=== PATIENT | male | born 1970 | race Two or more races ===

== ENCOUNTER 2020-07-12 09:22 | Outpatient (REF) | payer OTHER, SELFPAY ==
[2020-07-12 10:59] LABS: Alanine Aminotransferase 22 U/L (0-40); Albumin Level 4.2 g/dL (3.5-5.0); Alkaline Phosphatase 104 U/L (39-117); Anion Gap 11 (12-20); Aspartate Amino Transferase 16 U/L (5-37); Bilirubin Total 1.5 mg/dL (0.0-1.0); Blood Urea Nitrogen 14 mg/dL (9-16); Carbon Dioxide 28 mmol/L (22-29); Chloride 102 mmol/L (96-108); Estimated Glomerular Filt Rate > 60; Glucose Fasting 231 mg/dL (60-99); Lipase 24 U/L (8-78); Potassium 3.9 mmol/l (3.3-5.1); Sodium 137 mmol/L (135-145); Total Protein 6.7 g/dL (6.5-8.0)
[2020-07-12 11:22] LABS: Vitamin D 25-OH Total 30.2 ng/mL (>30)
== END 2020-07-12 09:23 | disposition home or self-care (01) ==
LOC: HO.LAB 09:22
PROVIDERS: PCP Internal Medicine; Visit Provider Internal Medicine
DX: E78.00 Pure hypercholesterolemia, unspecified (principal); E55.9 Vitamin D deficiency, unspecified; E11.9 Type 2 diabetes mellitus without complications
CPT/HCPCS: 36415; 80053; 82306; 83690

== ENCOUNTER 2020-09-25 10:37 | Emergency (ER) | payer OTHER, SELFPAY ==
--- NOTE | 2020-09-25 11:12 | ED_ITS ---
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) Exacerbating factors: nothing Relieving factors: nothing Associated symptoms: chills, myalgias and headache Treatments prior to arrival fever: none Related Data Allergies Allergy/AdvReac Type Severity Reaction Status Date / Time No Known Allergies Allergy Verified 08/27/20 08:02 [No Known Allergies*] Review of Systems Review of Systems: Constitutional : positive Fever, positive Chills, positive fatigue, positive Malaise ENT/Mouth : no sore throat, no runny nose Eyes: No Discharge Cardiovascular : posChest Pain, No SOB Respiratory : No Cough, No Sputum Gastrointestinal : No Nausea, No Vomiting, No Diarrhea Genitourinary : No Dysuria, No Urinary Frequency Musculoskeletal : positive Myalgia Skin : No rash Neuro : No Headache all other systems are reviewed and are negative [facility] Past Medical History Medical History Diabetes Surgical History No pertinent past surgical history Family History Family History (Updated 08/27/20 @ 08:04 by Maria G Solis Ginna) Father Stroke Mother No problems noted. Sister Diabetes Social History Social History Smoking Status: Never smoker Use of substances other than those prescribed or required for medical reasons: No Advance Directives: No Advance Directives Information Provided: No Physical Exam Vital Signs: Vital Signs: Last Vital Signs Temp 97.8 F 09/25/20 13:12 Pulse 90 09/25/20 13:12 Resp 18 09/25/20 13:12 BP 135/73 09/25/20 13:12 Pulse Ox 95 09/25/20 13:12 Body Mass Index 27.3 Appearance: Alert. Oriented X3. No acute distress. Eyes: Pupils equal, round and reactive to light. ENT: Pharynx normal. Neck: Normal inspection. Neck supple. CVS: Normal heart rate and rhythm. Pulses normal. Respiratory: No respiratory distress. Breath sounds normal. Abdomen: Soft and non-tender. Skin: Skin warm and dry. Normal skin color. Normal skin turgor. Extremities: No lower extremity edema. No calf ttp Neuro: Oriented X 3. No motor deficit. No sensory deficit. Course Course Course Narrative: + COVID no hypoxia, negative TROP and EKG cam be managed as outpatient MDM - Fever MDM Narrative Medical decision making narrative: 49 yo male with reported fever x 2 days with work exposure of COVID now c/o chest pain all day today early AM will need labs, EKG, CXR, COVID swab, and tylenol, not toxic, not pleuritic no hypoxia doubt PE or ACS seems MSK in nature Lab Data Labs: Lab Results 09/25/20 09/25/20 Range/Units 12:11 12:11 Troponin I High Sens < 3.5 (<3.5-35.0) ng/L Coronavirus (PCR) POSITIVE A (Negative) Influenza Type A (PCR) NEGATIVE (Negative) Influenza Type B (PCR) NEGATIVE (Negative) RSV RNA Qual (PCR) NEGATIVE (Negative) ECG Data ECG #1: Attestation: I personally reviewed and interpreted this ECG as follows: ECG interpretation date: 09/25/20 ECG interpretation time: 12:18 Interpretation: Rate: 92 Rhythm: NSR Center: normal Normal P waves. Normal EDUARD. Normal QRS complex. ST T wave : nonspecific, no NIKKI qTC: normal prior studies: no acute ischemia The study has been interpreted contemporaneously by me. . Discharge Plan Discharge Clinical Impression: COVID-19 Patient Disposition: Home, Self-Care Instructions: COVID-19 (Coronavirus Disease 2019) (ED) Additional Instructions: return to ED for any worsening symptoms or concerns Stand Alone Forms: Work/School Release Print Language: [place]
--- NOTE | 2020-09-25 11:19 | XR_ITS ---
EXAMINATION: XR CHEST CLINICAL INFORMATION: Fever, cough COMPARISON: Chest radiographs 12/04/2019 TECHNIQUE: Portable upright AP view of the chest was obtained. FINDINGS: The lungs are clear and there is no airspace consolidation or definite groundglass opacity. There is no effusion. The costophrenic sulci are clear. The heart is normal in size and the hilar and mediastinal contours are normal. Again, calcified granulomata seen left subpleural lateral upper lobe, or approximately 4 mm. No acute bony abnormality. XR/XR chest 1V IMPRESSION: Unremarkable examination.
[2020-09-25 11:23] VITALS: BP 122/83; PULSE 107; RESP 20; TEMP 37.9; O2SAT 98; BMI 27.3
--- NOTE | 2020-09-25 11:25 | ECG_ITS ---
Test Reason : SOB Blood Pressure : / mmHG Vent. Rate : 092 BPM Atrial Rate : 092 BPM P-R Int : 130 ms QRS Dur : 086 ms QT Int : 318 ms P-R-T Axes : 049 031 022 degrees QTc Int : 393 ms Normal sinus rhythm Nonspecific T wave abnormality Abnormal ECG When compared with ECG of 04-DEC-2019 14:53, No significant change was found Referred By: Delisa Munoz Electronically Signed By:Tin Castanon
[2020-09-25] MEDS: Acetaminophen 325 MG TABLET 650 MG PO (12:04)
[2020-09-25 12:48] LABS: Troponin-I High Sensitivity < 3.5 ng/L (<3.5-35.0)
[2020-09-25 13:01] LABS: Influenza A PCR NEGATIVE (Negative); Influenza B PCR NEGATIVE (Negative); Resp Syncy Virus RNA Qual PCR NEGATIVE (Negative); SARS COV2 PCR INHOUSE POSITIVE (Negative)
[2020-09-25 13:12] VITALS: BP 135/73; PULSE 90; RESP 18; TEMP 36.6; O2SAT 95
== END 2020-09-25 14:12 | disposition home or self-care (01) ==
PROVIDERS: Emergency Provider Emergency Medicine; PCP Internal Medicine
DX: U07.1 COVID-19 (principal); E11.9 Type 2 diabetes mellitus without complications
CPT/HCPCS: 0241U; 71045; 84484; 93005; 99284

== ENCOUNTER 2020-10-02 11:27 | Emergency (ER) | payer OTHER, SELFPAY ==
[2020-10-02 11:55] VITALS: BP 136/71; PULSE 96; RESP 16; TEMP 37.5; O2SAT 96; BMI 27.3
[2020-10-02 12:00] VITALS: BP 133/66; PULSE 96; RESP 16; TEMP 36.9; O2SAT 98
--- NOTE | 2020-10-02 12:04 | ED.GENADULT ---
HPI - General Adult General Chief complaint: Weakness Stated complaint: covid symptoms Time Seen by Provider: 10/02/20 12:04 Source: patient Mode of arrival: ambulatory Limitations: language barrier History of Present Illness HPI narrative: 49 y/o male who was diagnosed with COVID-19 nine days ago presents to the ED from home with reports of decreased appetite and generalized weakness. He called his doctor this morning who instructed him to come to the ER for further evaluation. He denies vomiting, diarrhea, abdominal pain, SOB, chest pain or difficultly breathing. He has been drinking Gatorade and urinating normally. He reports body aches and mild non-productive cough that have been the same since his diagnosis 9 days ago. Related Data Previous Rx's Medication Instructions Recorded ondansetron HCl [Zofran] 4 mg PO Q8H PRN #10 tab 10/02/20 Allergies Allergy/AdvReac Type Severity Reaction Status Date / Time No Known Allergies Allergy Verified 08/27/20 08:02 [No Known Allergies*] Review of Systems Review of Systems: Constitutional: + Fever, No Chills ENT/Mouth: No sore throat, No Rhinorrhea, No Swallowing Difficulty Eyes: No Eye Pain, No Swelling, No Redness Cardiovascular: No Chest Pain, No SOB, No Orthopnea, No Edema Respiratory: No Cough, No Sputum, No Wheezing, No dyspnea Gastrointestinal: + Nausea, No Vomiting, No Diarrhea, No abdominal Pain, No Hematochezia, No Melena Genitourinary: No Dysuria, No Urinary Frequency, No Hematuria Musculoskeletal: No joint pain, + Myalgias Skin: No Skin Lesions, No rash Neuro: + Weakness, No Numbness, No Dizziness, + Headache Psych: No Anxiety/Panic, No Depression Heme/Lymph: No Bruising, No Lymphadenopathy Endocrine: No Polyuria, No Polydipsia PMFSH Past Medical History Attestation statement: The following information was validated with the patient. Medical History Diabetes Surgical History No pertinent past surgical history Family History Family History (Updated 08/27/20 @ 08:04 by SUMMER Escalera) Father Stroke Mother No problems noted. Sister Diabetes Social History Social History Alcohol intake: never Smoking Status: Never smoker Advance Directives: No Advance Directives Information Provided: No Physical Exam Vital Signs: Vital Signs: Last Vital Signs Temp 99.5 F 10/02/20 11:55 Pulse 96 10/02/20 11:55 Resp 16 10/02/20 11:55 BP 136/71 10/02/20 11:55 Pulse Ox 96 10/02/20 11:55 Body Mass Index 27.3 Appearance: Alert. Oriented X3. No acute distress. Eyes: Pupils equal, round and reactive to light. ENT: Pharynx normal. Neck: Normal inspection. Neck supple. CVS: Normal heart rate and rhythm. Pulses normal. Respiratory: No respiratory distress. Breath sounds normal. Abdomen: Soft and nontender. +BS x4 Skin: Skin warm and dry. Normal skin color. Normal skin turgor. No rashes. Extremities: No lower extremity edema. Neuro: Oriented X 3. No motor deficit. No sensory deficit. Course Course Course Narrative: 49 y/o male diagnosed with COVID-19 nine days ago presenting with persistent symptoms. Vitals are reassuring and he denies SOB, chest pain, difficulty breathing. No N/V/D. Will check basic labs to r/o renal failure and metabolic derrangements. Reevaluation(s) Reevaluation #1: Lab workup unremarkable aside from hyperglycemia, 320. Has been drinking gatorade. Vitals stable. No SOB and lungs are clear. He is stable for dischage. He has been counseled and all questions were answered. Medical Decision Making Lab Data Result diagrams: 10/02/20 12:29 10/02/20 12:29 Labs: Lab Results 10/02/20 10/02/20 Range/Units 12:29 12:29 WBC 4.4 L (4.8-10.8) X10*3/uL RBC 4.95 (4.60-5.80) X10*6/uL Hgb 14.6 (14.0-18.0) g/dl Hct 43.6 (42-52) % MCV 88.1 (80-98) fL MCH 29.5 (27.0-33.0) pg MCHC 33.5 (31.0-36.0) g/dl RDW 11.3 (11.0-16.0) % Plt Count 100 L (160-400) X10*3/uL MPV 11.9 (9.4-12.4) fL Immature Gran % (Auto) 0.5 H (0.0-0.4) % Neut % (Auto) 73.8 H (45-73) % Lymph % (Auto) 18.6 L (20-40) % [place] % (Auto) 6.9 (2-11) % Eos % (Auto) 0.0 (0-4) % Baso % (Auto) 0.2 (0-2) % Lymph # (Auto) 0.8 L (1.2-4.9) X10*3/uL [place] # (Auto) 0.3 (0.1-1.2) X10*3/uL Eos # (Auto) 0.0 (0.0-0.4) X10*3/uL Baso # (Auto) 0.0 (0.0-0.2) X10*3/uL Abs Immat Gran (auto) 0.02 (0.00-0.03) X10*3/uL Absolute Neuts (auto) 3.2 (2.0-8.3) X10*3/uL Absolute Nucleated RBC 0.000 (0.0-0.012) X10*3/uL Nucleated RBC % (auto) 0.0 (0.0-0.2) /100WBC Sodium 134 L (135-145) mmol/L Potassium 4.3 (3.3-5.1) mmol/l Chloride 97 (96-108) mmol/L Carbon Dioxide 28 (22-29) mmol/L Anion Gap 13 (12-20) BUN 16 (9-16) mg/dL Creatinine 1.10 (0.5-1.4) mg/dL Estim Creat Clear Calc 78.5 Estimated GFR > 60 Random Glucose 321 H (60-115) mg/dL Calcium 8.2 L D (8.4-10.2) mg/dL Magnesium 1.9 (1.6-2.6) mg/dL Discharge Plan Discharge Clinical Impression: COVID-19 Patient Disposition: Home, Self-Care Instructions: COVID-19 (Coronavirus Disease 2019) (ED) Additional Instructions: You have COVID-19. Time to feel better varies from case to case. Your lab workup today was largely unremarkable. Your glucose was elevated at 320. Your vital signs were normal. There is no indication for admission to the hospital at this time. It is important that you stay hydrated and continue to eat small meals throughout the day even though you do not have much an appetite. Take over the counter cold/flu medications as needed for your symptoms. If you develop shortness of breath, chest pain, difficulty breathing, persistent vomiting or diarrhea come back to the ER for further evaluation. Follow up with your doctor this week. Prescriptions: New ondansetron HCl [Zofran] 4 mg tablet 4 mg PO Q8H PRN (Reason: nausea and vomiting) Qty: 10 RF: 0
[2020-10-02 12:35] LABS: MANUAL DIFF FLAG NO
[2020-10-02 12:37] LABS: Basophils Percent Auto 0.2 % (0-2); Hematocrit 43.6 % (42-52); Hemoglobin 14.6 g/dl (14.0-18.0); Imm Gran Abs Auto 0.02 X10*3/uL (0.00-0.03); Imm Gran Pct Auto 0.5 % (0.0-0.4); Lymphocytes Absolute Auto 0.8 X10*3/uL (1.2-4.9); Lymphocytes Percent Auto 18.6 % (20-40); Mean Corpuscular HGB Conc 33.5 g/dl (31.0-36.0); Mean Corpuscular Hemoglobin 29.5 pg (27.0-33.0); Mean Corpuscular Volume 88.1 fL (80-98); Mean Platelet Volume 11.9 fL (9.4-12.4); Monocytes Absolute Auto 0.3 X10*3/uL (0.1-1.2); Monocytes Percent Auto 6.9 % (2-11); Neutrophils Absolute Auto 3.2 X10*3/uL (2.0-8.3); Neutrophils Percent Auto 73.8 % (45-73); Platelet Count 100 X10*3/uL (160-400); Red Blood Count 4.95 X10*6/uL (4.60-5.80); Red Cell Distribution Width 11.3 % (11.0-16.0); White Blood Count 4.4 X10*3/uL (4.8-10.8)
[2020-10-02 13:11] LABS: Anion Gap 13 (12-20); Blood Urea Nitrogen 16 mg/dL (9-16); Calcium 8.2 mg/dL (8.4-10.2); Carbon Dioxide 28 mmol/L (22-29); Chloride 97 mmol/L (96-108); Creatinine Clr Calc Pharmacy 78.5; Estimated Glomerular Filt Rate > 60; Glucose Random 321 mg/dL (60-115); Magnesium 1.9 mg/dL (1.6-2.6); Potassium 4.3 mmol/l (3.3-5.1); Sodium 134 mmol/L (135-145)
== END 2020-10-02 13:46 | disposition home or self-care (01) ==
PROVIDERS: Physician Assistant; Emergency Provider Emergency Medicine; PCP Internal Medicine
DX: U07.1 COVID-19 (principal); E11.9 Type 2 diabetes mellitus without complications
CPT/HCPCS: 36415; 80048; 83735; 85025; 99283; 99284

== ENCOUNTER 2020-10-07 19:30 | Inpatient (IN) | payer OTHER, SELFPAY ==
[2020-10-07 19:44] VITALS: BP 141/79; PULSE 91; RESP 26; TEMP 36.9; O2SAT 85; BMI 27.3
--- NOTE | 2020-10-07 19:47 | ECG_ITS ---
Test Reason : SOB Blood Pressure : / mmHG Vent. Rate : 091 BPM Atrial Rate : 091 BPM P-R Int : 118 ms QRS Dur : 086 ms QT Int : 386 ms P-R-T Axes : 047 020 023 degrees QTc Int : 474 ms Normal sinus rhythm Normal ECG When compared with ECG of 25-SEP-2020 12:08, QT has lengthened Referred By: Kevan Rojas Electronically Signed By:NANO OJEDA
[2020-10-07 20:14] LABS: Glucose, Whole Blood 304 mg/dL (60-115)
[2020-10-07 20:22] LABS: Basophils Percent Auto 0.2 % (0-2); Eosinophils Percent Auto 0.8 % (0-4); Hematocrit 41.2 % (42-52); Imm Gran Abs Auto 0.02 X10*3/uL (0.00-0.03); Imm Gran Pct Auto 0.4 % (0.0-0.4); Lymphocytes Absolute Auto 1.2 X10*3/uL (1.2-4.9); MANUAL DIFF FLAG SCAN; Mean Corpuscular Hemoglobin 29.8 pg (27.0-33.0); Mean Corpuscular Volume 87.7 fL (80-98); Mean Platelet Volume 11.1 fL (9.4-12.4); Monocytes Absolute Auto 0.6 X10*3/uL (0.1-1.2); Neutrophils Absolute Auto 3.5 X10*3/uL (2.0-8.3); Neutrophils Percent Auto 65.6 % (45-73); Platelet Count 186 X10*3/uL (160-400); Red Cell Distribution Width 11.2 % (11.0-16.0); SCAN SMEAR FLAG 1; White Blood Count 5.3 X10*3/uL (4.8-10.8)
[2020-10-07 20:28] LABS: Prothrombin Time 11.7 SEC (10.8-13.0)
[2020-10-07 20:31] LABS: D Dimer 432 NG/ML; Partial Thromboplastin Time 28.7 SEC (24.1-38.0)
[2020-10-07 20:39] LABS: SLIDE REVIEW VERIFIED
--- NOTE | 2020-10-07 20:41 | ED_ITS ---
HPI - SOB/Dyspnea General Chief Complaint: Dyspnea Stated Complaint: ?vovid Time Seen by Provider: 10/07/20 19:36 Source: patient Mode of arrival: ambulatory Limitations: no limitations History of Present Illness HPI Narrative: Patient presents to the ED for worsening cough with chest pain. Patient presented with O2 saturation 85% L on room air but was not in any distress. Patient is a known COVID positive. Patient denies any swelling of lower extremity, calf pain, coughing up blood. Related Data Previous Rx's Medication Instructions Recorded ondansetron HCl [Zofran] 4 mg PO Q8H PRN #10 tab 10/02/20 Allergies Allergy/AdvReac Type Severity Reaction Status Date / Time No Known Allergies Allergy Verified 10/07/20 19:48 [No Known Allergies*] Review of Systems Review of Systems: Yes all other systems are reviewed and are negative Constitutional: Constitutional: Reports as per HPI, Reports no additional constitutional complaints and Reports fatigue Eyes: Eyes: Reports as per HPI and Reports no additional eye complaints ENT: Reports system reviewed and no additional complaints, except as documented and Reports as per HPI Cardiovascular: Cardiovascular: Reports as per HPI and Reports no additional cardiovascular complaints Respiratory: Respiratory: Reports as per HPI, Reports no additional respiratory complaints and Reports pain with cough Gastrointestinal: Gastrointestinal: Reports as per HPI and Reports no additional gastrointestinal complaints Genitourinary: Genitourinary: Reports no additional male genitourinary complaints and Reports as per HPI Musculoskeletal: Musculoskeletal: Reports no additional musculoskeletal complaints and Reports as per HPI Integumentary/Breasts: Skin/Breast: Reports system reviewed and no additional complaints, except as docu and Reports as per HPI Neurologic: Reports system reviewed and no additional complaints, except as documented and Reports as per HPI Psychiatric: Psychiatric: Reports no additional psychiatric complaints and Reports as per HPI Endocrine: Endocrine: Reports fatigue [facility] Past Medical History Medical History Diabetes Surgical History No pertinent past surgical history Family History Family History (Updated 08/27/20 @ 08:04 by SUMMER Escalera) Father Stroke Mother No problems noted. Sister Diabetes Social History Social History Alcohol intake: never Smoking Status: Never smoker Advance Directives: No Advance Directives Information Provided: Yes Physical Exam Vital Signs: Vital Signs: Last Vital Signs Temp 97.9 F 10/08/20 00:00 Pulse 73 10/08/20 00:00 Resp 23 H 10/08/20 00:00 BP 156/81 H 10/08/20 00:00 Pulse Ox 94 10/08/20 00:00 Body Mass Index 27.3 Const: General: cooperative, healthy appearing, comfortable, no acute distress and well developed Orientation/consciousness: patient oriented x3 HENMT: Head: Yes normal to inspection and Yes No palpable skull fracture present Eyes: General: appearance normal, both eyes and all related structures Neck: Neck: Yes normal visual inspection and Yes full ROM Chest: Chest palpation & inspection: normal inspection of the chest and normal palpation of entire chest wall Breast/axilla inspection: normal inspection of the breasts Resp: Effort & Inspection: normal respiratory effort and able to speak in complete sentences Auscultation: clear to auscultation bilaterally Cardio: Jugular venous distension: no JVD Heart sounds: S1 normal heart sound present and S2 normal heart sound present GI: Inspection: Yes normal to inspection and No abdominal wall ecchymosis Palpation (GI): Soft to palpation, not firm, nontender, no guarding and not rigid : General: No CVA tenderness and Yes no CVA tenderness Back/Spine/Pelvis: Back: no CVA tenderness, No CVA tenderness and No back tenderness Skin: General skin exam: no rashes or lesions noted Neuro: General: patient oriented x3, gait normal and CN's II-XI intact bilaterally Cranial nerves: Yes CN's II-XII intact bilaterally Extrem: Other: negtaive For swelling of lower extremities, calf pain, redness, or pitting edema General: Yes normal to inspection and Yes full ROM Psych: Appearance: grossly normal, well kempt and not disheveled Course Course Course Narrative: Patient on 4 L of oxygen nasal cannula O2 saturation 93%. Patient not any distress. Patient have repeat chest x-ray, labs, Reevaluation(s) Reevaluation #1: Patient states not in distress. Patient has no elevated white blood cell count. Patient had Mya x-ray couple of days ago. Patient is sent for chest CT to rule out PE in the meantime patient given Decadron and also lactic and blood culture sent. Would not give patient 2nd fluids so he does not become fluid overload in COVID Time: 21:20 Reevaluation #2: Chest CT negative for PE. Patient started on Decadron. Spoke with hospitalist who recommend starting IV antibiotics although this is a viral infection. Patient to be admitted. Patient O2 saturation on 4 L 97%. Time: 22:53 MDM - SOB/Dyspnea MDM Narrative Medical decision making narrative: COVID-19. Lab Data Result diagrams: 10/07/20 20:15 10/07/20 20:15 Labs: Lab Results 10/07/20 10/07/20 10/07/20 Range/Units 20:04 20:15 20:15 WBC 5.3 (4.8-10.8) X10*3/uL RBC 4.70 (4.60-5.80) X10*6/uL Hgb 14.0 (14.0-18.0) g/dl Hct 41.2 L (42-52) % MCV 87.7 (80-98) fL MCH 29.8 (27.0-33.0) pg MCHC 34.0 (31.0-36.0) g/dl RDW 11.2 (11.0-16.0) % Plt Count 186 D (160-400) X10*3/uL MPV 11.1 (9.4-12.4) fL Immature Gran % (Auto) 0.4 (0.0-0.4) % Neut % (Auto) 65.6 (45-73) % Lymph % (Auto) 22.0 (20-40) % [place] % (Auto) 11.0 (2-11) % Eos % (Auto) 0.8 (0-4) % Baso % (Auto) 0.2 (0-2) % Lymph # (Auto) 1.2 (1.2-4.9) X10*3/uL [place] # (Auto) 0.6 (0.1-1.2) X10*3/uL Eos # (Auto) 0.0 (0.0-0.4) X10*3/uL Baso # (Auto) 0.0 (0.0-0.2) X10*3/uL Abs Immat Gran (auto) 0.02 (0.00-0.03) X10*3/uL Absolute Neuts (auto) 3.5 (2.0-8.3) X10*3/uL Absolute Nucleated RBC 0.000 (0.0-0.012) X10*3/uL Nucleated RBC % (auto) 0.0 (0.0-0.2) /100WBC Smear Tech's Comments VERIFIED PT 11.7 (10.8-13.0) SEC INR 1.0 (0.9-1.1) APTT 28.7 (24.1-38.0) SEC D-Dimer 432 NG/ML Sodium (135-145) mmol/L Potassium (3.3-5.1) mmol/l Chloride (96-108) mmol/L Carbon Dioxide (22-29) mmol/L Anion Gap (12-20) BUN (9-16) mg/dL Creatinine (0.5-1.4) mg/dL Estim Creat Clear Calc Estimated GFR POC Glucose 304 H (60-115) mg/dL Random Glucose (60-115) mg/dL Lactic Acid (0.5-2.0) mmol/L Calcium (8.4-10.2) mg/dL Ferritin (20-250) ng/mL Total Bilirubin (0.0-1.0) mg/dL Direct Bilirubin (0.0-0.5) mg/dL AST (5-37) U/L ALT (0-40) U/L Alkaline Phosphatase (39-117) U/L Lactate Dehydrogenase (118-273) U/L Troponin I High Sens (<3.5-35.0) ng/L B-Natriuretic Peptide (<100) pg/mL Total Protein (6.5-8.0) g/dL Albumin (3.5-5.0) g/dL Procalcitonin ng/mL 10/07/20 10/07/20 10/07/20 Range/Units 20:15 20:15 20:15 WBC (4.8-10.8) X10*3/uL RBC (4.60-5.80) X10*6/uL Hgb (14.0-18.0) g/dl Hct (42-52) % MCV (80-98) fL MCH (27.0-33.0) pg MCHC (31.0-36.0) g/dl RDW (11.0-16.0) % Plt Count (160-400) X10*3/uL MPV (9.4-12.4) fL Immature Gran % (Auto) (0.0-0.4) % Neut % (Auto) (45-73) % Lymph % (Auto) (20-40) % [place] % (Auto) (2-11) % Eos % (Auto) (0-4) % Baso % (Auto) (0-2) % Lymph # (Auto) (1.2-4.9) X10*3/uL [place] # (Auto) (0.1-1.2) X10*3/uL Eos # (Auto) (0.0-0.4) X10*3/uL Baso # (Auto) (0.0-0.2) X10*3/uL Abs Immat Gran (auto) (0.00-0.03) X10*3/uL Absolute Neuts (auto) (2.0-8.3) X10*3/uL Absolute Nucleated RBC (0.0-0.012) X10*3/uL Nucleated RBC % (auto) (0.0-0.2) /100WBC Smear Tech's Comments PT (10.8-13.0) SEC INR (0.9-1.1) APTT (24.1-38.0) SEC D-Dimer NG/ML Sodium 138 (135-145) mmol/L Potassium 4.3 (3.3-5.1) mmol/l Chloride 100 (96-108) mmol/L Carbon Dioxide 30 H (22-29) mmol/L Anion Gap 12 (12-20) BUN 16 (9-16) mg/dL Creatinine 0.89 (0.5-1.4) mg/dL Estim Creat Clear Calc 97.1 Estimated GFR > 60 POC Glucose (60-115) mg/dL Random Glucose 346 H (60-115) mg/dL Lactic Acid (0.5-2.0) mmol/L Calcium 8.1 L (8.4-10.2) mg/dL Ferritin 1032 H (20-250) ng/mL Total Bilirubin 0.8 (0.0-1.0) mg/dL Direct Bilirubin 0.3 (0.0-0.5) mg/dL AST 31 D (5-37) U/L ALT 25 (0-40) U/L Alkaline Phosphatase 63 D (39-117) U/L Lactate Dehydrogenase 233 (118-273) U/L Troponin I High Sens < 3.5 (<3.5-35.0) ng/L B-Natriuretic Peptide (<100) pg/mL Total Protein 5.7 L (6.5-8.0) g/dL Albumin 3.1 L D (3.5-5.0) g/dL Procalcitonin 0.13 ng/mL 10/07/20 10/07/20 Range/Units 20:15 22:28 WBC (4.8-10.8) X10*3/uL RBC (4.60-5.80) X10*6/uL Hgb (14.0-18.0) g/dl Hct (42-52) % MCV (80-98) fL MCH (27.0-33.0) pg MCHC (31.0-36.0) g/dl RDW (11.0-16.0) % Plt Count (160-400) X10*3/uL MPV (9.4-12.4) fL Immature Gran % (Auto) (0.0-0.4) % Neut % (Auto) (45-73) % Lymph % (Auto) (20-40) % [place] % (Auto) (2-11) % Eos % (Auto) (0-4) % Baso % (Auto) (0-2) % Lymph # (Auto) (1.2-4.9) X10*3/uL [place] # (Auto) (0.1-1.2) X10*3/uL Eos # (Auto) (0.0-0.4) X10*3/uL Baso # (Auto) (0.0-0.2) X10*3/uL Abs Immat Gran (auto) (0.00-0.03) X10*3/uL Absolute Neuts (auto) (2.0-8.3) X10*3/uL Absolute Nucleated RBC (0.0-0.012) X10*3/uL Nucleated RBC % (auto) (0.0-0.2) /100WBC Smear Tech's Comments PT (10.8-13.0) SEC INR (0.9-1.1) APTT (24.1-38.0) SEC D-Dimer NG/ML Sodium (135-145) mmol/L Potassium (3.3-5.1) mmol/l Chloride (96-108) mmol/L Carbon Dioxide (22-29) mmol/L Anion Gap (12-20) BUN (9-16) mg/dL Creatinine (0.5-1.4) mg/dL Estim Creat Clear Calc Estimated GFR POC Glucose (60-115) mg/dL Random Glucose (60-115) mg/dL Lactic Acid 1.2 (0.5-2.0) mmol/L Calcium (8.4-10.2) mg/dL Ferritin (20-250) ng/mL Total Bilirubin (0.0-1.0) mg/dL Direct Bilirubin (0.0-0.5) mg/dL AST (5-37) U/L ALT (0-40) U/L Alkaline Phosphatase (39-117) U/L Lactate Dehydrogenase (118-273) U/L Troponin I High Sens (<3.5-35.0) ng/L B-Natriuretic Peptide 53 (<100) pg/mL Total Protein (6.5-8.0) g/dL Albumin (3.5-5.0) g/dL Procalcitonin ng/mL ECG Data Interpretation: Normal sinus rhythm. Normal EKG. Ventricular rate 91. AR interval 118. QRS duration 86. QTC 474. Negative STEMI Discharge Plan Discharge Clinical Impression: COVID-19 Patient Disposition: Admitted As Inpatient Interventions: Admission Worksheet (ED) Last Done: 10/08/20 00:19 Discharge Date/Time: 10/08/20 01:45
[2020-10-07] MEDS: 0.9 % Sodium Chloride 1,000 ML 999 ML IV (20:48)
[2020-10-07 20:51] LABS: Alanine Aminotransferase 25 U/L (0-40); Albumin Level 3.1 g/dL (3.5-5.0); Alkaline Phosphatase 63 U/L (39-117); Anion Gap 12 (12-20); Aspartate Amino Transferase 31 U/L (5-37); Bilirubin Direct 0.3 mg/dL (0.0-0.5); Bilirubin Total 0.8 mg/dL (0.0-1.0); Blood Urea Nitrogen 16 mg/dL (9-16); Calcium 8.1 mg/dL (8.4-10.2); Carbon Dioxide 30 mmol/L (22-29); Chloride 100 mmol/L (96-108); Creatinine Clr Calc Pharmacy 97.1; Estimated Glomerular Filt Rate > 60; Glucose Random 346 mg/dL (60-115); Lactate Dehydrogenase 233 U/L (118-273); Potassium 4.3 mmol/l (3.3-5.1); Sodium 138 mmol/L (135-145); Total Protein 5.7 g/dL (6.5-8.0)
[2020-10-07 20:54] LABS: B Type Natriuretic Peptide 53 pg/mL (<100); Troponin-I High Sensitivity < 3.5 ng/L (<3.5-35.0)
--- NOTE | 2020-10-07 20:58 | CT_ITS ---
EXAMINATION: CT ANGIOGRAM OF THE CHEST WITH AND WITHOUT CONTRAST (CT PULMONARY ANGIOGRAM FOR PE) CLINICAL INFORMATION: Reason for Exam D-dimer elevated. Hypoxic. COVID positive. PE? COMPARISON: None TECHNIQUE: Prior to contrast administration, noncontrast localization images were obtained. Subsequently, multidetector volumetric imaging was performed from the thoracic inlet to below the diaphragms following the administration of 80 mL Omnipaque 350 intravenous contrast. No contrast reaction reported Sagittal, coronal, and MIP oblique sagittal reformatted images were obtained on the CT workstation, uploaded to PACS, and reviewed. This CT examination was performed using dose optimization techniques as appropriate, variously including the following: *Automated exposure control *Adjustment of mA and/or kV according to patient size (this includes techniques or standardized protocols for targeted exams where dose is matched to indication/reason for exam; i.e. extremities or head) *Use of iterative reconstruction technique Total exam dose-length product 335 mGy-cm FINDINGS: QUALITY OF STUDY/CONTRAST BOLUS: Satisfactory. PULMONARY ARTERIES: No central or segmental pulmonary emboli. THORACIC AORTA: No aneurysm or dissection. LUNG: There are bilateral upper lobe, superior segment and posterior segment lower lobe and lingular peripherally based infiltrate/consolidation. PLEURA: No pleural effusion or pneumothorax. MEDIASTINUM: Normal heart size. No pericardial effusion. No hilar or mediastinal lymphadenopathy. No evidence of septal bowing or right heart strain. CHEST WALL/AXILLA: No axillary or internal mammary lymphadenopathy. OSSEOUS STRUCTURES: No acute or suspicious osseous abnormality. UPPER ABDOMEN: Visualized liver, spleen, pancreas, bilateral adrenal glands and the gallbladder appears unremarkable. No reflux of contrast into the hepatic veins to suggest elevated right heart pressures. CT/CT angio chest PE protocol IMPRESSION: No evidence of PE. No evidence of aortic aneurysm or dissection. Diffuse multilobar infiltrates. VTE: negative
[2020-10-07 21:10] LABS: Procalcitonin 0.13 ng/mL
[2020-10-07 21:54] LABS: Ferritin 1032 ng/mL (20-250)
[2020-10-07] MEDS: dexAMETHasone sod phosphate 4 MG/ML VIAL 6 MG IVPUSH (22:00)
[2020-10-07] MEDS: iohexoL 350 MG/ML 100 ML INFUS..BTL 65 ML IV (22:08)
[2020-10-07 22:40] VITALS: BP 137/87; PULSE 77; RESP 22; TEMP 37.1; O2SAT 3
--- NOTE | 2020-10-07 22:47 | P.HPHOSP_ITS ---
History of Present Illness Date of Service: 10/07/20 Chief Complaint: Shortness of breath 49Y male with a past medical history of diabetes, recent diagnosis of COVID about 2 weeks ago presented to the hospital with complaint of shortness of breath. Patient mentioned that over the past few days he has been having increased shortness of breath and cough with associated chest discomfort. Denies any fever chills. Denies any headaches numbness tingling. Denies any GI or symptoms. Review of all other systems is negative except mentioned above ER course: Per ER team patient appears to be in no acute distress. Patient was saturating at 85% on room air. Placed on 4L supplemental oxygen with improvement in oxygen to 93%. Patient was given dexamethasone and antibiotics for multifocal pneumonia noted o n the CT scan. No evidence of PE. Review of Systems Neurologic: Reports system reviewed and no additional complaints, except as documented and Reports as per [facility] Medical History Diabetes Family History (Updated 08/27/20 @ 08:04 by SUMMER Escalera) Father Stroke Mother No problems noted. Sister Diabetes Surgical History No pertinent past surgical history Social History Household Members: Spouse Housing: House Do you presently have visiting nurse or other home services: No Alcohol intake: never Smoking Status: Never smoker Use of substances other than those prescribed or required for medical reasons: No Have you been hit, kicked, punched, or otherwise hurt by someone within the past year? If so, by whom?: No Do you feel safe in your current relationship?: Yes Is there a partner from a previous relationship who is making you feel unsafe now?: No Are you made to feel afraid or neglected: No Advance Directives: No Advance Directives Information Provided: Yes Do you have thoughts of harming others: None Do you have a plan to hurt others: No Plan Recently lost weight without trying: No Meds Allergies Allergy/AdvReac Type Severity Reaction Status Date / Time No Known Allergies Allergy Verified 10/07/20 19:48 [No Known Allergies*] Physical Exam Vital Signs and Narrative: Vital Signs: Last Vital Signs Temp 98.8 F 10/07/20 22:40 Pulse 77 10/07/20 22:40 Resp 22 H 10/07/20 22:40 BP 137/87 10/07/20 22:40 Pulse Ox 3 L 10/07/20 22:40 Body Mass Index 27.3 Gen: Appears be in no acute distress HEENT: NCAT, Moist mucosa. Pulmonary: Course breath sounds, fair air entry CVS: Normal S1-S2 Abdomen: BS+, Soft, Nontender Extremities: Warm well perfused Neuro: Alert and awake. Results Labs CBC and Chem 7: 10/07/20 20:15 10/07/20 20:15 Labs: Laboratory Results - last 24 hr 10/07/20 10/07/20 10/07/20 20:04 20:15 20:15 MCV 87.7 MCH 29.8 MCHC 34.0 RDW 11.2 Plt Count 186 D MPV 11.1 Immature Gran % (Auto) 0.4 Neut % (Auto) 65.6 Lymph % (Auto) 22.0 Sunflower % (Auto) 11.0 Eos % (Auto) 0.8 Baso % (Auto) 0.2 Lymph # (Auto) 1.2 Sunflower # (Auto) 0.6 Eos # (Auto) 0.0 Baso # (Auto) 0.0 Abs Immat Gran (auto) 0.02 Absolute Neuts (auto) 3.5 Absolute Nucleated RBC 0.000 Nucleated RBC % (auto) 0.0 Smear Tech's Comments VERIFIED PT 11.7 INR 1.0 APTT 28.7 D-Dimer 432 Anion Gap Estim Creat Clear Calc Estimated GFR POC Glucose 304 H Random Glucose Calcium Ferritin Total Bilirubin Direct Bilirubin AST ALT Alkaline Phosphatase Lactate Dehydrogenase Troponin I High Sens B-Natriuretic Peptide Total Protein Albumin Procalcitonin 10/07/20 10/07/20 10/07/20 20:15 20:15 20:15 MCV MCH MCHC RDW Plt Count MPV Immature Gran % (Auto) Neut % (Auto) Lymph % (Auto) Sunflower % (Auto) Eos % (Auto) Baso % (Auto) Lymph # (Auto) Sunflower # (Auto) Eos # (Auto) Baso # (Auto) Abs Immat Gran (auto) Absolute Neuts (auto) Absolute Nucleated RBC Nucleated RBC % (auto) Smear Tech's Comments PT INR APTT D-Dimer Anion Gap 12 Estim Creat Clear Calc 97.1 Estimated GFR > 60 POC Glucose Random Glucose 346 H Calcium 8.1 L Ferritin 1032 H Total Bilirubin 0.8 Direct Bilirubin 0.3 AST 31 D ALT 25 Alkaline Phosphatase 63 D Lactate Dehydrogenase 233 Troponin I High Sens < 3.5 B-Natriuretic Peptide Total Protein 5.7 L Albumin 3.1 L D Procalcitonin 0.13 10/07/20 20:15 MCV MCH MCHC RDW Plt Count MPV Immature Gran % (Auto) Neut % (Auto) Lymph % (Auto) Sunflower % (Auto) Eos % (Auto) Baso % (Auto) Lymph # (Auto) Sunflower # (Auto) Eos # (Auto) Baso # (Auto) Abs Immat Gran (auto) Absolute Neuts (auto) Absolute Nucleated RBC Nucleated RBC % (auto) Smear Tech's Comments PT INR APTT D-Dimer Anion Gap Estim Creat Clear Calc Estimated GFR POC Glucose Random Glucose Calcium Ferritin Total Bilirubin Direct Bilirubin AST ALT Alkaline Phosphatase Lactate Dehydrogenase Troponin I High Sens B-Natriuretic Peptide 53 Total Protein Albumin Procalcitonin Imaging Radiologist's Impressions: Impressions Chest CTA 10/07/20 20:58 IMPRESSION: No evidence of PE. No evidence of aortic aneurysm or dissection. Diffuse multilobar infiltrates. VTE: negative Assessment and Plan (1) COVID-19: Status: Acute 49-year-old male with a past medical history of diabetes presented to the hospital with a chief complaint of shortness of breath. Patient was diagnosed with COVID about 2 weeks ago. Currently noted to be hypoxic CT scan showed multifocal pneumonia. Admitted to the hospital for further management. COVID-19 pneumonia: CT scan showed multifocal pneumonia Continue ceftriaxone azithromycin. Patient was hypoxic to 85% on room air-supplemental oxygen with goal saturation about 95%. Titrate oxygen requirements as needed. Albuterol MDI Continue dexamethasone 6 mg daily ID consult Positive D-dimer: CT scan showed no evidence of PE. Diabetes: Insulin sliding scale DVT prophylaxis: Lovenox Full code
[2020-10-07 22:49] LABS: Lactic Acid 1.2 mmol/L (0.5-2.0)
[2020-10-07] MEDS: cefTRIAXone sodium 1 GM in 0.9 % Sodium Chloride 50 ML IV (23:11)
[2020-10-07] MEDS: Azithromycin 500 MG in 0.9 % Sodium Chloride 250 ML 125 MG IV (23:39)
[2020-10-07 23:57] VITALS: BP 137/87; PULSE 77; RESP 21; TEMP 36.9; O2SAT 3
[2020-10-08] VITALS (7 sets, daily range): BP systolic 130–158; BP diastolic 81–92; PULSE 73–78; RESP 16–23; TEMP 36.1–36.6; O2SAT 93–97; BMI 21.4
[2020-10-08 00:27] LABS: Troponin-I High Sensitivity < 3.5 ng/L (<3.5-35.0)
[2020-10-08] MEDS: 0.9 % Sodium Chloride Flush 3 ML SYRINGE IVFLUSH ×4 (01:45→23:52)
[2020-10-08] MEDS: Enoxaparin Sodium 40 MG/0.4 ML SYRINGE SUBCUT ×2 (01:45→23:45)
[2020-10-08 07:01] LABS: Hematocrit 42.9 % (42-52); Hemoglobin 14.4 g/dl (14.0-18.0); Imm Gran Abs Auto 0.02 X10*3/uL (0.00-0.03); Imm Gran Pct Auto 0.6 % (0.0-0.4); Lymphocytes Absolute Auto 0.6 X10*3/uL (1.2-4.9); MANUAL DIFF FLAG SCAN; Mean Corpuscular HGB Conc 33.6 g/dl (31.0-36.0); Mean Corpuscular Hemoglobin 29.4 pg (27.0-33.0); Mean Corpuscular Volume 87.6 fL (80-98); Monocytes Absolute Auto 0.1 X10*3/uL (0.1-1.2); Monocytes Percent Auto 3.2 % (2-11); Neutrophils Absolute Auto 2.7 X10*3/uL (2.0-8.3); Neutrophils Percent Auto 78.2 % (45-73); Platelet Count 196 X10*3/uL (160-400); Red Cell Distribution Width 11.2 % (11.0-16.0); SCAN SMEAR FLAG 1; White Blood Count 3.4 X10*3/uL (4.8-10.8)
[2020-10-08 07:30] LABS: Anion Gap 18 (12-20); Blood Urea Nitrogen 17 mg/dL (9-16); Calcium 8.2 mg/dL (8.4-10.2); Carbon Dioxide 24 mmol/L (22-29); Chloride 102 mmol/L (96-108); Creatinine Clr Calc Pharmacy 92.9; Estimated Glomerular Filt Rate > 60; Glucose Random 345 mg/dL (60-115); Potassium 5.3 mmol/l (3.3-5.1); Sodium 139 mmol/L (135-145)
[2020-10-08 08:23] LABS: SLIDE REVIEW VERIFIED
[2020-10-08 09:17] LABS: Glucose, Whole Blood 338 mg/dL (60-115)
[2020-10-08 09:21] LABS: Estimated Average Glucose 283 mg/dL; Hemoglobin A1c % 11.5 %
[2020-10-08] MEDS: dexAMETHasone 6 MG TABLET PO (09:22)
[2020-10-08] MEDS: Insulin Lispro 100 UNIT/ML 3 ML VIAL SUBCUT ×3 (09:24→21:16)
[2020-10-08 11:56] LABS: Glucose, Whole Blood 284 mg/dL (60-115)
[2020-10-08] MEDS: Sodium Polystyrene Sulfon/Sorb 15 GM/60 ML ORAL.SUSP PO (13:03)
[2020-10-08 13:28] LABS: Alanine Aminotransferase 35 U/L (0-40); Albumin Level 3.2 g/dL (3.5-5.0); Alkaline Phosphatase 61 U/L (39-117); Aspartate Amino Transferase 44 U/L (5-37); Bilirubin Direct 0.3 mg/dL (0.0-0.5); Bilirubin Total 0.8 mg/dL (0.0-1.0)
--- NOTE | 2020-10-08 14:17 | P.PNIM_ITS ---
Subjective Subjective Date of Service: 10/08/20 Interval History: covid pneumonia Review of Systems sob seems similar to yesterday, any chest pain or abdominal pain. Physical Exam Vital Signs: Vital Signs: Last Vital Signs Temp 97 F 10/08/20 08:00 Pulse 77 10/08/20 08:00 Resp 16 10/08/20 08:00 BP 143/86 H 10/08/20 09:09 Pulse Ox 95 10/08/20 08:00 Body Mass Index 21.4 Physical exam: Constitutional: Comfortable Cvs: rrr, [id number] , no murmur res: fair air entry , no rales or wheezing abd: no rebound or guarding ,nt, bs present. ext pulses present , no cyanosis neuro: axo3 , nonfocal. Objective Data Current Medications Generic Name Dose Route Start Last Admin Trade Name Freq PRN Reason Stop Dose Admin Acetaminophen 650 mg 10/07/20 22:40 Acetaminophen Supp 650 Mg Supp.Rect RI Q6H PRN Pain, Mild (Pain Scale 1-3) Albuterol Sulfate 2 puff 10/07/20 22:43 Albuterol Sulfate 90 Mcg 8 Gm Inhaler INHALE RQ4H PRN Shortness of Breath Azithromycin 500 mg 10/09/20 00:00 Azithromycin 500 Mg Tablet PO Q24H [facility] Dexamethasone 6 mg 10/08/20 09:00 10/08/20 09:22 Dexamethasone 6 Mg Tablet PO 6 mg DAILY ANGELLA Administration Dextrose 25 gm 10/07/20 22:43 Dextrose 50 % 25 Gm/50 Ml Vial IVPUSH ONCE PRN hypoglycemia Enoxaparin Sodium 40 mg 10/07/20 23:00 10/08/20 01:45 Enoxaparin Sodium 40 Mg/0.4 Ml Syringe SUBCUT 40 mg Q24H ANGELLA Administration Ceftriaxone Sodium 1 gm/ 50 mls @ 100 mls/hr 10/08/20 22:00 Sodium Chloride IV Q24H [facility] Insulin Human Lispro 0 unit 10/08/20 11:30 10/08/20 09:24 Insulin Lispro 100 Unit/Ml 3 Ml Vial SUBCUT 8 unit QIDACHS [facility] Administration Protocol Sodium Chloride 3 ml 10/08/20 00:00 10/08/20 09:22 0.9 % Sodium Chloride Flush 3 Ml Syringe IVFLUSH 3 ml QSHIFT [facility] Administration Labs CBC & Chem 7: 10/08/20 06:36 10/08/20 06:36 Assessment and Plan (1) COVID-19: Status: Acute Assessment and Plan: 49-year-old male with a past medical history of diabetes presented to the hospital with a chief complaint of shortness of breath. Patient was diagnosed with COVID about 2 weeks ago. Currently noted to be hypoxic CT scan showed multifocal pneumonia. Admitted to the hospital for further management. 1.COVID-19 pneumonia: CT scan showed multifocal pneumonia Continue ceftriaxone /azithromycin. Patient was hypoxic to 85% on room air-supplemental oxygen with goal saturation about 95%. Titrate oxygen requirements as needed. Albuterol MDI, dexamethasone 6 mg daily ID consult pending 2.Positive D-dimer: CTA -negative . 3.Diabetes: unconrteolled hba1c levels , Insulin sliding scale 4.mild hyperkalemia : add kayxelate.
--- NOTE | 2020-10-08 14:50 | MHC.CM.PN ---
Pt is Isolation unit with COVID: information obtained from EMR, care team and with assistance by boat laborer to pt's significant other, Maribell via phone. Maribell states pt is independent with all care needs, drives, has no services and sees Dr. Ernst Barth. She states pt has been progressively getting more ill despite a COVID dx about 2 weeks prior. D/C plan seems to be for a return to home without service needs. Maribell's son may be able to transport pt home but if not, he would require transportation: [place] [facility] [place] [facility] [place] CM to follow for changes in d/c plan
[2020-10-08 16:16] LABS: Glucose, Whole Blood 316 mg/dL (60-115)
--- NOTE | 2020-10-08 16:31 | P.CNID_ITS ---
History of Present Illness Data of Consult Service Date: 10/08/20 Requesting physician: Sourav Puckett Primary Care Provider: Eriberto Carrizales MD HPI Reason for consult: COVID pneumonia He presents to hospital with cough fatigue and shortness of breath He has some sputum production He has no fever or chills He was diagnosed with COVID on 09/25 Review of Systems Neurologic: Reports system reviewed and no additional complaints, except as documented and Reports as per HPI [facility] Past Medical History Medical History Diabetes Family History Family History Father Stroke Mother No problems noted. Sister Diabetes Surgical History Surgical History No pertinent past surgical history Social History Social History Household Members: Spouse Housing: House Do you presently have visiting nurse or other home services: No Alcohol intake: never Smoking Status: Never smoker Use of substances other than those prescribed or required for medical reasons: No Currently Displaying Signs/Symptoms of Drug Intoxication Withdrawal: No Have you been hit, kicked, punched, or otherwise hurt by someone within the past year? If so, by whom?: No Do you feel safe in your current relationship?: Yes Is there a partner from a previous relationship who is making you feel unsafe now?: No Are you made to feel afraid or neglected: No Advance Directives: No Advance Directives Information Provided: Yes Do you have thoughts of harming others: None Do you have a plan to hurt others: No Plan Recently lost weight without trying: No service: No Current occupational status: unemployed Meds Allergies Allergy/AdvReac Type Severity Reaction Status Date / Time No Known Allergies Allergy Verified 10/07/20 19:48 [No Known Allergies*] Physical Exam Vital Signs: Vital Signs: Last Vital Signs Temp 97.5 F 10/08/20 15:46 Pulse 73 10/08/20 15:46 Resp 18 10/08/20 15:46 BP 151/92 H 10/08/20 15:46 Pulse Ox 93 10/08/20 15:46 Body Mass Index 21.4 Const: General: cooperative HENMT: Head: Yes normal to inspection Mouth: Normal oral and palatal mucosa present Resp: Effort & Inspection: normal respiratory effort Cardio: Rate: regular rate Rhythm: regular rhythm GI: Inspection: Yes normal to inspection Skin: General skin exam: no rashes or lesions noted Assessment and Plan (1) COVID-19: Problem details: He has had COVID 09/25 so no active treatment needed Can use Ceftriaxone for possible bacterial pneumonia and po Ceftin for a week on discharge Status: Acute No Remdesivir or steroids Symptomatic care Results Labs CBC & Chem 7: 10/08/20 06:36 10/08/20 06:36 Labs: Short CBC 10/07/20 10/08/20 Range/Units 20:15 06:36 WBC 5.3 3.4 L (4.8-10.8) X10*3/uL Hgb 14.0 14.4 (14.0-18.0) g/dl Hct 41.2 L 42.9 (42-52) % Plt Count 186 D 196 (160-400) X10*3/uL BMP 10/07/20 10/08/20 20:15 06:36 Sodium 138 139 Potassium 4.3 5.3 H D Chloride 100 102 Carbon Dioxide 30 H 24 BUN 16 17 H Creatinine 0.89 0.87 Calcium 8.1 L 8.2 L Liver Function 10/07/20 10/08/20 Range/Units 20:15 06:36 Total Bilirubin 0.8 0.8 (0.0-1.0) mg/dL Direct Bilirubin 0.3 0.3 (0.0-0.5) mg/dL AST 31 D 44 H D (5-37) U/L ALT 25 35 (0-40) U/L Alkaline Phosphatase 63 D 61 (39-117) U/L Albumin 3.1 L D 3.2 L (3.5-5.0) g/dL
[2020-10-08 20:58] LABS: Glucose, Whole Blood 362 mg/dL (60-115)
[2020-10-08] MEDS: cefTRIAXone sodium 1 GM in 0.9 % Sodium Chloride 50 ML IV (21:16)
[2020-10-08] MEDS: Azithromycin 500 MG TABLET PO (23:45)
[2020-10-09 03:48] VITALS: BP 131/87; PULSE 69; RESP 16; TEMP 36.3; O2SAT 95
[2020-10-09 07:24] VITALS: BP 120/75; PULSE 60; RESP 18; TEMP 36.4; O2SAT 92
[2020-10-09 07:47] LABS: Glucose, Whole Blood 388 mg/dL (60-115)
[2020-10-09 08:14] LABS: Glucose, Whole Blood 338 mg/dL (60-115)
[2020-10-09] MEDS: Insulin Lispro 100 UNIT/ML 3 ML VIAL SUBCUT ×7 (09:00→20:57)
[2020-10-09] MEDS: Insulin Glargine,Hum.rec.anlog 100 UNIT/ML 10 ML VIAL 8 UNIT SUBCUT (09:27)
[2020-10-09] MEDS: dexAMETHasone 6 MG TABLET PO (09:27)
[2020-10-09] MEDS: 0.9 % Sodium Chloride Flush 3 ML SYRINGE IVFLUSH ×3 (09:28→20:57)
--- NOTE | 2020-10-09 11:35 | P.PNIM_ITS ---
Subjective Subjective Date of Service: 10/09/20 Interval History: covid pneumonia Review of Systems still sob , denies any chest pain or abd pain. Physical Exam Vital Signs: Vital Signs: Last Vital Signs Temp 97.6 F 10/09/20 07:24 Pulse 60 10/09/20 07:24 Resp 18 10/09/20 07:24 BP 120/75 10/09/20 07:24 Pulse Ox 92 10/09/20 07:24 Body Mass Index 21.4 physical exam: constitutional: not in acute distress. Cvs: rrr, [id number] , no murmur res: Fair air entry, her rales or wheezing. abd: no rebound or guarding ,nt, bs present. ext pulses present , no cyanosis neuro: axo3 , nonfocal. Objective Data Current Medications Generic Name Dose Route Start Last Admin Trade Name Freq PRN Reason Stop Dose Admin Acetaminophen 650 mg 10/07/20 22:40 Acetaminophen Supp 650 Mg Supp.Rect IA Q6H PRN Pain, Mild (Pain Scale 1-3) Albuterol Sulfate 2 puff 10/07/20 22:43 Albuterol Sulfate 90 Mcg 8 Gm Inhaler INHALE RQ4H PRN Shortness of Breath Azithromycin 500 mg 10/09/20 00:00 10/08/20 23:45 Azithromycin 500 Mg Tablet PO 500 mg Q24H ANGELLA Administration Dexamethasone 6 mg 10/08/20 09:00 10/09/20 09:27 Dexamethasone 6 Mg Tablet PO 6 mg DAILY ANGELLA Administration Dextrose 25 gm 10/07/20 22:43 Dextrose 50 % 25 Gm/50 Ml Vial IVPUSH ONCE PRN hypoglycemia Enoxaparin Sodium 40 mg 10/07/20 23:00 10/08/20 23:45 Enoxaparin Sodium 40 Mg/0.4 Ml Syringe SUBCUT 40 mg Q24H ANGELLA Administration Ceftriaxone Sodium 1 gm/ 50 mls @ 100 mls/hr 10/08/20 22:00 10/08/20 23:09 Sodium Chloride IV Infused Q24H ANGELLA Infusion Insulin Glargine 8 unit 10/09/20 09:00 10/09/20 09:27 Insulin Glargine,Hum.Rec.Anlog 100 Unit/Ml 10 Ml Vial SUBCUT 8 unit DAILY ANGELLA Administration Insulin Human Lispro 0 unit 10/08/20 11:30 12/30/20 09:27 Insulin Lispro 100 Unit/Ml 3 Ml Vial SUBCUT 10 unit QIDAS [facility] Administration Protocol Insulin Human Lispro 4 unit 10/09/20 11:30 10/09/20 09:27 Insulin Lispro 100 Unit/Ml 3 Ml Vial SUBCUT 1 unit QIDAS [facility] Administration Sodium Chloride 3 ml 10/08/20 00:00 10/09/20 09:28 0.9 % Sodium Chloride Flush 3 Ml Syringe IVFLUSH 3 ml QSHIFT [facility] Administration Labs CBC & Chem 7: 10/08/20 06:36 10/08/20 06:36 Microbiology Microbiology Results: Microbiology 10/07/20 22:28 Blood - Venous Blood Culture - Preliminary No growth after 24 hours. 10/07/20 22:28 Blood - Venous Blood Culture - Preliminary No growth after 24 hours. Assessment and Plan (1) COVID-19: Status: Acute Assessment and Plan: 49-year-old male with a past medical history of diabetes presented to the hospital with a chief complaint of shortness of breath. Patient was diagnosed with COVID about 2 weeks ago. Currently noted to be hypoxic CT scan showed multifocal pneumonia. Admitted to the hospital for further management. 1.COVID-19 pneumonia: CT scan showed multifocal pneumonia Continue ceftriaxone /azithromycin. Patient was hypoxic to 85% on room air-supplemental oxygen with goal saturation about 95%. Titrate oxygen requirements as needed. Albuterol MDI, dexamethasone 6 mg daily ID consult pending 2.Positive D-dimer: CTA -negative . 3.Diabetes: unconrteolled 200-300's range hba1c -11.5 lantus added , insulin added with meals. Insulin sliding scale 4.mild hyperkalemia : add kayxelate.bmp pending
[2020-10-09 12:00] VITALS: BP 128/74; PULSE 72; RESP 18; TEMP 36.7; O2SAT 91
[2020-10-09 12:12] LABS: Glucose, Whole Blood 396 mg/dL (60-115)
[2020-10-09 14:03] LABS: Anion Gap 10 (12-20); Blood Urea Nitrogen 24 mg/dL (9-16); Calcium 8.1 mg/dL (8.4-10.2); Carbon Dioxide 32 mmol/L (22-29); Chloride 99 mmol/L (96-108); Creatinine Clr Calc Pharmacy 91.9; Estimated Glomerular Filt Rate > 60; Glucose Random 339 mg/dL (60-115); Potassium 4.6 mmol/l (3.3-5.1); Sodium 136 mmol/L (135-145)
[2020-10-09 15:39] VITALS: BP 118/72; PULSE 66; RESP 20; TEMP 36.6; O2SAT 95
[2020-10-09 16:37] LABS: Glucose, Whole Blood 276 mg/dL (60-115)
[2020-10-09] MEDS: Insulin Glargine,Hum.rec.anlog 100 UNIT/ML 10 ML VIAL SUBCUT (17:41)
[2020-10-09 20:00] VITALS: BP 115/72; PULSE 73; RESP 21; TEMP 36.9; O2SAT 94
[2020-10-09] MEDS: Potassium Chloride Packet 20 MEQ PACKET PO (20:56)
[2020-10-09] MEDS: cefTRIAXone sodium 1 GM in 0.9 % Sodium Chloride 50 ML IV (20:56)
[2020-10-09 20:57] LABS: Glucose, Whole Blood 289 mg/dL (60-115)
[2020-10-09] MEDS: Azithromycin 500 MG TABLET PO (23:44)
[2020-10-09] MEDS: Enoxaparin Sodium 40 MG/0.4 ML SYRINGE SUBCUT (23:44)
[2020-10-10] VITALS (7 sets, daily range): BP systolic 115–133; BP diastolic 63–78; PULSE 56–78; RESP 16–20; TEMP 36.4–36.8; O2SAT 93–96
[2020-10-10 07:12] LABS: Anion Gap 11 (12-20); Blood Urea Nitrogen 20 mg/dL (9-16); Calcium 8.2 mg/dL (8.4-10.2); Carbon Dioxide 30 mmol/L (22-29); Chloride 100 mmol/L (96-108); Creatinine Clr Calc Pharmacy 99.8; Estimated Glomerular Filt Rate > 60; Glucose Random 257 mg/dL (60-115); Potassium 4.5 mmol/l (3.3-5.1); Sodium 136 mmol/L (135-145)
[2020-10-10 07:55] LABS: Glucose, Whole Blood 240 mg/dL (60-115)
[2020-10-10] MEDS: Insulin Lispro 100 UNIT/ML 3 ML VIAL SUBCUT ×6 (08:46→20:33)
[2020-10-10] MEDS: Insulin Glargine,Hum.rec.anlog 100 UNIT/ML 10 ML VIAL 13 UNIT SUBCUT (08:46)
[2020-10-10] MEDS: dexAMETHasone 6 MG TABLET PO (08:46)
[2020-10-10] MEDS: 0.9 % Sodium Chloride Flush 3 ML SYRINGE IVFLUSH ×3 (08:47→20:34)
[2020-10-10 11:13] LABS: Glucose, Whole Blood 329 mg/dL (60-115)
--- NOTE | 2020-10-10 11:19 | HO.PM.IMPN ---
Subjective Subjective Date of Service: 10/10/20 Interval History: COVID pneumonia. Review of Systems Pain still shortness of breath meds slowly improving, has some cough and sputum. Denies any chest pain. Physical Exam Vital Signs: Vital Signs: Last Vital Signs Temp 97.5 F 10/10/20 08:00 Pulse 56 10/10/20 08:00 Resp 20 10/10/20 08:00 BP 133/77 10/10/20 08:00 Pulse Ox 93 10/10/20 10:18 Body Mass Index 21.4 Physical exam: Constitutional: Not in acute distress. Cvs: rrr, [id number] , no murmur res: Fair entry, no rales or wheezing abd: no rebound or guarding ,nt, bs present. ext pulses present , no cyanosis neuro: axo3 , nonfocal. Objective Data Current Medications Generic Name Dose Route Start Last Admin Trade Name Freq PRN Reason Stop Dose Admin Acetaminophen 650 mg 10/07/20 22:40 Acetaminophen Supp 650 Mg Supp.Rect OR Q6H PRN Pain, Mild (Pain Scale 1-3) Albuterol Sulfate 2 puff 10/07/20 22:43 Albuterol Sulfate 90 Mcg 8 Gm Inhaler INHALE RQ4H PRN Shortness of Breath Azithromycin 500 mg 10/09/20 00:00 10/09/20 23:44 Azithromycin 500 Mg Tablet PO 500 mg Q24H ANGELLA Administration Dexamethasone 6 mg 10/08/20 09:00 10/10/20 08:46 Dexamethasone 6 Mg Tablet PO 6 mg DAILY ANGELLA Administration Dextrose 25 gm 10/07/20 22:43 Dextrose 50 % 25 Gm/50 Ml Vial IVPUSH ONCE PRN hypoglycemia Enoxaparin Sodium 40 mg 10/07/20 23:00 10/09/20 23:44 Enoxaparin Sodium 40 Mg/0.4 Ml Syringe SUBCUT 40 mg Q24H ANGELLA Administration Ceftriaxone Sodium 1 gm/ 50 mls @ 100 mls/hr 10/08/20 22:00 10/09/20 21:37 Sodium Chloride IV Infused Q24H ANGELLA Infusion Insulin Glargine 13 unit 10/10/20 09:00 10/10/20 08:46 Insulin Glargine,Hum.Rec.Anlog 100 Unit/Ml 10 Ml Vial SUBCUT 13 unit DAILY ANGELLA Administration Insulin Human Lispro 0 unit 10/08/20 11:30 10/10/20 08:46 Insulin Lispro 100 Unit/Ml 3 Ml Vial SUBCUT 4 unit QIDACHS [facility] Administration Protocol Sodium Chloride 3 ml 10/08/20 00:00 10/10/20 08:47 0.9 % Sodium Chloride Flush 3 Ml Syringe IVFLUSH 3 ml QSHIFT [facility] Administration Labs CBC & Chem 7: 10/08/20 06:36 10/10/20 06:13 Microbiology Microbiology Results: Microbiology 10/07/20 22:28 Blood - Venous Blood Culture - Preliminary No growth after 48 hours. 10/07/20 22:28 Blood - Venous Blood Culture - Preliminary No growth after 48 hours. Assessment and Plan (1) COVID-19: Status: Acute Assessment and Plan: 49-year-old male with a past medical history of diabetes presented to the hospital with a chief complaint of shortness of breath. Patient was diagnosed with COVID about 2 weeks ago. Currently noted to be hypoxic CT scan showed multifocal pneumonia. Admitted to the hospital for further management. 1.COVID-19 pneumonia: CT scan showed multifocal pneumonia Albuterol MDi ID consult followin-Continue ceftriaxone day3, Titrate oxygen requirements as needed. 2.Positive D-dimer: CTA -negative . 3.Diabetes: unconrteolled 200-300's range hba1c -11.5 lantus added , insulin added with meals. Insulin sliding scale 4.mild hyperkalemia : add kayxelate.bmp pending
[2020-10-10 15:53] LABS: Glucose, Whole Blood 372 mg/dL (60-115)
--- NOTE | 2020-10-10 18:23 | PC.NURSE ---
Pt German speaking but able to make needs known. Pt steady when out of bed, stands to use urinal. Pt POCs were high throughout day, , pharmacy and this RN attempting to find out how much insulin he uses at home and if he uses another pharmacy. Online Marketing Director given extension for room to call to find out since pt is on airborne precautions. Pt said someone did call, attempted to call interpreter translator to see what pt said, no answer. Will reattempt to call. Pt has no c/o pain, sob, n/v. Repo's self in bed.
[2020-10-10 20:30] LABS: Glucose, Whole Blood 325 mg/dL (60-115)
[2020-10-10] MEDS: cefTRIAXone sodium 1 GM in 0.9 % Sodium Chloride 50 ML IV (20:34)
[2020-10-10] MEDS: Enoxaparin Sodium 40 MG/0.4 ML SYRINGE SUBCUT (23:26)
[2020-10-11] VITALS (7 sets, daily range): BP systolic 102–128; BP diastolic 52–80; PULSE 64–93; RESP 12–17; TEMP 36.3–37; O2SAT 90–94; BMI 21.4
[2020-10-11 07:55] LABS: Glucose, Whole Blood 229 mg/dL (60-115)
[2020-10-11] MEDS: Insulin Glargine,Hum.rec.anlog 100 UNIT/ML 10 ML VIAL 15 UNIT SUBCUT (08:52)
[2020-10-11] MEDS: 0.9 % Sodium Chloride Flush 3 ML SYRINGE IVFLUSH ×2 (08:53→16:52)
[2020-10-11] MEDS: dexAMETHasone 6 MG TABLET PO (08:53)
[2020-10-11] MEDS: Insulin Lispro 100 UNIT/ML 3 ML VIAL SUBCUT ×9 (08:53→21:35)
--- NOTE | 2020-10-11 10:25 | MHC.CM.PN ---
dc plan is home no svcs. transportation by family member, if not then by C courtesy bee Patel cm to cont. to follow.
[2020-10-11 11:27] LABS: Glucose, Whole Blood 351 mg/dL (60-115)
[2020-10-11] MEDS: Insulin Glargine,Hum.rec.anlog 100 UNIT/ML 10 ML VIAL SUBCUT (12:10)
[2020-10-11 12:55] LABS: Glucose, Whole Blood 341 mg/dL (60-115)
--- NOTE | 2020-10-11 13:35 | PC.NURSE ---
Addendum entered by Gia Petty RN 10/11/20 15:39: spoke with pt over phone with per diem interpreter this am with questions regarding his home medications. pt states he takes metformin twice a day, basaglar insulin pen, and checks his blood sugar levels with his glucometer inconsistently. pt educated on need to check blood sugar levels 4 times a day before meals. pt expressed understanding of this and states he has all the supplies needed at home to check his blood sugar levels. denies any pain, headache or dizziness. 90% on RA, LS dim at bases. able to ambulate without difficulty throughout room. Addendum entered by Gia Petty RN 10/11/20 15:35: repeat blood sugar taken ~1500 was 328. made aware. states we are holding decadron in the morning. pt remains asymptomatic. Original Note: blood sugar prior to lunch was 351. pt displaying no s/s of hyperglycemia. md notified. 2 units humalog and 5 units of lantus give in addition to 10 units humalog indicated per sliding scale. repeat blood sugar check 341. aware, states to continue to monitor pt and recheck blood sugar within a few hours.
[2020-10-11 15:15] LABS: Glucose, Whole Blood 328 mg/dL (60-115)
--- NOTE | 2020-10-11 15:24 | HO.PM.IMPN ---
Subjective Subjective Date of Service: 10/12/20 Interval History: Uncontrolled diabetes, pneumonia. Review of Systems Patient shortness of breath is improving, still sugars are in 300-400 range Physical Exam Vital Signs: Vital Signs: Last Vital Signs Temp 97.9 F 10/11/20 12:19 Pulse 93 10/11/20 12:19 Resp 16 10/11/20 12:19 BP 111/69 10/11/20 12:19 Pulse Ox 90 L 10/11/20 12:19 Body Mass Index 21.4 Physical exam: Constitutional: Not in acute distress. Cvs: rrr, [id number] , no murmur res: Fair entry, no rales or wheezing abd: no rebound or guarding ,nt, bs present. ext pulses present , no cyanosis neuro: axo3 , nonfocal. Objective Data Current Medications Generic Name Dose Route Start Last Admin Trade Name Freq PRN Reason Stop Dose Admin Acetaminophen 650 mg 10/07/20 22:40 Acetaminophen Supp 650 Mg Supp.Rect AR Q6H PRN Pain, Mild (Pain Scale 1-3) Albuterol Sulfate 2 puff 10/07/20 22:43 Albuterol Sulfate 90 Mcg 8 Gm Inhaler INHALE RQ4H PRN Shortness of Breath Dexamethasone 6 mg 10/08/20 09:00 10/11/20 08:53 Dexamethasone 6 Mg Tablet PO 6 mg DAILY ANGELLA Administration Dextrose 25 gm 10/07/20 22:43 Dextrose 50 % 25 Gm/50 Ml Vial IVPUSH ONCE PRN hypoglycemia Enoxaparin Sodium 40 mg 10/07/20 23:00 10/10/20 23:26 Enoxaparin Sodium 40 Mg/0.4 Ml Syringe SUBCUT 40 mg Q24H ANGELLA Administration Ceftriaxone Sodium 1 gm/ 50 mls @ 100 mls/hr 10/08/20 22:00 10/10/20 21:32 Sodium Chloride IV Infused Q24H ANGELLA Infusion Insulin Glargine 20 unit 10/12/20 09:00 Insulin Glargine,Hum.Rec.Anlog 100 Unit/Ml 10 Ml Vial SUBCUT DAILY [facility] Insulin Human Lispro 0 unit 10/08/20 11:30 10/11/20 12:09 Insulin Lispro 100 Unit/Ml 3 Ml Vial SUBCUT 10 unit QIDACHS ANGELLA Administration Protocol Insulin Human Lispro 5 unit 10/11/20 16:30 Insulin Lispro 100 Unit/Ml 3 Ml Vial SUBCUT QIDACHS [facility] Sodium Chloride 3 ml 10/08/20 00:00 10/11/20 08:53 0.9 % Sodium Chloride Flush 3 Ml Syringe IVFLUSH 3 ml QSHIFT [facility] Administration Labs CBC & Chem 7: 10/08/20 06:36 10/10/20 06:13 Microbiology Microbiology Results: Microbiology 10/07/20 22:28 Blood - Venous Blood Culture - Preliminary No growth after 48 hours. 10/07/20 22:28 Blood - Venous Blood Culture - Preliminary No growth after 48 hours. Assessment and Plan (1) COVID-19: Status: Acute Assessment and Plan: 49-year-old male with a past medical history of diabetes presented to the hospital with a chief complaint of shortness of breath. Patient was diagnosed with COVID about 2 weeks ago. Currently noted to be hypoxic CT scan showed multifocal pneumonia. Admitted to the hospital for further management. 1.COVID-19 pneumonia: CT scan showed multifocal pneumonia Albuterol MDi ID consult followin-Continue ceftriaxone day3, Titrate oxygen requirements as needed. 2.Positive D-dimer: CTA -negative . 3.Diabetes: unconrteolled 300's range hba1c -11.5 lantus adjusted to 20 units , insulin added with meals, added metformin. Insulin sliding scale 4.mild hyperkalemia : add [email or web address].bmp pending
[2020-10-11 16:51] LABS: Glucose, Whole Blood 322 mg/dL (60-115)
[2020-10-11] MEDS: metFORMIN HCl 1,000 MG TABLET 1000 MG PO (17:00)
[2020-10-11] MEDS: cefTRIAXone sodium 1 GM in 0.9 % Sodium Chloride 50 ML IV (21:23)
[2020-10-11 21:33] LABS: Glucose, Whole Blood 190 mg/dL (60-115)
[2020-10-11] MEDS: Enoxaparin Sodium 40 MG/0.4 ML SYRINGE SUBCUT (21:34)
[2020-10-12] VITALS: BP 132/79; PULSE 70; RESP 18; TEMP 36.6; O2SAT 93
[2020-10-12] MEDS: 0.9 % Sodium Chloride Flush 3 ML SYRINGE IVFLUSH ×2 (00:19→08:18)
[2020-10-12 04:00] VITALS: BP 129/83; PULSE 68; RESP 14; TEMP 36.8; O2SAT 92
[2020-10-12 04:23] LABS: Glucose, Whole Blood 135 mg/dL (60-115)
[2020-10-12 08:00] VITALS: BP 114/60; PULSE 73; RESP 20; TEMP 36.3; O2SAT 91
[2020-10-12 08:15] LABS: Glucose, Whole Blood 200 mg/dL (60-115)
[2020-10-12] MEDS: Insulin Lispro 100 UNIT/ML 3 ML VIAL SUBCUT ×4 (08:18→12:14)
[2020-10-12] MEDS: Insulin Glargine,Hum.rec.anlog 100 UNIT/ML 10 ML VIAL 15 UNIT SUBCUT (08:18)
[2020-10-12] MEDS: metFORMIN HCl 1,000 MG TABLET 1000 MG PO (08:18)
--- NOTE | 2020-10-12 11:27 | MHC.CM.PN ---
Patient is being discharged home today with services from [facility]. Family will provide transport. MD and nurse updated
[2020-10-12 12:00] VITALS: BP 118/72; PULSE 80; RESP 16; TEMP 36.4; O2SAT 92
--- NOTE | 2020-10-12 12:23 | P.DS_ITS ---
DS: Providers Provider Date of admission: 10/07/20 22:40 Primary care physician: Eriberto Carrizales MD Consults: 10/07/20 22:58 Consult to Infectious Diseases Routine Consulting Provider: Callie Juarez Reason for consultation: covid pna Has provider been notified: No DS: Diagnosis Discharge Diagnosis (1) COVID-19: Status: Acute DS: Medications Discharge Medications Home Medications: Previous Rx's Medication Instructions Recorded ondansetron HCl [Zofran] 4 mg PO Q8H PRN #10 tab 10/02/20 atorvastatin 40 mg PO DAILY #30 cap 10/11/20 cefuroxime axetil 500 mg PO BID #10 tab 10/11/20 metformin 1,000 mg PO BID #30 cap 10/11/20 insulin glargine [Basaglar KwikPen 15 unit SUBCUT QAM #3 ml 10/12/20 U-100 Insulin] DS: Summary Hospital Course Hospital Course: 49Y male with a past medical history of diabetes, recent diagnosis of COVID about 2 weeks ago presented to the hospital with complaint of shortness of breath. Patient mentioned that over the past few days he has been having increased shortness of breath and cough with associated chest discomfort. Denies any fever chills. Denies any headaches numbness tingling. Denies any GI or symptoms. Review of all other systems is negative except mentioned above ER course: Per ER team patient appears to be in no acute distress. Patient was saturating at 85% on room air. Placed on 4L supplemental oxygen with improvement in oxygen to 93%. Patient was given dexamethasone and antibiotics for multifocal pneumonia noted on the CT scan. No evidence of PE. Hospital Course problem gaines section: COVID pneumonia gaines patient was initially started on antibiotic and steroids: Subsequently seen by infectious disease and recommended to switch the patient on Ceftin. He has had COVID 09/25 -seen by inefectious diseases: no need for further steriods since has covid since 09/25. patient is off oxygen and saturating well. Diabetes: On uncontrolled -probably noncompliance and steroid use might have contributed. hyperglycemia improving after off steriods. continue Lantus to 15 units and continue metformin patient does not take Trulicity anymore. Further management outpatient with PCP. As per the patient patient has diabetic supplies at home. will arrange vna for home. Above management discussed with the patient in detail length he understand and in agreement with the above plan, time spent 50 minutes and 50% time spent on counseling. Significant findings: As above. Procedures performed: None. Treatment and response: As above. Complications: None. Time Spent with Patient Time attestation: Total time spent providing and/or coordinating discharge services: Physical Exam Vital Signs: Vital Signs: Last Vital Signs Temp 97.3 F 10/12/20 08:00 Pulse 73 10/12/20 08:00 Resp 20 10/12/20 08:00 BP 114/60 10/12/20 08:00 Pulse Ox 91 L 10/12/20 08:00 Body Mass Index 21.4 Constitutional: Not in acute distress. Cvs: rrr, [id number] , no murmur res: Fair entry, no rales or wheezing abd: no rebound or guarding ,nt, bs present. ext pulses present , no cyanosis neuro: axo3 , nonfocal. DS: Data Data Completed and Pending Labs on day of discharge: 10/07/20 19:47 ECG 12 lead EKG Stat 0.9 % Sodium Chloride [Ns] 1,000 ml IV 999 mls/hr 10/07/20 19:48 EKG Documentation DIRECTED EKG Documentation DIRECTED 10/07/20 20:04 Glucose, Whole Blood Routine 10/07/20 20:15 B Type Natriuretic Peptide Stat Complete Blood Count Auto Diff Stat Comprehensive Met. Panel Stat D Dimer Stat Ferritin Stat Lactate Dehydrogenase Stat Liver Panel Stat Partial Thromboplastin Time Stat Procalcitonin Stat Prothrombin Time INR Stat SLIDE REVIEW Stat Troponin-I High Sensitivity Stat 10/07/20 20:58 CT angio chest PE protocol Stat 10/07/20 21:13 dexAMETHasone sod phosphate [Decadron] 6 mg IVPUSH ONCE ONE 10/07/20 22:07 iohexoL 350 MG/ML [Omnipaque 350 MG/ML] 65 ml IV ONCE ONE 10/07/20 22:28 Lactic Acid Stat 10/07/20 22:40 Intake and Output QSHIFTE 10/07/20 22:41 Azithromycin [Zithromax] 500 mg 0.9 % Sodium Chloride [Ns] 250 ml IV ONCE cefTRIAXone sodium [Rocephin] 1 gm 0.9 % Sodium Chloride [Ns] 50 ml IV ONCE Transfer Order Routine 10/07/20 23:05 cefTRIAXone sodium [Rocephin] 1 gm .ROUTE .[facility]-MED ONE 10/07/20 23:35 Azithromycin [Zithromax] 500 mg IV .[facility]-MED ONE 10/07/20 23:56 Troponin-I High Sensitivity Stat 10/08/20 06:36 Basic Metabolic Panel DAILY@0600 Complete Blood Count Auto Diff DAILY@0600 Hemoglobin A1c Routine Liver Panel Routine SLIDE REVIEW Routine 10/08/20 07:30 Insulin Lispro [Humalog] See Protocol SUBCUT QIDACHS 10/08/20 08:55 Glucose, blood poc QIDACHS 10/08/20 08:57 Sodium Polystyrene Sulfon/Sorb [Kayexalate] 15 gm PO ONCE ONE 10/08/20 09:00 dexAMETHasone [Decadron] 6 mg PO DAILY 10/08/20 09:12 Glucose, Whole Blood Routine Glucose, Whole Blood Routine 10/08/20 11:30 Insulin Lispro [Humalog] See Protocol SUBCUT QIDACHS 10/08/20 11:51 Glucose, Whole Blood Routine 10/08/20 13:02 Add Laboratory Test Urgent 10/08/20 16:11 Glucose, Whole Blood Routine 10/08/20 20:54 Glucose, Whole Blood Routine 10/08/20 21:13 cefTRIAXone sodium [Rocephin] 1 gm .ROUTE .[facility] ONE 10/08/20 22:00 cefTRIAXone sodium [Rocephin] 1 gm 0.9 % Sodium Chloride [Ns] 50 ml IV Q24H 10/09/20 00:00 Azithromycin [Zithromax] 500 mg PO Q24H 10/09/20 07:23 Glucose, Whole Blood Routine 10/09/20 09:00 Insulin Glargine,Hum.rec.anlog [Lantus] 8 unit SUBCUT DAILY 10/09/20 11:30 Insulin Lispro [Humalog] 4 unit SUBCUT QIDACHS 10/09/20 12:01 Glucose, Whole Blood Routine 10/09/20 13:29 Basic Metabolic Panel Urgent 10/09/20 16:32 Insulin Glargine,Hum.rec.anlog [Lantus] 5 unit SUBCUT ONCE ONE 10/09/20 16:33 Glucose, Whole Blood Routine 10/09/20 17:39 Potassium Chloride Packet [Klor-Con Packet] 20 meq PO ONCE ONE 10/09/20 20:50 Glucose, Whole Blood Routine 10/09/20 20:53 cefTRIAXone sodium [Rocephin] 1 gm .ROUTE .[facility] ONE 10/10/20 06:13 Basic Metabolic Panel DAILY@0600 10/10/20 07:50 Glucose, Whole Blood Routine 10/10/20 09:00 Insulin Glargine,Hum.rec.anlog [Lantus] 13 unit SUBCUT DAILY 10/10/20 11:08 Glucose, Whole Blood Routine 10/10/20 15:48 Glucose, Whole Blood Routine 10/10/20 16:30 Insulin Lispro [Humalog] 3 unit SUBCUT QIDACHS 10/10/20 20:27 Glucose, Whole Blood Routine 10/10/20 20:31 cefTRIAXone sodium [Rocephin] 1 gm .ROUTE .[facility] ONE 10/11/20 07:48 Glucose, Whole Blood Routine 10/11/20 09:00 Insulin Glargine,Hum.rec.anlog [Lantus] 15 unit SUBCUT DAILY 10/11/20 11:22 Glucose, Whole Blood Routine 10/11/20 11:44 Insulin Glargine,Hum.rec.anlog [Lantus] 5 unit SUBCUT ONCE ONE Insulin Lispro [Humalog] 2 unit SUBCUT ONCE ONE 10/11/20 12:52 Glucose, Whole Blood Routine 10/11/20 15:12 Glucose, Whole Blood Routine 10/11/20 16:48 Glucose, Whole Blood Routine 10/11/20 21:20 cefTRIAXone sodium [Rocephin] 1 gm .ROUTE .[facility] ONE 10/11/20 21:28 Glucose, Whole Blood Routine 10/12/20 04:18 Glucose, Whole Blood Routine 10/12/20 08:12 Glucose, Whole Blood Routine 10/12/20 09:00 Insulin Glargine,Hum.rec.anlog [Lantus] 20 unit SUBCUT DAILY 10/12/20 10:47 cefUROXime axetiL [Ceftin] 500 mg PO ONCE ONE Laboratory Last Values WBC 3.4 X10*3/uL (4.8-10.8) L 10/08/20 06:36 RBC 4.90 X10*6/uL (4.60-5.80) 10/08/20 06:36 Hgb 14.4 g/dl (14.0-18.0) 10/08/20 06:36 Hct 42.9 % (42-52) 10/08/20 06:36 MCV 87.6 fL (80-98) 10/08/20 06:36 MCH 29.4 pg (27.0-33.0) 10/08/20 06:36 MCHC 33.6 g/dl (31.0-36.0) 10/08/20 06:36 RDW 11.2 % (11.0-16.0) 10/08/20 06:36 Plt Count 196 X10*3/uL (160-400) 10/08/20 06:36 MPV 12.0 fL (9.4-12.4) 10/08/20 06:36 Immature Gran % (Auto) 0.6 % (0.0-0.4) H 10/08/20 06:36 Neut % (Auto) 78.2 % (45-73) H 10/08/20 06:36 Lymph % (Auto) 18.0 % (20-40) L 10/08/20 06:36 [place] % (Auto) 3.2 % (2-11) 10/08/20 06:36 Eos % (Auto) 0.0 % (0-4) 10/08/20 06:36 Baso % (Auto) 0.0 % (0-2) 10/08/20 06:36 Lymph # (Auto) 0.6 X10*3/uL (1.2-4.9) L 10/08/20 06:36 [place] # (Auto) 0.1 X10*3/uL (0.1-1.2) 10/08/20 06:36 Eos # (Auto) 0.0 X10*3/uL (0.0-0.4) 10/08/20 06:36 Baso # (Auto) 0.0 X10*3/uL (0.0-0.2) 10/08/20 06:36 Abs Immat Gran (auto) 0.02 X10*3/uL (0.00-0.03) 10/08/20 06:36 Absolute Neuts (auto) 2.7 X10*3/uL (2.0-8.3) 10/08/20 06:36 Absolute Nucleated RBC 0.000 X10*3/uL (0.0-0.012) 10/08/20 06:36 Nucleated RBC % (auto) 0.0 /100WBC (0.0-0.2) 10/08/20 06:36 Smear Tech's Comments VERIFIED 10/08/20 06:36 PT 11.7 SEC (10.8-13.0) 10/07/20 20:15 INR 1.0 (0.9-1.1) 10/07/20 20:15 APTT 28.7 SEC (24.1-38.0) 10/07/20 20:15 D-Dimer 432 NG/ML 10/07/20 20:15 Sodium 136 mmol/L (135-145) 10/10/20 06:13 Potassium 4.5 mmol/l (3.3-5.1) 10/10/20 06:13 Chloride 100 mmol/L (96-108) 10/10/20 06:13 Carbon Dioxide 30 mmol/L (22-29) H 10/10/20 06:13 Anion Gap 11 (12-20) L 10/10/20 06:13 BUN 20 mg/dL (9-16) H 10/10/20 06:13 Creatinine 0.81 mg/dL (0.5-1.4) 10/10/20 06:13 Estim Creat Clear Calc 99.8 10/10/20 06:13 Estimated GFR > 60 10/10/20 06:13 POC Glucose 200 mg/dL (60-115) H 10/12/20 08:12 Random Glucose 257 mg/dL (60-115) H 10/10/20 06:13 Estimat Average Glucose 283 mg/dL 10/08/20 06:36 Hemoglobin A1c % 11.5 % 10/08/20 06:36 Lactic Acid 1.2 mmol/L (0.5-2.0) 10/07/20 22:28 Calcium 8.2 mg/dL (8.4-10.2) L 10/10/20 06:13 Ferritin 1032 ng/mL (20-250) H 10/07/20 20:15 Total Bilirubin 0.8 mg/dL (0.0-1.0) 10/08/20 06:36 Direct Bilirubin 0.3 mg/dL (0.0-0.5) 10/08/20 06:36 AST 44 U/L (5-37) H D 10/08/20 06:36 ALT 35 U/L (0-40) 10/08/20 06:36 Alkaline Phosphatase 61 U/L (39-117) 10/08/20 06:36 Lactate Dehydrogenase 233 U/L (118-273) 10/07/20 20:15 Troponin I High Sens < 3.5 ng/L (<3.5-35.0) 10/07/20 23:56 B-Natriuretic Peptide 53 pg/mL (<100) 10/07/20 20:15 Total Protein 6.0 g/dL (6.5-8.0) L 10/08/20 06:36 Albumin 3.2 g/dL (3.5-5.0) L 10/08/20 06:36 Procalcitonin 0.13 ng/mL 10/07/20 20:15 Preliminary micro results at discharge 10/07/20 22:28 Blood Culture - Preliminary Blood - Venous No growth after 48 hours. 10/07/20 22:28 Blood Culture - Preliminary Blood - Venous No growth after 48 hours. Discharge Plan Discharge Patient Disposition: Home Health Service Referrals: [facility] [Outside] Po,Eriberto Betancourt MD [Primary Care Provider] - Kylee Louis MD [Physician] - (Follow up in 1 week) Discharge Medications: New cefuroxime axetil 500 mg tablet 500 mg PO BID Qty: 10 RF: 0 Basaglar KwikPen U-100 Insulin 100 unit/mL (3 mL) insulin pen 15 unit subcut QAM Qty: 3 RF: 0 Continued atorvastatin 40 mg PO DAILY Qty: 30 RF: 0 metformin 1,000 mg PO BID Qty: 30 RF: 0 ondansetron HCl [Zofran] 4 mg tablet 4 mg PO Q8H PRN (Reason: nausea and vomiting) Qty: 10 RF: 0 Discontinued Basaglar KwikPen U-100 Insulin 100 unit/mL (3 mL) Insulin Pen 15 unit SUBCUT QAM RF: 0 Trulicity pen injector subcut RF: 0 Discharge Orders: Discharge Order (Routine); Ordered 10/12/20 Ordered By: Sourav Puckett Diet: advance to usual diet and diabetic diet Activity on Discharge: As tolerated Other Ambulatory Orders: Hemoglobin A1c (Routine) Timeframe: 1 Week Facility: [facility] - Location: Laboratory Ordered By: Sourav Puckett Visit Report Forms: Patient Portal Discharge page Care Plan Goals: COVID pneumonia gaines patient was initially started on antibiotic and steroids: Subsequently seen by infectious disease and recommended to switch the patient on Ceftin. He has had COVID 09/25 -seen by inefectious diseases: no need for further steriods since has covid since 09/25. patient is off oxygen and saturating well. Diabetes: On uncontrolled -probably noncompliance and steroid use might have contributed. Will adjusted Lantus to 15 units and continue metformin patient does not take Trulicity anymore. Further management outpatient with PCP. As per the patient patient has diabetic supplies at home. will arrange vna for home. Health Concerns: As above. Plan of Treatment: As above.
--- NOTE | 2020-10-12 13:07 | PC.NURSE ---
discharge assessment discussed with pt through medical director of hospice over the phone. re-educated on importance of checking blood sugar before each meal and before bedtime. confirmed with pt that he has all the necessary supplies to check his blood sugar, he vocalized that he does. awaiting family to pick pt up.
[2020-10-14 07:41] LABS: Glucose, Whole Blood 235 mg/dL (60-115)
== END 2020-10-12 03:00 | disposition home health service (06) | DRG 137 ==
LOC: HO.ED 20:49 → HO.ISO 10-08 00:08
PROVIDERS: Physician Assistant; Admitting Provider Hospitalist; Emergency Provider Emergency Medicine; PCP Internal Medicine; Visit Provider Internal Medicine
DX: U07.1 COVID-19 (principal); J12.89 Other viral pneumonia; E87.5 Hyperkalemia; E11.65 Type 2 diabetes mellitus with hyperglycemia; T38.0X5A Adverse effect of glucocorticoids and synthetic analogues, initial encounter; Y92.9 Unspecified place or not applicable; Z91.14 Patient's other noncompliance with medication regimen; Z79.4 Long term (current) use of insulin; Z79.899 Other long term (current) drug therapy
CPT/HCPCS: 36415; 71275; 80048; 80053; 80076; 82728; 82947; 83036; 83605; 83615; 83880; 84145; 84484; 85025; 85379; 85610; 85730; 87040; 93005; 96361; 96365; 96366; 96367; 96375; 99285; J0456; J0696; J1100; J1650; J8540; Q9967

== ENCOUNTER 2020-10-16 10:03 | Outpatient (REF) | payer OTHER, SELFPAY | END 2020-10-16 10:04 | disposition home or self-care (01) | LOC: HO.LAB 10:03 | PROVIDERS: Visit Provider Internal Medicine | DX: Z20.828 Contact with and (suspected) exposure to other viral communicable diseases (principal) | CPT/HCPCS: 36415; C9803; U0003 ==

== ENCOUNTER 2020-10-18 15:05 | Outpatient (REF) | payer OTHER, SELFPAY ==
[2020-10-18 15:53] LABS: Estimated Average Glucose 278 mg/dL; Hemoglobin A1c % 11.3 %
== END 2020-10-18 15:06 | disposition home or self-care (01) ==
LOC: HO.LNP 15:05
PROVIDERS: Visit Provider Internal Medicine
DX: U07.1 COVID-19 (principal); E11.9 Type 2 diabetes mellitus without complications
CPT/HCPCS: 83036

== ENCOUNTER 2021-10-17 09:56 | Outpatient (REF) | payer OTHER, SELFPAY ==
[2021-10-17 10:30] LABS: Basophils Percent Auto 0.3 % (0-2); Eosinophils Absolute Auto 0.2 X10*3/uL (0.0-0.4); Eosinophils Percent Auto 3.5 % (0-4); Hematocrit 45.7 % (42.0-52.0); Hemoglobin 15.6 g/dl (14.0-18.0); Imm Gran Abs Auto 0.02 X10*3/uL (0.00-0.03); Imm Gran Pct Auto 0.3 % (0.0-0.4); Lymphocytes Absolute Auto 1.8 X10*3/uL (1.2-4.9); Lymphocytes Percent Auto 29.5 % (20-40); MANUAL DIFF FLAG NO; Mean Corpuscular HGB Conc 34.1 g/dl (31.0-36.0); Mean Corpuscular Hemoglobin 30.6 pg (27.0-33.0); Mean Corpuscular Volume 89.8 fL (80.0-98.0); Mean Platelet Volume 11.6 fL (9.4-12.4); Monocytes Absolute Auto 0.6 X10*3/uL (0.1-1.2); Monocytes Percent Auto 9.3 % (2-11); Neutrophils Absolute Auto 3.5 x10*3/uL (2.0-8.3); Neutrophils Percent Auto 57.1 % (45-73); Platelet Count 171 X10*3/uL (160-400); Red Blood Count 5.09 X10*6/uL (4.60-5.80); Red Cell Distribution Width 11.6 % (11.0-16.0)
[2021-10-17 11:12] LABS: Microalbum/Creatinine Ratio Ur 9.1 ug/mg cr
[2021-10-17 11:19] LABS: Alanine Aminotransferase 22 U/L (0-40); Alkaline Phosphatase 156 U/L (39-117); Anion Gap 10 (12-20); Aspartate Amino Transferase 13 U/L (5-37); Bilirubin Total 1.1 mg/dL (0.0-1.0); Blood Urea Nitrogen 14 mg/dL (9-16); Calcium 9.6 mg/dL (8.4-10.2); Carbon Dioxide 28 mmol/L (22-29); Chloride 104 mmol/L (96-108); Cholesterol 230 mg/dL; Estimated Glomerular Filt Rate > 60; Glucose Fasting 313 mg/dL (60-99); HDL Cholesterol 69 mg/dL; LDL Cholesterol Calculated 148 mg/dl; Sodium 137 mmol/L (135-145); Total Protein 6.6 g/dL (6.5-8.0); Triglycerides 68 mg/dL
[2021-10-22 13:01] LABS: Vitamin D 25-OH, D2 <4 ng/mL; Vitamin D 25-OH, D3 34 ng/mL; Vitamin D 25-OH, Total 34 ng/mL (30-100)
== END 2021-10-17 09:57 | disposition home or self-care (01) ==
LOC: HO.LAB 09:56
PROVIDERS: PCP Internal Medicine; Visit Provider Internal Medicine
DX: R11.0 Nausea (principal); E78.5 Hyperlipidemia, unspecified; E11.65 Type 2 diabetes mellitus with hyperglycemia; E55.9 Vitamin D deficiency, unspecified; Z79.4 Long term (current) use of insulin
CPT/HCPCS: 36415; 80053; 80061; 82043; 82306; 85025

== ENCOUNTER 2021-10-20 13:01 | Emergency (ER) | payer OTHER, SELFPAY ==
--- NOTE | ~2021-10-20 | XR_ITS ---
EXAMINATION: XR CHEST CLINICAL INFORMATION: Cough, shortness of breath COMPARISON: None TECHNIQUE: 2 views of the chest were obtained. FINDINGS: No significant abnormality is noted involving the heart, lungs, mediastinum, bony thorax or soft tissues. XR/XR chest 2V IMPRESSION: Unremarkable chest examination.
[2021-10-20 14:06] VITALS: BP 158/87; PULSE 83; RESP 19; O2SAT 98; BMI 25.1
[2021-10-20 17:06] LABS: COVID-19 Test Positive (Negative); IDNOW Serial# 08D9AD1C
[2021-10-20 17:17] LABS: Glucose, Whole Blood 184 mg/dL (60-115)
--- NOTE | 2021-10-20 18:34 | ED_ITS ---
HPI - URI/Sore Throat General Chief Complaint: Upper Respiratory Symptoms Stated Complaint: cough SOB Time Seen by Provider: 10/20/21 13:33 Source: patient Mode of arrival: ambulatory Limitations: language barrier History of Present Illness HPI Narrative: history obtained by translater. patient with shortness of breath and coughing. A few weeks ago he had strong cough and now he is feeling sick again. Patient is vaccinated but not boostered. MD elicited complaint: cough Onset (ago): day(s) Consistency: constant Exacerbating factors: nothing Relieving factors: nothing Treatments prior to arrival: none Related Data Previous Rx's Medication Instructions Recorded atorvastatin 40 mg tablet 40 mg PO BEDTIME 90 Days #90 tab 11/13/20 pen needle, diabetic 31 gauge x #100 ea 02/11/21 3/16 (Easy Touch) insulin glargine 100 unit/mL (3 25 unit (0.25 mL) SUBCUT QPM 90 10/20/21 mL) subcutaneous pen (Lantus Days #22.5 ml Solostar U-100 Insulin) metformin 1,000 mg tablet 1,000 mg PO BID 90 Days #180 tab 10/20/21 Allergies Allergy/AdvReac Type Severity Reaction Status Date / Time No Known Allergies Allergy Verified 10/20/21 17:29 [No Known Allergies*] Review of Systems Constitutional: Constitutional: Reports no additional constitutional complai nts Eyes: Eyes: Reports no additional eye complaints ENT: Denies dizziness Cardiovascular: Cardiovascular: Reports no additional cardiovascular complaints Respiratory: Respiratory: Reports as per HPI Gastrointestinal: Gastrointestinal: Reports no additional gastrointestinal complaints Musculoskeletal: Musculoskeletal: Reports no additional musculoskeletal complaints Integumentary/Breasts: Skin/Breast: Denies rash Neurologic: Reports system reviewed and no additional complaints, except as documented, Denies dizziness and Denies Sensory deficit (Neuro) Psychiatric: Psychiatric: Denies anxiety PMFSH Past Medical History Medical History Diabetes Dyslipidemia MCFP (current) use of insulin Nausea Poor compliance Surgical History No pertinent past surgical history Family History Family History Father Stroke Mother No problems noted. Sister Diabetes Social History Social History Household Members: Spouse Housing: House Do you presently have visiting nurse or other home services: No Alcohol intake: never Patient Tobacco Use Status: Never used Tobacco e-Cigarette/Vaping Use: Never Used Second Hand Smoke Exposure: No Advance Directives: No Advance Directives Information Provided: Yes service: No Current occupational status: unemployed Physical Exam Vital Signs: Vital Signs: Last Vital Signs Pulse 83 10/20/21 14:06 Resp 19 10/20/21 14:06 BP 158/87 H 10/20/21 14:06 Pulse Ox 98 10/20/21 14:06 BMI result Body Mass Index 25.1 Const: General: healthy appearing Nutritional Appearance: average body habitus Orientation/consciousness: oriented to person and patient oriented x3 Limitations: no limitations HENMT: Head: Yes normal to inspection Ears: external ears normal General nose exam: Normal external nose present Mouth: Normal oral and palatal mucosa present and oropharynx normal Throat: Yes posterior oropharynx normal Eyes: General: appearance normal, both eyes and all related structures Neck: Other: supple Neck: Yes normal visual inspection Chest: Chest palpation & inspection: normal inspection of the chest Resp: Auscultation: clear to auscultation bilaterally Cardio: Jugular venous distension: no JVD Rate: regular rate Rhythm: regular rhythm Heart sounds: S1 normal heart sound present and S2 normal heart sound present GI: Inspection: Yes normal to inspection Palpation (GI): Soft to palpation, nontender and No hepatosplenomegaly present Auscultation: normal bowel sounds : General: Yes no CVA tenderness Back/Spine/Pelvis: Back: no CVA tenderness Skin: General skin exam: no rashes or lesions noted Neuro: General: oriented to person and patient oriented x3 Cranial nerves: Yes CN's II-XII intact bilaterally Motor exam (neuro): 5/5 motor strength present throughout Sensory Exam: No Sensory deficit (Neuro) Extrem: General: Yes normal to inspection Psych: Appearance: grossly normal Course Reevaluation(s) Reevaluation #1: patient is COVID positive, his vitals and physical exam are normal Time: 19:00 MDM - URI/Sore Throat Lab Data Labs: Lab Results 10/20/21 10/20/21 Range/Units 16:41 17:13 POC Glucose 184 H (60-115) mg/dL COVID-19 ([facility]) Positive A (Negative) COVID-19 Clin Com See Note Imaging Data Chest x-ray: Radiologist's impression: FINDINGS: No significant abnormality is noted involving the heart, lungs, mediastinum, bony thorax or soft tissues. XR/XR chest 2V IMPRESSION: Unremarkable chest examination. Discharge Plan Discharge Clinical Impression: COVID-19 Diabetes Qualifiers: Diabetes mellitus type: type 2 Diabetes mellitus complication status: without complication Patient Disposition: Home, Self-Care Instructions: COVID-19 (Coronavirus Disease 2019) (ED) Prescriptions: No Action atorvastatin 40 mg tablet 40 mg PO BEDTIME 90 Days Qty: 90 RF: 3 (DME) pen needle, diabetic [Easy Touch] 31 gauge x 3/16 needle See Rx Instructions .ROUTE .MEDSUPPLY Qty: 100 RF: 11 metformin 1,000 mg tablet 1,000 mg PO BID 90 Days Qty: 180 RF: 2 Lantus Solostar U-100 Insulin 100 unit/mL (3 mL) insulin pen 25 unit subcut QPM 90 Days Qty: 22.5 RF: 1 Referrals: Kylee Louis MD [Primary Care Provider] - 10 days Stand Alone Forms: Work/School Release
== END 2021-10-20 19:10 | disposition home or self-care (01) ==
PROVIDERS: Emergency Provider Emergency Medicine; PCP Internal Medicine
DX: U07.1 COVID-19 (principal); R06.02 Shortness of breath; E11.9 Type 2 diabetes mellitus without complications; E78.5 Hyperlipidemia, unspecified; Z79.02 Long term (current) use of antithrombotics/antiplatelets; Z79.4 Long term (current) use of insulin
CPT/HCPCS: 71046; 82947; 87635; 99283

== ENCOUNTER 2022-08-02 04:57 | Inpatient (IN) | payer OTHER, SELFPAY ==
[2022-08-02] VITALS (8 sets, daily range): BP systolic 116–142; BP diastolic 71–85; PULSE 63–84; RESP 12–20; TEMP 36.2–36.8; O2SAT 96–100; BMI 24.5
--- NOTE | ~2022-08-02 | CT_ITS ---
EXAMINATION: CT angio head neck CLINICAL INFORMATION: Left-sided weakness and headache. COMPARISON: CT scan of the head 08/02/2022 TECHNIQUE: Toll Collector Supervisor images were obtained. A CT angiogram of the head and neck was performed in the arterial phase after the intravenous administration of 70 mL Omnipaque 350. Delayed postcontrast images of the head were also obtained. MIP reconstructions were generated in multiple orientations at the acquisition workstation. Multiple three-dimensional surface rendered images and maximum intensity projection images were generated on a dedicated 3-D lab workstation. Arterial stenoses are measured in accordance with NASCET criteria or similar method if applicable. This CT examination was performed using dose optimization techniques as appropriate, including one or more of the following: Automated exposure control, iterative reconstruction, and adjustment of technique factors (mA and/or kVp) according to patient size (this includes techniques or standardized protocols for targeted exams where dose is matched to indication/reason for exam). Fleischner Society criteria for the followup of incidental pulmonary nodules was implemented if appropriate. Total exam dose-length product 2292 mGy-cm FINDINGS: Head: There is no acute intracranial hemorrhage or abnormal extra-axial collection. No intracranial mass effect or midline shift. Lateral and third ventricles are normal. No hydrocephalus. Martinez-white matter differentiation is preserved and there is no evidence of acute territorial infarct. The calvarium and skull base are intact. Mastoid air cells and middle ear cavities are well aerated. The right maxillary sinus is completely opacified and there is mild mucosal thickening within ethmoid air cells and sphenoid sinus. CT angiogram neck: The aortic arch apex is normal. Origins of the major aortic branches are widely patent. Common carotid arteries and carotid bifurcations are normal. No stenosis of the extracranial internal carotid arteries. The cervical segments of the vertebral arteries as well as their origins are patent. CT angiogram head: Scattered atheromatous calcification involves the cavernous segments of both internal carotid arteries. Intracranial internal carotid arteries are otherwise patent. Intradural vertebral artery segments and basilar artery are patent. Anterior, middle, and posterior cerebral complexes are normal. No intracranial large vessel occlusion. Other: Soft tissues of the neck including the thyroid gland are normal. No pathologically enlarged cervical lymph nodes. Lung apices are clear. No acute osseous finding. CT/CT angio head neck IMPRESSION: Unremarkable examination in that there is no stenosis of the cervical carotid or vertebral arteries. No intracranial large vessel occlusion. There is no evidence of acute territorial infarct or hemorrhage. No abnormal intracranial mass or enhancement.
--- NOTE | ~2022-08-02 | MR_ITS ---
EXAMINATION: BRAIN MRI WITHOUT CONTRAST CLINICAL INFORMATION: Bilateral hemianopia. Left-sided weakness. COMPARISON: CT angiogram of the head and neck 08/02/2022. TECHNIQUE: Multiplanar MR imaging of the brain was performed without contrast. FINDINGS: There is no acute territorial infarct. No pathological magnetic susceptibility artifact. Intracranial vascular flow voids are maintained. There is no intracranial mass effect or midline shift. No abnormal extra axial collection. Lateral and third ventricles are normal. No hydrocephalus. Midline structures including the cervicomedullary junction are normal. No acute bone marrow signal changes. There is no mastoid or middle ear effusion. Similar to findings associated on prior imaging there is paranasal sinus disease with complete opacification of the right maxillary sinus. MR/MR head/brain wo con IMPRESSION: Unremarkable examination in that there is no evidence of acute territorial infarct or hemorrhage. No intracranial mass effect or hydrocephalus.
[2022-08-02 05:46] LABS: Glucose, Whole Blood 291 mg/dL (60-115)
[2022-08-02 06:22] LABS: MANUAL DIFF FLAG NO
[2022-08-02 06:32] LABS: Basophils Percent Auto 0.4 % (0-2); Eosinophils Absolute Auto 0.2 X10*3/uL (0.0-0.4); Eosinophils Percent Auto 2.2 % (0-4); Hematocrit 44.1 % (42.0-52.0); Hemoglobin 15.3 g/dl (14.0-18.0); Imm Gran Abs Auto 0.02 X10*3/uL (0.00-0.03); Imm Gran Pct Auto 0.3 % (0.0-0.4); Lymphocytes Absolute Auto 1.6 X10*3/uL (1.2-4.9); Lymphocytes Percent Auto 20.3 % (20-40); Mean Corpuscular HGB Conc 34.7 g/dl (31.0-36.0); Mean Corpuscular Hemoglobin 31.5 pg (27.0-33.0); Mean Corpuscular Volume 90.9 fL (80.0-98.0); Mean Platelet Volume 11.7 fL (9.4-12.4); Monocytes Absolute Auto 0.7 X10*3/uL (0.1-1.2); Monocytes Percent Auto 9.6 % (2-11); Neutrophils Absolute Auto 5.2 x10*3/uL (2.0-8.3); Neutrophils Percent Auto 67.2 % (45-73); Platelet Count 178 X10*3/uL (160-400); Red Blood Count 4.85 X10*6/uL (4.60-5.80); Red Cell Distribution Width 11.2 % (11.0-16.0); White Blood Count 7.7 X10*3/uL (4.8-10.8)
[2022-08-02 06:39] LABS: Alanine Aminotransferase 13 U/L (0-40); Albumin Level 3.8 g/dL (3.5-5.0); Alkaline Phosphatase 136 U/L (39-117); Anion Gap 15 (12-20); Aspartate Amino Transferase 10 U/L (5-37); Bilirubin Total 1.1 mg/dL (0.0-1.0); Blood Urea Nitrogen 20 mg/dL (9-16); Calcium 9.1 mg/dL (8.4-10.2); Carbon Dioxide 26 mmol/L (22-29); Chloride 100 mmol/L (96-108); Estimated Glomerular Filt Rate > 60; Glucose Random 327 mg/dL (60-115); Potassium 4.6 mmol/L (3.3-5.1); Sodium 136 mmol/L (135-145); Total Protein 6.4 g/dL (6.5-8.0)
--- NOTE | 2022-08-02 10:12 | ED.HA ---
HPI - Headache General Chief Complaint: Headache <HUMERA Stewart - Last Filed: 08/02/22 13:42> Stated Complaint: headache <HUMERA Stewart - Last Filed: 08/02/22 13:42> Time Seen by Provider: 08/02/22 10:11 <HUMERA Stewart - Last Filed: 08/02/22 13:42> Source: patient <HUMERA Stewart - Last Filed: 08/02/22 13:42> Mode of arrival: ambulatory <HUMERA Stewart - Last Filed: 08/02/22 13:42> Limitations: no limitations <HUMERA Stewart - Last Filed: 08/02/22 13:42> History of Present Illness HPI Narrative: 51 yo male with history of diabetes with poor compliance, HLD who presents to the ER for 1 week of throbbing headaches, left sided weakness, lightheadedness and 3 falls. Patient is a poor historian. He states his symptoms are at least a week old, maybe longer and he has been ignoring them. He states he has been at work this week with notable lightheadedness with exertion, dizziness and headaches. The headaches come and go and are generalized. He does not recall when he developed left sided weakness but his reports he has tripped and fell 3x times this week. He did not sustain any injuries. He did not hit his head or lose consciousness. He states his sugars have been high , 260s yesterday. He is on injectable medication but does not know the name. He denies any chest pain, SOB, N/V/D or abdominal pain. No sensory loss, difficulty speaking or eating. He has been having recurrent episodes of brief nose bleeds as well for the last 2 weeks, mostly at night. Self resolve. Not on anticoagulation. <HUMERA Stewart - Last Filed: 08/02/22 13:42> elicited complaint: headache <HUMERA Stewart - Last Filed: 08/02/22 13:42> Onset (ago): unknown <HUMERA Stewart Last Filed: 08/02/22 13:42> Onset description: gradually <HUMERA Stewart - Last Filed: 08/02/22 13:42> Location: generalized <HUMERA Stewart Last Filed: 08/02/22 13:42> Severity: moderate <HUMERA Stewart Last Filed: 08/02/22 13:42> Quality & Timing: aching and throbbing <HUMERA Stewart Last Filed: 08/02/22 13:42> Exacerbating factors: exertion <HUMERA Stewart Last Filed: 08/02/22 13:42> Associated symptoms: confusion, weakness and lightheadedness <HUMERA Stewart Last Filed: 08/02/22 13:42> Treatments prior to arrival: none <HUMERA Stewart Last Filed: 08/02/22 13:42> Related Data Home Medications: Home Medications Medication Instructions Recorded Confirmed insulin glargine 100 unit/mL (3 26 unit subcut DAILY 08/02/22 08/02/22 mL) subcutaneous pen (Lantus Solostar U-100 Insulin) Previous Rx's Medication Instructions Recorded atorvastatin 40 mg tablet 40 mg PO BEDTIME 90 days #90 tabs 11/13/20 pen needle, diabetic 31 gauge x #100 ea 02/11/21 3/16 (Easy Touch) metformin 1,000 mg tablet 1,000 mg PO BID 90 days #180 tabs 10/20/21 <HUMERA Stewart Last Filed: 08/02/22 13:42> Allergies/Adverse Reactions: Allergies Allergy/AdvReac Type Severity Reaction Status Date / Time No Known Allergies Allergy Verified 10/20/21 17:29 [No Known Allergies*] <HUMERA Stewart Last Filed: 08/02/22 13:42> Review of Systems Review of Systems: Constitutional: No Fever, No Chills ENT/Mouth: No sore throat, No Rhinorrhea, No Swallowing Difficulty Eyes: No Eye Pain, No Swelling, No Redness Cardiovascular: No Chest Pain, No SOB, No Orthopnea, No Edema Respiratory: No Cough, No Sputum, No Wheezing, No dyspnea Gastrointestinal: No Nausea, No Vomiting, No Diarrhea, No abdominal Pain, No Hematochezia, No Melena Genitourinary: No Dysuria, No Urinary Frequency, No Hematuria Musculoskeletal: No joint pain, No Myalgias Skin: No Skin Lesions, No rash Neuro: + Weakness, No Numbness, + Dizziness, + Headache Psych: No Anxiety/Panic, No Depression Heme/Lymph: No Bruising, No Lymphadenopathy Endocrine: No Polyuria, No Polydipsia <HUMERA Stewart - Last Filed: 08/02/22 13:42> [facility] Past Medical History Medical History: Medical History Diabetes 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 Sister Diabetes <HUMERA Stewart - Last Filed: 08/02/22 13:42> Social History Social History: Social History Household Members: Spouse Housing: House Do you presently have visiting nurse or other home services: No Alcohol intake: never Patient Tobacco Use Status: Never used Tobacco e-Cigarette/Vaping Use: Never Used Second Hand Smoke Exposure: No Advance Directives: No Advance Directives Information Provided: Yes service: No Current occupational status: unemployed <HUMERA Stewart - Last Filed: 08/02/22 13:42> Physical Exam Vital Signs: Vital Signs: Last Vital Signs Temp 98.2 F 08/02/22 19:46 Pulse 69 08/02/22 19:46 Resp 13 08/02/22 19:46 BP 117/72 08/02/22 19:46 Pulse Ox 96 08/02/22 19:46 O2 Del Method 08/02/22 19:46 BMI result Body Mass Index 24.5 <HUMERA Stewart - Last Filed: 08/02/22 13:42> Vital Signs: Last Vital Signs Temp 98.2 F 08/02/22 19:46 Pulse 69 08/02/22 19:46 Resp 13 08/02/22 19:46 BP 117/72 08/02/22 19:46 Pulse Ox 96 08/02/22 19:46 O2 Del Method 08/02/22 19:46 BMI result Body Mass Index 24.5 <Sourav Puckett MD - Last Filed: 08/02/22 21:23> Appearance: Alert. Oriented X3. No acute distress. Eyes: Pupils equal, round and reactive to light. ENT: Pharynx normal. No active epistaxis, no clots in the nares. Neck: Normal inspection. Neck supple. CVS: Normal heart rate and rhythm. Pulses normal. Respiratory: No respiratory distress. Breath sounds normal. Abdomen: Soft and nontender. +BS x4 Skin: Skin warm and dry. Normal skin color. Normal skin turgor. No rashes. Extremities: No lower extremity edema. Normal inspection and ROM of att 4 extremities. Neuro: Oriented X 3. CN II-XII grossly intact. Normal speech and cognition. No facial droop. He has 4/5 weakness of the left upper and left lower extremities. +bitemporal visual field deficits. No sensory deficits. steady unassisted gait <HUMERA Stewart - Last Filed: 08/02/22 13:42> NIH Stroke Scale Internal: Initial- Upon Arrival <HUMERA Stewart - Last Filed: 08/02/22 13:42> Time: 10:32 <HUMERA Stewart - Last Filed: 08/02/22 13:42> Level of Consciousness: Alert <HUMERA Stewart - Last Filed: 08/02/22 13:42> Level of Consciousness Questions: Answers both questions correctly <HUMERA Stewart - Last Filed: 08/02/22 13:42> Level of Consciousness Commands: Performs both tasks correctly <HUMERA Stewart - Last Filed: 08/02/22 13:42> Best Gaze: Normal <HUMERA Stewart Last Filed: 08/02/22 13:42> Visual: Bilateral hemianopia <HUMERA Stewart Last Filed: 08/02/22 13:42> Facial Palsy: Normal <HUMERA Stewart - Last Filed: 08/02/22 13:42> Motor Arm (Right): No drift <HUMERA Stewart - Last Filed: 08/02/22 13:42> Motor Arm (Left): Drift <HUMERA Stewart - Last Filed: 08/02/22 13:42> Motor Leg (Right): No drift <HUMERA Stewart - Last Filed: 08/02/22 13:42> Motor Leg (Left): Some effort against gravity <HUMERA Stewart - Last Filed: 08/02/22 13:42> Limb Ataxia: Absent <HUMERA Stewart - Last Filed: 08/02/22 13:42> Sensory: Normal <HUMERA Stewart - Last Filed: 08/02/22 13:42> Best Language: No aphasia <HUMERA Stewart - Last Filed: 08/02/22 13:42> Dysarthia: Normal <HUMERA Stewart - Last Filed: 08/02/22 13:42> Extinction and Inattention: No abnormality <HUMERA Stewart - Last Filed: 08/02/22 13:42> Score: 6 <HUMERA Stewart - Last Filed: 08/02/22 13:42> 6 <Sourav Puckett MD - Last Filed: 08/02/22 21:23> Course Course Course Narrative: 51 yo male with history of DM, HLD, poor compliance who presents to the ER for evaluation of headaches, nosebleeds, lightheadedness. On examination today patient was noted to have 4/5 weakness on the left side, +pronator drift and bilateral temporal hemianopsia, concerning for CVA. Denies history of stroke. Will get CT head/CTA head/neck. Out of any window for tPA or neurointervention if LVO. Will require admission for stroke workup. <HUMERA Stewart - Last Filed: 08/02/22 13:42> Reevaluation(s) Reevaluation #1: CTA negative for an acute stroke or LVO. Will plan for admission for MRI and stroke workup. <HUMERA Stewart - Last Filed: 08/02/22 13:42> MDM - Headache Medical Records Attestation: I reviewed the patient's medical records. <HUMERA Stewart - Last Filed: 08/02/22 13:42> Lab Data Attestation: I reviewed the patient's lab results. <HUMERA Stewart - Last Filed: 08/02/22 13:42> Result diagrams: : 08/02/22 06:16 08/02/22 06:16 <HUMERA Stewart - Last Filed: 08/02/22 13:42> Labs: Lab Results 08/02/22 08/02/22 08/02/22 Range/Units 05:37 06:16 06:16 WBC 7.7 (4.8-10.8) X10*3/uL RBC 4.85 (4.60-5.80) X10*6/uL Hgb 15.3 (14.0-18.0) g/dl Hct 44.1 (42.0-52.0) % MCV 90.9 (80.0-98.0) fL MCH 31.5 (27.0-33.0) pg MCHC 34.7 (31.0-36.0) g/dl RDW 11.2 (11.0-16.0) % Plt Count 178 (160-400) X10*3/uL MPV 11.7 (9.4-12.4) fL Immature Gran % (Auto) 0.3 (0.0-0.4) % Neut % (Auto) 67.2 (45-73) % Lymph % (Auto) 20.3 (20-40) % [place] % (Auto) 9.6 (2-11) % Eos % (Auto) 2.2 (0-4) % Baso % (Auto) 0.4 (0-2) % Lymph # (Auto) 1.6 (1.2-4.9) X10*3/uL [place] # (Auto) 0.7 (0.1-1.2) X10*3/uL Eos # (Auto) 0.2 (0.0-0.4) X10*3/uL Baso # (Auto) 0.0 (0.0-0.2) X10*3/uL Abs Immat Gran (auto) 0.02 (0.00-0.03) X10*3/uL Absolute Neuts (auto) 5.2 (2.0-8.3) x10*3/uL Absolute Nucleated RBC 0.000 (0.0-0.012) X10*3/uL Nucleated RBC % (auto) 0.0 (0.0-0.2) /100WBC Sodium 136 (135-145) mmol/L Potassium 4.6 (3.3-5.1) mmol/L Chloride 100 (96-108) mmol/L Carbon Dioxide 26 (22-29) mmol/L Anion Gap 15 (12-20) BUN 20 H (9-16) mg/dL Creatinine 0.97 (0.5-1.4) mg/dL Estim Creat Clear Calc 90.0 Estimated GFR > 60 POC Glucose 291 H (60-115) mg/dL Random Glucose 327 H (60-115) mg/dL Calcium 9.1 (8.4-10.2) mg/dL Total Bilirubin 1.1 H (0.0-1.0) mg/dL Direct Bilirubin 0.4 (0.0-0.5) mg/dL AST 10 (5-37) U/L ALT 13 (0-40) U/L Alkaline Phosphatase 136 H (39-117) U/L Total Protein 6.4 L (6.5-8.0) g/dL Albumin 3.8 (3.5-5.0) g/dL Triglycerides 91 mg/dL Cholesterol 208 mg/dL LDL Cholesterol, Calc 127 mg/dl HDL Cholesterol 63 mg/dL Vitamin B12 TSH 1.35 (0.32-4.0) uIU/mL COVID-19 ([facility]) (Negative) COVID-19 Clin Com 08/02/22 08/02/22 08/02/22 Range/Units 06:16 06:16 10:39 WBC (4.8-10.8) X10*3/uL RBC (4.60-5.80) X10*6/uL Hgb (14.0-18.0) g/dl Hct (42.0-52.0) % MCV (80.0-98.0) fL MCH (27.0-33.0) pg MCHC (31.0-36.0) g/dl RDW (11.0-16.0) % Plt Count (160-400) X10*3/uL MPV (9.4-12.4) fL Immature Gran % (Auto) (0.0-0.4) % Neut % (Auto) (45-73) % Lymph % (Auto) (20-40) % [place] % (Auto) (2-11) % Eos % (Auto) (0-4) % Baso % (Auto) (0-2) % Lymph # (Auto) (1.2-4.9) X10*3/uL [place] # (Auto) (0.1-1.2) X10*3/uL Eos # (Auto) (0.0-0.4) X10*3/uL Baso # (Auto) (0.0-0.2) X10*3/uL Abs Immat Gran (auto) (0.00-0.03) X10*3/uL Absolute Neuts (auto) (2.0-8.3) x10*3/uL Absolute Nucleated RBC (0.0-0.012) X10*3/uL Nucleated RBC % (auto) (0.0-0.2) /100WBC Sodium (135-145) mmol/L Potassium (3.3-5.1) mmol/L Chloride (96-108) mmol/L Carbon Dioxide (22-29) mmol/L Anion Gap (12-20) BUN (9-16) mg/dL Creatinine (0.5-1.4) mg/dL Estim Creat Clear Calc Estimated GFR POC Glucose (60-115) mg/dL Random Glucose (60-115) mg/dL Calcium (8.4-10.2) mg/dL Total Bilirubin (0.0-1.0) mg/dL Direct Bilirubin (0.0-0.5) mg/dL AST (5-37) U/L ALT (0-40) U/L Alkaline Phosphatase (39-117) U/L Total Protein (6.5-8.0) g/dL Albumin (3.5-5.0) g/dL Triglycerides mg/dL Cholesterol mg/dL LDL Cholesterol, Calc mg/dl HDL Cholesterol mg/dL Vitamin B12 Cancelled 736 TSH (0.32-4.0) uIU/mL COVID-19 ([facility]) Negative (Negative) COVID-19 Clin Com See Note 10/23/22 Range/Units 12:00 WBC (4.8-10.8) X10*3/uL RBC (4.60-5.80) X10*6/uL Hgb (14.0-18.0) g/dl Hct (42.0-52.0) % MCV (80.0-98.0) fL MCH (27.0-33.0) pg MCHC (31.0-36.0) g/dl RDW (11.0-16.0) % Plt Count (160-400) X10*3/uL MPV (9.4-12.4) fL Immature Gran % (Auto) (0.0-0.4) % Neut % (Auto) (45-73) % Lymph % (Auto) (20-40) % [place] % (Auto) (2-11) % Eos % (Auto) (0-4) % Baso % (Auto) (0-2) % Lymph # (Auto) (1.2-4.9) X10*3/uL [place] # (Auto) (0.1-1.2) X10*3/uL Eos # (Auto) (0.0-0.4) X10*3/uL Baso # (Auto) (0.0-0.2) X10*3/uL Abs Immat Gran (auto) (0.00-0.03) X10*3/uL Absolute Neuts (auto) (2.0-8.3) x10*3/uL Absolute Nucleated RBC (0.0-0.012) X10*3/uL Nucleated RBC % (auto) (0.0-0.2) /100WBC Sodium (135-145) mmol/L Potassium (3.3-5.1) mmol/L Chloride (96-108) mmol/L Carbon Dioxide (22-29) mmol/L Anion Gap (12-20) BUN (9-16) mg/dL Creatinine (0.5-1.4) mg/dL Estim Creat Clear Calc Estimated GFR POC Glucose 247 H (60-115) mg/dL Random Glucose (60-115) mg/dL Calcium (8.4-10.2) mg/dL Total Bilirubin (0.0-1.0) mg/dL Direct Bilirubin (0.0-0.5) mg/dL AST (5-37) U/L ALT (0-40) U/L Alkaline Phosphatase (39-117) U/L Total Protein (6.5-8.0) g/dL Albumin (3.5-5.0) g/dL Triglycerides mg/dL Cholesterol mg/dL LDL Cholesterol, Calc mg/dl HDL Cholesterol mg/dL Vitamin B12 TSH (0.32-4.0) uIU/mL COVID-19 ([facility]) (Negative) COVID-19 Clin Com <HUMERA Stewart - Last Filed: 08/02/22 13:42> Lab Results 08/02/22 08/02/22 08/02/22 Range/Units 05:37 06:16 06:16 WBC 7.7 (4.8-10.8) X10*3/uL RBC 4.85 (4.60-5.80) X10*6/uL Hgb 15.3 (14.0-18.0) g/dl Hct 44.1 (42.0-52.0) % MCV 90.9 (80.0-98.0) fL MCH 31.5 (27.0-33.0) pg MCHC 34.7 (31.0-36.0) g/dl RDW 11.2 (11.0-16.0) % Plt Count 178 (160-400) X10*3/uL MPV 11.7 (9.4-12.4) fL Immature Gran % (Auto) 0.3 (0.0-0.4) % Neut % (Auto) 67.2 (45-73) % Lymph % (Auto) 20.3 (20-40) % [place] % (Auto) 9.6 (2-11) % Eos % (Auto) 2.2 (0-4) % Baso % (Auto) 0.4 (0-2) % Lymph # (Auto) 1.6 (1.2-4.9) X10*3/uL [place] # (Auto) 0.7 (0.1-1.2) X10*3/uL Eos # (Auto) 0.2 (0.0-0.4) X10*3/uL Baso # (Auto) 0.0 (0.0-0.2) X10*3/uL Abs Immat Gran (auto) 0.02 (0.00-0.03) X10*3/uL Absolute Neuts (auto) 5.2 (2.0-8.3) x10*3/uL Absolute Nucleated RBC 0.000 (0.0-0.012) X10*3/uL Nucleated RBC % (auto) 0.0 (0.0-0.2) /100WBC Sodium 136 (135-145) mmol/L Potassium 4.6 (3.3-5.1) mmol/L Chloride 100 (96-108) mmol/L Carbon Dioxide 26 (22-29) mmol/L Anion Gap 15 (12-20) BUN 20 H (9-16) mg/dL Creatinine 0.97 (0.5-1.4) mg/dL Estim Creat Clear Calc 90.0 Estimated GFR > 60 POC Glucose 291 H (60-115) mg/dL Random Glucose 327 H (60-115) mg/dL Calcium 9.1 (8.4-10.2) mg/dL Total Bilirubin 1.1 H (0.0-1.0) mg/dL Direct Bilirubin 0.4 (0.0-0.5) mg/dL AST 10 (5-37) U/L ALT 13 (0-40) U/L Alkaline Phosphatase 136 H (39-117) U/L Total Protein 6.4 L (6.5-8.0) g/dL Albumin 3.8 (3.5-5.0) g/dL Triglycerides 91 mg/dL Cholesterol 208 mg/dL LDL Cholesterol, Calc 127 mg/dl HDL Cholesterol 63 mg/dL Vitamin B12 TSH 1.35 (0.32-4.0) uIU/mL COVID-19 ([facility]) (Negative) COVID-19 Clin Com 08/02/22 08/02/22 08/02/22 Range/Units 06:16 06:16 10:39 WBC (4.8-10.8) X10*3/uL RBC (4.60-5.80) X10*6/uL Hgb (14.0-18.0) g/dl Hct (42.0-52.0) % MCV (80.0-98.0) fL MCH (27.0-33.0) pg MCHC (31.0-36.0) g/dl RDW (11.0-16.0) % Plt Count (160-400) X10*3/uL MPV (9.4-12.4) fL Immature Gran % (Auto) (0.0-0.4) % Neut % (Auto) (45-73) % Lymph % (Auto) (20-40) % [place] % (Auto) (2-11) % Eos % (Auto) (0-4) % Baso % (Auto) (0-2) % Lymph # (Auto) (1.2-4.9) X10*3/uL [place] # (Auto) (0.1-1.2) X10*3/uL Eos # (Auto) (0.0-0.4) X10*3/uL Baso # (Auto) (0.0-0.2) X10*3/uL Abs Immat Gran (auto) (0.00-0.03) X10*3/uL Absolute Neuts (auto) (2.0-8.3) x10*3/uL Absolute Nucleated RBC (0.0-0.012) X10*3/uL Nucleated RBC % (auto) (0.0-0.2) /100WBC Sodium (135-145) mmol/L Potassium (3.3-5.1) mmol/L Chloride (96-108) mmol/L Carbon Dioxide (22-29) mmol/L Anion Gap (12-20) BUN (9-16) mg/dL Creatinine (0.5-1.4) mg/dL Estim Creat Clear Calc Estimated GFR POC Glucose (60-115) mg/dL Random Glucose (60-115) mg/dL Calcium (8.4-10.2) mg/dL Total Bilirubin (0.0-1.0) mg/dL Direct Bilirubin (0.0-0.5) mg/dL AST (5-37) U/L ALT (0-40) U/L Alkaline Phosphatase (39-117) U/L Total Protein (6.5-8.0) g/dL Albumin (3.5-5.0) g/dL Triglycerides mg/dL Cholesterol mg/dL LDL Cholesterol, Calc mg/dl HDL Cholesterol mg/dL Vitamin B12 Cancelled 736 TSH (0.32-4.0) uIU/mL COVID-19 ([facility]) Negative (Negative) COVID-19 Clin Com See Note 08/02/22 Range/Units 12:00 WBC (4.8-10.8) X10*3/uL RBC (4.60-5.80) X10*6/uL Hgb (14.0-18.0) g/dl Hct (42.0-52.0) % MCV (80.0-98.0) fL MCH (27.0-33.0) pg MCHC (31.0-36.0) g/dl RDW (11.0-16.0) % Plt Count (160-400) X10*3/uL MPV (9.4-12.4) fL Immature Gran % (Auto) (0.0-0.4) % Neut % (Auto) (45-73) % Lymph % (Auto) (20-40) % [place] % (Auto) (2-11) % Eos % (Auto) (0-4) % Baso % (Auto) (0-2) % Lymph # (Auto) (1.2-4.9) X10*3/uL [place] # (Auto) (0.1-1.2) X10*3/uL Eos # (Auto) (0.0-0.4) X10*3/uL Baso # (Auto) (0.0-0.2) X10*3/uL Abs Immat Gran (auto) (0.00-0.03) X10*3/uL Absolute Neuts (auto) (2.0-8.3) x10*3/uL Absolute Nucleated RBC (0.0-0.012) X10*3/uL Nucleated RBC % (auto) (0.0-0.2) /100WBC Sodium (135-145) mmol/L Potassium (3.3-5.1) mmol/L Chloride (96-108) mmol/L Carbon Dioxide (22-29) mmol/L Anion Gap (12-20) BUN (9-16) mg/dL Creatinine (0.5-1.4) mg/dL Estim Creat Clear Calc Estimated GFR POC Glucose 247 H (60-115) mg/dL Random Glucose (60-115) mg/dL Calcium (8.4-10.2) mg/dL Total Bilirubin (0.0-1.0) mg/dL Direct Bilirubin (0.0-0.5) mg/dL AST (5-37) U/L ALT (0-40) U/L Alkaline Phosphatase (39-117) U/L Total Protein (6.5-8.0) g/dL Albumin (3.5-5.0) g/dL Triglycerides mg/dL Cholesterol mg/dL LDL Cholesterol, Calc mg/dl HDL Cholesterol mg/dL Vitamin B12 TSH (0.32-4.0) uIU/mL COVID-19 ([facility]) (Negative) COVID-19 Clin Com <Sourav Puckett MD - Last Filed: 08/02/22 21:23> ECG Data Attestation: I personally reviewed and interpreted this ECG as follows: <HUMERA Stewart - Last Filed: 08/02/22 13:42> ECG interpretation date: 08/02/22 <HUMERA Stewart - Last Filed: 08/02/22 13:42> ECG interpretation time: 10:33 <HUMERA Stewart - Last Filed: 08/02/22 13:42> Prior ECG tracings: available for review <HUMERA Stewart - Last Filed: 08/02/22 13:42> Interpretation: normal sinus rhythm, HR 66 bpm, normal ME interval, normal QTc, no ST segment elevations or depressions. <HUMERA Stewart - Last Filed: 08/02/22 13:42> Critical Care Time Critical Care Time Critical Care Time: Yes <HUMERA Stewart - Last Filed: 08/02/22 13:42> Total Critical Care Time: 39 <HUMERA Stewart - Last Filed: 08/02/22 13:42> Attestation: I have personally provided critical care time exclusive of time spent on separately billable procedures. Time includes review of lab data, radiology results, discussion with consultants, and monitoring for potential decompensation. Intervention performed as documented. <HUMERA Stewart - Last Filed: 08/02/22 13:42> Discharge Plan Discharge Clinical Impression: Headache, Bilateral hemianopia, Acute left-sided weakness, Hyperglycemia <HUMERA Stewart - Last Filed: 08/02/22 13:42> Patient Disposition: Admitted As Inpatient <HUMERA Stewart - Last Filed: 08/02/22 13:42>
--- NOTE | 2022-08-02 10:14 | ECG_ITS ---
Test Reason : WEAKNESS Blood Pressure : / mmHG Vent. Rate : 066 BPM Atrial Rate : 066 BPM P-R Int : 116 ms QRS Dur : 088 ms QT Int : 400 ms P-R-T Axes : 062 049 012 degrees QTc Int : 419 ms Normal sinus rhythm Normal ECG No significant changes seen Referred By: Yoly Munoz Electronically Signed By:IVORY GAYTAN MD
[2022-08-02] MEDS: 0.9 % Sodium Chloride 1,000 ML 999 ML IVCONT (10:24)
--- NOTE | 2022-08-02 10:35 | PC.NURSE ---
pt received in bed, alert and oriented, accompanied by family member. Pt reports headache x 5 days. Given patient history of DM, further questioning uncovered a series of falls this week, as well as some dizziness and blurred vision. Neuro assessment reveals left sided weakness. PA to bedside, NIHSS performed. Plan is to obtain CTA head and neck. No other complaints. IV started to RAC, with 1L NS infusing at this time. Disposition pending. Plan is to admit for further workup and assessment.
[2022-08-02 11:05] LABS: Cholesterol 208 mg/dL; HDL Cholesterol 63 mg/dL; LDL Cholesterol Calculated 127 mg/dl; Triglycerides 91 mg/dL
[2022-08-02 11:17] LABS: COVID-19 Test Negative (Negative); IDNOW Serial# 16C4AD1C
[2022-08-02 12:04] LABS: Glucose, Whole Blood 247 mg/dL (60-115)
[2022-08-02] MEDS: iohexoL 350 MG/ML 100 ML INFUS..BTL IV (12:35)
--- NOTE | 2022-08-02 14:54 | PM.EVENT ---
Event Note Date of Service: 08/02/22 Event Note: Patient is Sinhala-speaking male /poor historian. History taken with the help of business development analyst. Patient came to the hospital because of chief complaint of headache specially in they left occipital/parietal-he describes headache as throbbing, constant from at least 2-3 weeks duration. 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 Dizziness? Unclear if it is dizziness or unsteadiness-but also seems chronic at least more than 3 4 weeks. He says left arm pain and weakness-? Which is also not clear how or long duration gaines but at least more than 2 weeks. He said he had few sliding from the chair movements(not fall as per patient),didnot hit his head or neck ,no loss of consciousness. He works in the [employer]. For he is a diabetic with poor diet compliance-please see Dr. Dukes (pcp)'s note for more information. He says that he had nasal congestion/URI recently and then he had some epistaxis after that which seems to be resolved . labs,imaging and ekg reviewed : Serum electrolytes as well as renal function seems fine, hemoglobin A1c is pending. Fingersticks are running in the range of 200-300 range CBC also fine cta neg mri pending Physical exam: Appearance: Alert.? Oriented X3.? not in distress.? Eyes: Pupils equal, round and reactive to light.? Sclera nonicteric. unable to eval perpheral vision since has -says has baseline blurry vision ENT: Pharynx normal.? Moist mucous membranes. nasal left side -has mild erythema, right nasal side is fine. cvs: rrr, [id number] res: clear to auscultation ,no rhonchii or wheezing abd: no rebound or guarding ,nt, bs present. ext pulses present , no cyanosis . neuro: axo3 main c/o headaches strength seems similar both upper and lower ext sensation on both feet -touch decreased dtr seems fine gait was also fine ,was not dizzy with walkin romberg -equivocal ,touch to head and nose-was also coordianted. no nystgmus Assessment and plan coordinated in H&P note. Agree with the plan in addition ? Dizziness and headache at least couple of weeks duration, weakness also at least couple of week maybe more than that even though it seems more pain in the upper arm rather than weakness. given sumatritan x1 in ed,also added fioricetx1 , tylenol prn ? Possible of peripheral neuropathy of both feet /dm uncontrolled-hemoglobin A1c in October is around 12. added b12 and tsh levels,also added MVI. Workup including CTA head seems fine, MRI pending which was ordered due to question of blurry vision/? Thought to be deficit of peripheral vision(or retinopathy). neurology eval need good dm education/complaince. continue home meds for dm,hlp , add asa dvt: mech devices,early ambulation, PT /ot
--- NOTE | 2022-08-02 14:57 | P.HPHOSP_ITS ---
History of Present Illness Date of Service: 08/02/22 Attending physician on admission: Sourav Puckett Chief Complaint: headache, weakness, dizziness 51-year-old male Georgian-speaking patient with history of insulin-dependent type 2 diabetes non compliant with diet with hyperglycemia, diabetic retinopathy, and hyperlipidemia presented to the ED earlier today for evaluation of multiple symptoms. Is reporting for the last week he has had constant pressure and throbbing in the left occipital/parietal aspect of the head. Denies worst headache of his life. There is no associated nausea / vomiting. He is also endorsing blurred vision but states this has been going on for 3 years and was previously receiving injections for retinopathy. he is also reporting weakness in the left extremities with at least 3 falls in recent weeks. States he fell backwards sitting on to the buttock and denies any head injury or loss of consciousness. He states that the leg weakness has been longe r standing and does endorse chronic low back pain. States the weakness in the left arm / hand has been ongoing for about 2 weeks. States weakness was present prior to the falls. he has had episodes of dizziness described as spinning sensation and feeling of being off balance as exacerbated by head movements. There has also been several episodes of nose bleeds that have stopped spontaneously with recent URI with rhinorrhea and congestion. 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 In addition to the weakness in the left arm he endorses radicular pain from the left side of the neck into the shoulder and arm. Denies any paresthesias. Denies any syncope. In the ED, VSS. Head/ neck CTA unremarkable without any stenosis of the cervical carotid or vertebral arteries. No intracranial large vessel occlusion. No evidence of acute infarct or hemorrhage. No abnormal intracranial mass or enhancement. Hematology studies unremarkable. Renal function/electrolytes normal. Glucose 247-327. Hgb A1c pending. total cholesterol 208, LDL 127, HDL 63. EKG showing NSR, rate [address] / T-wave abnormalities. Review of Systems Review of Systems: General: No fevers, malaise, unintentional weight loss HEENT: +blurred vision, +epistaxis, +recent URI. No Diplopia Cardiovascular: No chest pain, palpitations, or leg edema Respiratory: No shortness of breath, wheezing, cough GI: No abdominal pain, nausea, vomiting, diarrhea, constipation, melena, hematochezia MSK: + chronic low back pain, +RUE radicular pain Neuro: + dizziness, +headaches, + weakness. 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 Sister Diabetes Surgical History No pertinent past surgical history Social History Household Members: Spouse Housing: House Do you presently have visiting nurse or other home services: No Alcohol intake: never Patient Tobacco Use Status: Never used Tobacco e-Cigarette/Vaping Use: Never Used Second Hand Smoke Exposure: No Advance Directives: No Advance Directives Information Provided: Yes service: No Current occupational status: unemployed Meds Allergies Allergy/AdvReac Type Severity Reaction Status Date / Time No Known Allergies Allergy Verified 10/20/21 17:29 [No Known Allergies*] Active Medications: Current Medications Acetaminophen (Acetaminophen 325 Mg Tablet) 650 mg PO Q6H PRN PRN Reason: Pain, Mild (Pain Scale 1-3) Dextrose (Dextrose 50 % 25 Gm/50 Ml Syringe) 25 gm IVPUSH Q15M PRN; Protocol PRN Reason: per Hypoglycemia Standing Ord. Docusate Sodium (Docusate Sodium 100 Mg Capsule) 100 mg PO DAILY PRN PRN Reason: Constipation Glucose (Glucose Gel 15 Gm Gel..Gram.) 15 gm PO Q15M PRN; Protocol PRN Reason: per Hypoglycemia Standing Ord. Insulin Human Lispro (Insulin Lispro 100 Unit/Ml 3 Ml Vial) 0 unit SUBCUT QIDACHS [facility]; Protocol Ondansetron HCl (Ondansetron Hcl 4 Mg/2 Ml Vial) 4 mg IVPUSH Q8H PRN PRN Reason: Nausea and Vomiting Pharmacy Consult (Consult Rx Perform Med Rec) 1 each MISCELLANE ONCE PRN PRN Reason: Consult order Sodium Chloride (0.9 % Sodium Chloride Flush 3 Ml Syringe) 3 ml IVFLUSH [facility] Home Medications Medication Instructions Recorded Confirmed Last Taken Type insulin glargine 100 unit/mL (3 26 unit subcut DAILY 08/02/22 08/02/22 Unknown History mL) subcutaneous pen (Lantus Solostar U-100 Insulin) Physical Exam Vital Signs and Narrative: Vital Signs: Last Vital Signs Temp 98 F 08/02/22 08:15 Pulse 84 08/02/22 10:38 Resp 12 08/02/22 10:38 BP 142/72 H 08/02/22 10:38 Pulse Ox 100 08/02/22 10:38 O2 Del Method 08/02/22 10:38 BMI result Body Mass Index 24.5 Constitutional - Awake and Alert, No apparent distress Eyes - PERRLA, EOMI Nose: Erythema Left nare, no epistaxis Neck: Supple, no midline or paraspinal ttp Cardiovascular - S1S2, RRR, No edema Respiratory - Normal lung expansion, Normal respiratory effort, No respiratory distress, CTA bilaterally Gastrointestinal - NT / ND; +BS; No rebound or guarding Extremities - no calf tenderness bilaterally, no swelling Musculoskeletal - No midline or bilateral ttp. Full ROM. Skin - Warm/Dry Neurological - Alert & oriented x3, +horizontal nystagmus CN II-XII otherwise in tact, 5/5 strength BUE and BLE, negative pronator drift, downgoing babinski, normal finger to nose testing, negative Romberg, gait without ataxia, decreased sensation BLE Psychological - Appropriate affect Results Labs CBC and Chem 7: 08/02/22 06:16 08/02/22 06:16 Labs: Laboratory Results - last 24 hr 08/02/22 08/02/22 08/02/22 05:37 06:16 06:16 MCV 90.9 MCH 31.5 MCHC 34.7 RDW 11.2 Plt Count 178 MPV 11.7 Immature Gran % (Auto) 0.3 Neut % (Auto) 67.2 Lymph % (Auto) 20.3 [place] % (Auto) 9.6 Eos % (Auto) 2.2 Baso % (Auto) 0.4 Lymph # (Auto) 1.6 [place] # (Auto) 0.7 Eos # (Auto) 0.2 Baso # (Auto) 0.0 Abs Immat Gran (auto) 0.02 Absolute Neuts (auto) 5.2 Absolute Nucleated RBC 0.000 Nucleated RBC % (auto) 0.0 Anion Gap 15 Estim Creat Clear Calc 90.0 Estimated GFR > 60 POC Glucose 291 H Random Glucose 327 H Calcium 9.1 Total Bilirubin 1.1 H AST 10 ALT 13 Alkaline Phosphatase 136 H Total Protein 6.4 L Albumin 3.8 Triglycerides 91 Cholesterol 208 LDL Cholesterol, Calc 127 HDL Cholesterol 63 COVID-19 ([facility]) COVID-19 Clin Com 08/02/22 08/02/22 10:39 12:00 MCV MCH MCHC RDW Plt Count MPV Immature Gran % (Auto) Neut % (Auto) Lymph % (Auto) [place] % (Auto) Eos % (Auto) Baso % (Auto) Lymph # (Auto) [place] # (Auto) Eos # (Auto) Baso # (Auto) Abs Immat Gran (auto) Absolute Neuts (auto) Absolute Nucleated RBC Nucleated RBC % (auto) Anion Gap Estim Creat Clear Calc Estimated GFR POC Glucose 247 H Random Glucose Calcium Total Bilirubin AST ALT Alkaline Phosphatase Total Protein Albumin Triglycerides Cholesterol LDL Cholesterol, Calc HDL Cholesterol COVID-19 ([facility]) Negative COVID-19 Clin Com See Note Imaging Radiologist's Impressions: Impressions Head/Neck CTA 08/02/22 12:33 IMPRESSION: Unremarkable examination in that there is no stenosis of the cervical carotid or vertebral arteries. No intracranial large vessel occlusion. There is no evidence of acute territorial infarct or hemorrhage. No abnormal intracranial mass or enhancement. Assessment and Plan (1) Headache: Status: Acute (2) Acute left-sided weakness: Status: Acute (3) Dizziness: Status: Acute Plan 51-year-old male Georgian-speaking patient with history of insulin-dependent type 2 diabetes non compliant with diet with hyperglycemia, diabetic retinopathy, and hyperlipidemia to be observed for multiple symptoms of varying duration including occipital h/a, left arm weakness, dizziness, blurred vision of unclear etiology and significance at this time. #Headache with intermittent vertigo, Left extremity weakness, and LUE radiculopathy -Left occipital/parietal H/A x2 desribed as throbbing/pressure -DDX to include CVA, typical migraine, vestibular migraine, tension headache, hyperglycemia -Bps controlled -CTA head/neck negative -MRI brain pending r/o CVA -Continue statin, add asa -Neuro consult placed -Sumatriptan ordered and fioricet #Dizziness -Most consistent with vertigo given symptoms of spinning and off balance -+horiztonal nystagmus, negative romberg, normal finger to nose testing -MRI pending -Orthostatics pending -PT consulted #LUE weakness/radiculopathy- subacute ongoing 2+ weeks -subjective, no weakness on exam -MRI brain pending r/o CVA. 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 MRI brain pending #falls -No LOC/head injury -likely secondary to vertigo and peripheral neuropathy from DM -PT consulted #Uncontrolled insulin dependent type 2 diabetes noncompliant with hyperglycemia -Likely responsible for peripheral neuropathy, blurred vision (retinopathy history) -POC glucose -Diabetic diet -Dose adjusted lantus -Humalog SSI -Hgb A1c pending -Would benefit from outpt diabetes education #HLD -Continue statin #epistaxis -likely secondary to nasal dryness following URI -no active bleeding DVT prophylaxis- mechanical Full code Quality Stroke Does the patient have a stroke diagnosis?: No VTE Prior VTE?: No VTE Risk Level:: Medical - moderate - high VTE Device Contraindication: N/A - Device Ordered VTE Drug Contraindication: Treatment Not Tolerated
--- NOTE | 2022-08-02 15:27 | PHA.MEDREC ---
Pharmacy Consult ? Medication Reconciliation Pharmacy has completed the medication reconciliation. Spoke witth patient and family member. Family member went to get medication bottles.
[2022-08-02 15:29] LABS: Glucose, Whole Blood 190 mg/dL (60-115)
[2022-08-02] MEDS: Insulin Lispro 100 UNIT/ML 3 ML VIAL SUBCUT ×2 (15:36→21:25)
[2022-08-02] MEDS: 0.9 % Sodium Chloride Flush 3 ML SYRINGE IVFLUSH (15:39)
[2022-08-02] MEDS: Butalb/Acetamin/Caff 50/325/40 TABLET 1 TAB PO (15:39)
[2022-08-02] MEDS: Aspirin Enteric Coated 81 MG TABLET.DR PO (15:39)
[2022-08-02 15:59] LABS: Appearance Urine Clear; Color Urine Yellow; Glucose Urine UA >=1000 mg/dL (Negative); Leukocyte Esterase Urine Negative (Negative); Nitrite Urine Negative (Negative); PH 5.5 (5.0-9.0); Specific Gravity - Urine >= 1.030 (1.005-1.025); UMIC TRIGGER UACC YES; Urine Blood Negative (Negative); Urine Ketones Trace mg/dL (Negative); Urine Protein Negative (Neg-Trace)
[2022-08-02 16:01] LABS: Bacteria Urine None Seen (None Seen); Hyaline Casts Urine 0-2 /LPF (0-2); RBC Urine 0-2 /HPF (0-2); Squamous Epithelial Cell Urine 0-2 /HPF (0-2); WBC Urine 0-5 /HPF (0-5)
[2022-08-02 16:06] LABS: Bilirubin Direct 0.4 mg/dL (0.0-0.5)
[2022-08-02 16:26] LABS: Thyroid Stimulating Hormone 1.35 uIU/mL (0.32-4.0)
[2022-08-02 16:38] LABS: Vitamin B12 736 pg/mL (200-900)
[2022-08-02 20:44] LABS: Glucose, Whole Blood 354 mg/dL (60-115)
[2022-08-02] MEDS: Atorvastatin Calcium 40 MG TABLET PO (21:24)
[2022-08-02] MEDS: Multivitamin TABLET 1 TAB PO (21:25)
[2022-08-03] MEDS: 0.9 % Sodium Chloride Flush 3 ML SYRINGE IVFLUSH ×2 (02:23→07:46)
[2022-08-03 05:01] VITALS: BP 112/66; PULSE 64; RESP 16; TEMP 36.7; O2SAT 92
[2022-08-03 05:04] LABS: Cholesterol 202 mg/dL; HDL Cholesterol 55 mg/dL; LDL Cholesterol Calculated 133 mg/dl; Triglycerides 73 mg/dL
[2022-08-03 05:10] LABS: Estimated Average Glucose 306 mg/dL; Hemoglobin A1c % 12.3 %
[2022-08-03 07:34] LABS: Glucose, Whole Blood 235 mg/dL (60-115)
[2022-08-03] MEDS: Insulin Lispro 100 UNIT/ML 3 ML VIAL SUBCUT ×2 (07:42→13:28)
[2022-08-03] MEDS: Aspirin Enteric Coated 81 MG TABLET.DR PO (07:42)
[2022-08-03] MEDS: Insulin Glargine,Hum.rec.anlog 100 UNIT/ML 10 ML VIAL 20 UNIT SUBCUT (07:42)
[2022-08-03] MEDS: Acetaminophen 325 MG TABLET 650 MG PO (07:45)
[2022-08-03 08:10] VITALS: BP 114/70; PULSE 67; RESP 10; TEMP 36.7; O2SAT 97
[2022-08-03 09:51] VITALS: BP 114/70; PULSE 67; O2SAT 97
--- NOTE | 2022-08-03 09:56 | PM.NEUROCN ---
History of Present Illness Data of Consult Service Date: 08/03/22 Primary Care Provider: Kylee Bui MD [facility] Reason for consult: HEADACHE AND LEFT-SIDED NUMBNESS 51 YEARS OLD MAN WITH DIABETES THAT WAS NOT WELL CONTROLLED CAME TO HOSPITAL FOR FEW DAYS OF LEFT-SIDED THROBBING HEADACHE AND LEFT-SIDED NUMBNESS AND WEAKNESS. DESPITE THAT HE WAS ABLE TO WALK AROUND AND DO DIFFERENT THINGS. THIS MORNING HEADACHE WAS MUCH BETTER AND WEAKNESS WAS RESOLVED. HE DID NOT HAVE ANY RECENT TRAUMA OR SEIZURE. HE DID NOT HAVE ANY RECENT COLD OR FLU-LIKE ILLNESS. THERE WAS NO CHANGE IN MENTAL STATUS. HE STATED THAT USUALLY HE DID NOT HAVE MANY HEADACHES. THERE WAS NO VISUAL SYMPTOM OR SPEECH OR LANGUAGE DIFFICULTY. Review of Systems Review of Systems: REPORTED IN HPI [facility] Past Medical History Medical History Diabetes Dyslipidemia [facility] (current) use of insulin Nausea Poor compliance Family History Family History Father Stroke Mother No problems noted. Sister Diabetes Surgical History Surgical History No pertinent past surgical history Social History Social History Household Members: Spouse Housing: House Do you presently have visiting nurse or other home services: No Alcohol intake: never Patient Tobacco Use Status: Never used Tobacco e-Cigarette/Vaping Use: Never Used Second Hand Smoke Exposure: No Advance Directives: No Advance Directives Information Provided: Yes service: No Current occupational status: unemployed Meds Allergies Allergy/AdvReac Type Severity Reaction Status Date / Time No Known Allergies Allergy Verified 10/20/21 17:29 [No Known Allergies*] Active Medications: Current Medications Acetaminophen (Acetaminophen 325 Mg Tablet) 650 mg PO Q6H PRN PRN Reason: Pain, Mild (Pain Scale 1-3) Last Admin: 08/03/22 07:45 Dose: 650 mg Aspirin (Aspirin Enteric Coated 81 Mg Tablet.) 81 mg PO DAILY [facility] Last Admin: 08/03/22 07:42 Dose: 81 mg Atorvastatin Calcium (Atorvastatin Calcium 40 Mg Tablet) 40 mg PO BEDTIME [facility] Last Admin: 08/02/22 21:24 Dose: 40 mg Dextrose (Dextrose 50 % 25 Gm/50 Ml Syringe) 25 gm IVPUSH Q15M PRN; Protocol PRN Reason: per Hypoglycemia Standing Ord. Docusate Sodium (Docusate Sodium 100 Mg Capsule) 100 mg PO DAILY PRN PRN Reason: Constipation Glucose (Glucose Gel 15 Gm Gel..Gram.) 15 gm PO Q15M PRN; Protocol PRN Reason: per Hypoglycemia Standing Ord. Insulin Glargine (Insulin Glargine,Hum.Rec.Anlog 100 Unit/Ml 10 Ml Vial) 20 unit SUBCUT DAILY [facility] Last Admin: 08/03/22 07:42 Dose: 20 unit Insulin Human Lispro (Insulin Lispro 100 Unit/Ml 3 Ml Vial) 0 unit SUBCUT QIDACHS [facility]; Protocol Last Admin: 08/03/22 07:42 Dose: 4 unit Multivitamins/Vitamin C (Multivitamin Tablet) 1 tab PO BEDTIME [facility] Last Admin: 08/02/22 21:25 Dose: 1 tab Ondansetron HCl (Ondansetron Hcl 4 Mg/2 Ml Vial) 4 mg IVPUSH Q8H PRN PRN Reason: Nausea and Vomiting Pharmacy Consult (Consult Rx Perform Med Rec) 1 each MISCELLANE ONCE PRN PRN Reason: Consult order Sodium Chloride (0.9 % Sodium Chloride Flush 3 Ml Syringe) 3 ml IVFLUSH QSHIFT [facility] Last Admin: 08/03/22 07:46 Dose: 3 ml Sumatriptan Succinate (Sumatriptan Succinate 50 Mg Tablet) 50 mg PO DAILY MRX1 PRN PRN Reason: Headache Home Medications Medication Instructions Recorded Confirmed Last Taken Type insulin glargine 100 unit/mL (3 26 unit subcut DAILY 08/02/22 08/02/22 Unknown History mL) subcutaneous pen (Lantus Solostar U-100 Insulin) Physical Exam Vital Signs: Vital Signs: Last Vital Signs Temp 98.0 F 08/03/22 08:10 Pulse 67 08/03/22 08:10 Resp 10 L 08/03/22 08:10 BP 114/70 08/03/22 08:10 Pulse Ox 97 08/03/22 08:10 O2 Del Method 08/03/22 08:10 BMI result Body Mass Index 24.5 Neuro: Other: HE WAS ALERT AND AWAKE WITH NORMAL SPONTANEITY OF SPEECH FLUENCY COMPREHENSION AND AFFECT. INTERVIEW WAS PERFORMED WITH THE HELP OF AN CEILING CLEANER. FACE WAS SYMMETRICAL. VISUAL RAMOS ARE FULL. TONGUE WAS MIDLINE. THERE WAS NO PRONATOR DRIFT. VISUAL FIELD EXAMINATION DID NOT REVEAL ANY SIGNIFICANT FINDING. [id number] TESTING WAS NORMAL. DEEP TENDON REFLEXES WERE TRACE TO ABSENT WITH FLEXOR PLANTARS. THERE WAS NO FOCAL ARM OR LEG WEAKNESS. THERE WAS NO DRIFT IN ARMS OR LEGS. SPEECH WAS NORMAL. Results Labs CBC & Chem 7: 08/02/22 06:16 08/02/22 06:16 Labs: Liver Function 08/02/22 Range/Units 06:16 Direct Bilirubin 0.4 (0.0-0.5) mg/dL Urine 08/02/22 Range/Units 15:50 Urine Color Yellow Urine Appearance Clear Urine pH 5.5 (5.0-9.0) Ur Specific [place] >= 1.030 H (1.005-1.025) Urine Protein Negative (Neg-Trace) mg/dL Urine Glucose (UA) >=1000 H (Negative) mg/dL Noncontrast MRI of brain did not reveal any acute or chronic brain pathology. Right maxillary sinus opacity was noted. CTA of brain and neck did not reveal any vascular lesion. Assessment and Plan (1) Migraine equivalent syndrome: Status: Acute 51 years old man with few days of left-sided throbbing headache localized to back of the head associated with feeling of left-sided numbness and weakness but no obvious disability from numbness or weakness. This morning symptoms were almost resolved. There was no other associated symptom. Examination was nonfocal in imaging with brain MRI and CTA did not reveal any significant pathology. Overall clinical picture was suggestive of migraine and complicated migraine. At this time appropriate management of hyperglycemia and p.r.n. treatment for migraine with the medicine like naproxen or Fioricet is recommended. He should have an outpatient ENT evaluation for his right maxillary sinus finding. (2) Uncontrolled diabetes mellitus: Status: Acute (3) Complicated migraine: Status: Acute Procedures Date of Service Date of Service: 08/03/22
[2022-08-03 13:20] LABS: Glucose, Whole Blood 165 mg/dL (60-115)
--- NOTE | 2022-08-03 13:34 | PM.DS ---
DS: Providers Provider Date of Service: 08/03/22 Date of admission: 08/02/22 14:48 Primary care physician: Kylee Bui MD Consults: 08/02/22 14:48 Consult to Neurology Routine Consulting Provider: [facility] Reason for consultation: left sided weakness, blurred vision DS: Diagnosis Discharge Diagnosis (1) Migraine equivalent syndrome: Status: Acute (2) Uncontrolled diabetes mellitus: Status: Acute (3) Complicated migraine: Status: Acute DS: Summary Hospital Course Hospital Course: 51-year-old male Albanian-speaking patient with history of insulin-dependent type 2 diabetes non compliant with diet with hyperglycemia,? diabetic retinopathy, and hyperlipidemia presented to the ED earlier today for evaluation of multiple symptoms.? Is reporting for the last week he has had constant pressure and throbbing in the left occipital/parietal aspect of the head.? Denies worst headache of his life.? There is no associated nausea / vomiting.? He is also endorsing blurred vision but states this has been going on for 3 years and was previously receiving injections for retinopathy. he is also reporting weakness in the left extremities with at least 3 falls in recent weeks.? States he fell backwards sitting on to the buttock and denies any head injury or loss of consciousness.? He states that the leg weakness has been longer standing and does endorse chronic low back pain.? States the weakness in the left arm / hand has been ongoing for about 2 weeks.? States weakness was present prior to the falls.? he has had episodes of dizziness described as spinning sensation and feeling of being off balance as exacerbated by head movements.? There has also been several episodes of nose bleeds that have stopped spontaneously with recent URI with rhinorrhea and congestion.? 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 In addition to the weakness in the left arm he endorses radicular pain from the left side of the neck into the shoulder and arm.? Denies any paresthesias.? Denies any syncope. In the ED, VSS.? Head/ neck CTA unremarkable without any stenosis of the cervical carotid or vertebral arteries.? No intracranial large vessel occlusion.? No evidence of acute infarct or hemorrhage.? No abnormal intracranial mass or enhancement.? Hematology studies unremarkable. Renal function/electrolytes normal. Glucose 247-327. Hgb A1c pending.? total cholesterol 208, LDL 127, HDL 63.? EKG showing NSR, rate [address] / T-wave abnormalities. Hospital course: Patient came to the hospital with multiple nonspecific complaints including headaches, seen by Neurology -thought to be migraine headache: Started on Fioricet limited supply was given to the patient, further management outpatient with PCP. No pain in the arm or weakness this morning. CT head and MRI seems fine. seen by PT-does not need PT. Uncontrolled diabetes: Patient was given detailed diabetic education and diet Education, keep fingerstick reading diary, also compliance with medication. Lantus adjusted. Patient may benefit from and outpatient endocrinology evaluation. blurry vision(or retinopathy)-vision seems better , near to baseline (patient possibly has history ? dm retinopathy- he was saying that he follows up with the tourism radio presenter for eye injections so patient is to follow-up with ophthalmology outpatient. Further management out patiently with PCP. If continue to have a headache consider outpatient neurology follow-up. Above management discussed with the patient in detail length she understand and in agreement with the above plan, time spent 50 minutes and 50% time spent on counseling. Significant findings: As above. Procedures performed: None. Treatment and response: As above. Complications: None. Time Spent with Patient Time attestation: Total time spent providing and/or coordinating discharge services: Discharge coordination time: Greater than 30 minutes Quality: Safe Use of Opioids Does Pt have an Active Cancer Diagnosis on the Problem List?: No Quality: Stroke Does the patient have a stroke diagnosis?: No Physical Exam Vital Signs: Vital Signs: Last Vital Signs Temp 98.0 F 08/03/22 08:10 Pulse 67 08/03/22 09:51 Resp 10 L 08/03/22 08:10 BP 114/70 08/03/22 09:51 Pulse Ox 97 08/03/22 09:51 O2 Del Method 08/03/22 08:10 BMI result Body Mass Index 24.5 Appearance: Alert.? Oriented X3.? not in distress,headaches and dizziness seems to be improved..? cvs: rrr, [id number] , no murmur res: clear to auscultation ,no rhonchii or wheezing abd: no rebound or guarding ,nt, bs present. ext pulses present , no cyanosis . neuro: axo3 , nonfocal. DS: Data Data Completed and Pending Labs on day of discharge: Laboratory Results - last 24 hr 08/02/22 08/02/22 08/02/22 06:16 06:16 06:16 POC Glucose Estimat Average Glucose 306 Hemoglobin A1c % 12.3 Direct Bilirubin 0.4 Triglycerides Cholesterol LDL Cholesterol, Calc HDL Cholesterol Vitamin B12 Cancelled TSH 1.35 Urine Color Urine Appearance Urine pH Ur Specific [place] Urine Protein Urine Glucose (UA) Urine Ketones Urine Blood Urine Nitrite Ur Leukocyte Esterase Urine RBC Urine WBC Ur Squamous Epith Cells Urine Bacteria Hyaline Casts 08/02/22 08/02/22 08/02/22 06:16 15:25 15:50 POC Glucose 190 H Estimat Average Glucose Hemoglobin A1c % Direct Bilirubin Triglycerides Cholesterol LDL Cholesterol, Calc HDL Cholesterol Vitamin B12 736 TSH Urine Color Yellow Urine Appearance Clear Urine pH 5.5 Ur Specific [place] >= 1.030 H Urine Protein Negative Urine Glucose (UA) >=1000 H Urine Ketones Trace Urine Blood Negative Urine Nitrite Negative Ur Leukocyte Esterase Negative Urine RBC 0-2 Urine WBC 0-5 Ur Squamous Epith Cells 0-2 Urine Bacteria None Seen Hyaline Casts 0-2 08/02/22 08/03/22 08/03/22 20:40 04:32 07:19 POC Glucose 354 H* 235 H Estimat Average Glucose Hemoglobin A1c % Direct Bilirubin Triglycerides 73 Cholesterol 202 LDL Cholesterol, Calc 133 HDL Cholesterol 55 Vitamin B12 TSH Urine Color Urine Appearance Urine pH Ur Specific [place] Urine Protein Urine Glucose (UA) Urine Ketones Urine Blood Urine Nitrite Ur Leukocyte Esterase Urine RBC Urine WBC Ur Squamous Epith Cells Urine Bacteria Hyaline Casts 08/03/22 12:55 POC Glucose 165 H Estimat Average Glucose Hemoglobin A1c % Direct Bilirubin Triglycerides Cholesterol LDL Cholesterol, Calc HDL Cholesterol Vitamin B12 TSH Urine Color Urine Appearance Urine pH Ur Specific [place] Urine Protein Urine Glucose (UA) Urine Ketones Urine Blood Urine Nitrite Ur Leukocyte Esterase Urine RBC Urine WBC Ur Squamous Epith Cells Urine Bacteria Hyaline Casts Discharge Plan Discharge Anticipated Discharge Date/Time: 08/03/22 13:22 Patient Disposition: Home, Self-Care Discharge Diagnosis: migrane headaches Referrals: Kylee Louis MD [Primary Care Provider] - 1 Week Discharge Medications: New qkrxgtbryn-icwrjzfeltest-ebbg 50-325-40 mg Tablet 1 tab PO Q4H PRN (Reason: Headache) Qty: 20 0RF docusate sodium 100 mg Capsule 100 mg PO DAILY PRN (Reason: Constipation) Qty: 30 0RF Continued atorvastatin 40 mg tablet 40 mg PO BEDTIME 90 Days Qty: 90 3RF (DME) pen needle, diabetic [Easy Touch] 31 gauge x 3/16 needle See Rx Instructions .ROUTE .MEDSUPPLY Qty: 100 11RF Rx Instructions: Use 1 needle once a day metformin 1,000 mg tablet 1,000 mg PO BID 90 Days Qty: 180 2RF Changed insulin glargine [Lantus Solostar U-100 Insulin] 100 unit/mL (3 mL) insulin pen 28 unit subcut DAILY Qty: 15 0RF Discharge Orders: Discharge Order (Routine); Ordered 08/03/22 Ordered By: Sourav Puckett Diet: Advance to usual diet Activity on Discharge: As tolerated Stand Alone Forms: Patient Portal Discharge page Care Plan Goals: Patient came to the hospital with multiple nonspecific complaints including headaches, seen by Neurology -thought to be migraine headache: Started on Fioricet limited supply was given to the patient, further management outpatient with PCP. Uncontrolled diabetes: Patient was given detailed diabetic education and diet Education, keep fingerstick reading diary, also compliance with medication. Lantus adjusted. Further management out patiently with PCP. If continue to have a headache consider outpatient neurology follow-up. Health Concerns: As above. Plan of Treatment: As above. Assessment: As above. Patient Instructions: Migraine Headache (ED), Acute Headache (DC), Type 2 Diabetes Management for Adults (DC)
--- NOTE | 2022-08-03 13:42 | W.MHC.F2F ---
Service Date Service Date: 08/03/22 Encounter Date of encounter: 08/03/22 Reasons for Services Signs and symptoms assessed: Migraine, dizziness, uncontrolled diabetes Reason for penitentiary: neurological assessment, medication management, medication treatment and teach disease management MD Overseeing Care: Kylee Bui Homebound: Leaving the home is medically contraindicated at this time without the asist of a device and/or another person due th the listed conditions above and below. Reason homebound: weakness related to hospital stay Homebound supporting statement: Patient has multiple comorbidities including uncontrolled diabetes as well as generally weak post hospitalization need help with medication management as well as Education diabetes gaines as well as going to the appointments. Certification: Based on the above findings, I certify that this patient is confined to the home and needs intermittent penitentiary care, physical therapy and/or speech therapy, or continues to need occupational therapy. The patient is under my care, and I have initiated the establishment of the plan of care. The patient will be followed by a physician who will periodically review the plan of care.
--- NOTE | 2022-08-03 16:22 | MHC.CM.PN ---
PT DISCHARGED TODAY WITH ORDER FOR [facility] REFERRAL MADE TO [facility] HAS RESPONDED THAT THEY ARE WAITING FOR A RESPONSE FROM JIMENEZ SPEARS TO CONFIRM SHE WILL SIGN ORDERS PT HAS NOT BEEN SEEN SINCE OCTOBER OF 2021. AWAITING CONFIRMATION
== END 2022-08-03 15:58 | disposition home or self-care (01) | DRG 54 ==
LOC: HO.ED 10:37 → HO.EDOVER 15:01
PROVIDERS: Physician Assistant; Admitting Provider Physician Assistant; Emergency Provider Emergency Medicine; PCP Internal Medicine; Visit Provider Internal Medicine
DX: G43.109 Migraine with aura, not intractable, without status migrainosus (principal); E11.42 Type 2 diabetes mellitus with diabetic polyneuropathy; E11.319 Type 2 diabetes mellitus with unspecified diabetic retinopathy without macular edema; E11.65 Type 2 diabetes mellitus with hyperglycemia; E78.5 Hyperlipidemia, unspecified; R04.0 Epistaxis; H55.00 Unspecified nystagmus; Z20.822 Contact with and (suspected) exposure to COVID-19; Z91.119 Patient's noncompliance with dietary regimen due to unspecified reason; Z79.4 Long term (current) use of insulin; Z79.84 Long term (current) use of oral hypoglycemic drugs; Z79.899 Other long term (current) drug therapy
CPT/HCPCS: 36415; 70496; 70498; 70551; 80053; 80061; 81001; 82248; 82607; 82947; 83036; 84443; 85025; 87635; 93005; 97161; 97165; 99218; 99285; Q9967

== ENCOUNTER → 2022-09-24 15:34 | Outpatient (BNVA) | payer OTHER, SELFPAY | PROVIDERS: PCP Internal Medicine; Visit Provider Internal Medicine Endocrinology, Diabetes & Metabolism | DX: E11.9 Type 2 diabetes mellitus without complications (principal); E78.5 Hyperlipidemia, unspecified; Z91.14 Patient's other noncompliance with medication regimen | CPT/HCPCS: 82947; 99212 ==

== ENCOUNTER 2022-09-26 16:20 | Emergency (ER) | payer OTHER, SELFPAY ==
--- NOTE | ~2022-09-26 | XR_ITS ---
EXAMINATION: XR CHEST CLINICAL INFORMATION: Cough x1 week COMPARISON: 10/20/2021 TECHNIQUE: 2 views of the chest were obtained. FINDINGS: No significant abnormality is noted involving the heart, lungs, mediastinum, bony thorax or soft tissues. A small bone island is present in the left fourth rib. XR/XR chest 2V IMPRESSION: Unremarkable examination.
--- NOTE | 2022-09-26 16:35 | ED.URI ---
HPI - URI/Sore Throat General Chief Complaint: Upper Respiratory Symptoms Stated Complaint: cough Time Seen by Provider: 09/26/22 18:00 Source: patient and family ( at bedside) Mode of arrival: ambulatory Limitations: language barrier (Bangladeshi-speaking) History of Present Illness HPI Narrative: 51yoF c PMhx of DM presenting to the ED with complaints of 1 week of a cough. Reports his has similar symptoms. He denies recent travel or any other sick contacts. He denies any fevers, dizziness, nasal congestion/rhinorrhea, sore throat, trouble swallowing or breathing, chest pain or shortness of breath, nausea/vomiting/diarrhea abdominal pain, lower extremity edema or calf tenderness or any other symptoms complaints or concerns at this time MD elicited complaint: cough Onset (ago): week(s) (1) Consistency: constant and progressively worsening Severity: mild Description of mucous: clear, watery and yellow Able to tolerate fluids by mouth: Yes Exacerbating factors: nothing Relieving factors: nothing Context: sick contacts Associated symptoms: denies other symptoms Treatments prior to arrival: none Related Data Home Medications Medication Instructions Recorded Confirmed blood sugar diagnostic (FreeStyle 08/19/22 09/24/22 Lite Strips) Previous Rx's Medication Instructions Recorded lrylxizddx-wosajgqkixtsm-efxzzfvg 1 tab PO Q4H PRN Headache #20 tabs 08/03/22 50 mg-325 mg-40 mg tablet docusate sodium 100 mg capsule 100 mg PO DAILY PRN Constipation 08/03/22 #30 caps metformin 1,000 mg tablet 1,000 mg PO BID 90 days #180 tabs 08/03/22 pen needle, diabetic 31 gauge x #100 ea 08/11/22 3/16 (Easy Touch) atorvastatin 40 mg tablet 40 mg PO BEDTIME 90 days #90 tabs 08/19/22 insulin glargine 100 unit/mL (3 32 unit (0.32 mL) subcut DAILY 90 08/19/22 mL) subcutaneous pen (Lan #28.8 mL Solostar U-100 Insulin) codeine 10 mg-guaifenesin 100 mg/5 5 ml PO Q6H PRN cold symptoms #120 09/26/22 mL oral liquid (Guaifenesin AC) mL cyclobenzaprine 10 mg tablet 10 mg PO Q8H #14 tabs 09/26/22 Allergies Allergy/AdvReac Type Severity Reaction Status Date / Time No Known Allergies Allergy Verified 09/26/22 16:36 [No Known Allergies*] Review of Systems Review of Systems: Constitutional : No Weight loss, No Fever, No Chills, No Night Sweats, No Fatigue, No Malaise ENT/Mouth : No Hearing loss, No Ear Pain, No Nasal Congestion, No Sinus Pain, No Hoarseness, No sore throat, No Rhinorrhea, No Swallowing Difficulty Eyes: No Eye Pain, No Swelling, No Redness, No Foreign Body, No Discharge, No Vision Changes Cardiovascular : No Chest Pain, No SOB, No Dyspnea on Exertion, No Orthopnea, No Edema, No Palpitations Respiratory : + Cough, No Sputum, No Wheezing, No Smoke Exposure, No Dyspnea Gastrointestinal : No Nausea, No Vomiting, No Diarrhea, No Constipation, No abdominal Pain, No Hematochezia, No Melena Genitourinary : no irregular bleeding, No Dysuria, No Urinary Frequency, No Hematuria, No Urinary Incontinence, No Urgency, No Flank Pain, No Urinary Flow Changes, No Hesitancy Musculoskeletal : No joint pain, No Myalgias, No Joint Swelling Skin : No Skin Lesions, No rash Neuro : No Weakness, No Numbness, No Paresthesias, No Loss of Consciousness, No Dizziness, No Headache Psych : No Anxiety/Panic, No Depression, No SI/HI/AH/VH, No Social Issues, Heme/Lymph: No Bruising, No Bleeding,No Lymphadenopathy Endocrine : No Polyuria, No Polydipsia, No Temperature Intolerance Yes all other systems are reviewed and are negative [facility] Past Medical History Attestation statement: The following information was validated with the patient. 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 Sister Diabetes Social History Social History Household Members: Spouse Housing: House Do you presently have visiting nurse or other home services: No Alcohol intake: never Patient Tobacco Use Status: Never used Tobacco e-Cigarette/Vaping Use: Never Used Second Hand Smoke Exposure: No Advance Directives: No Advance Directives Information Provided: Yes service: No Current occupational status: unemployed Cognitive needs: No Hearing needs: No Vision needs: No Physical Exam Vital Signs: Vital Signs: Last Vital Signs Temp 97.3 F 09/26/22 16:36 Pulse 74 09/26/22 16:36 Resp 18 09/26/22 16:36 BP 128/71 09/26/22 16:36 Pulse Ox 99 09/26/22 16:36 O2 Del Method 09/26/22 16:36 BMI result Body Mass Index 25.5 Vital signs reviewed. Blood pressure normal. Pulse normal. Respiration normal. Oxygen normal. Temperature normal. Appearance: Alert. Oriented X3. No acute distress. Head: Normal external exam. Normocephalic. Atraumatic. Eyes: PERRLA. EOMI. Conjunctiva and sclera normal. Eyelids normal. ENT: EAC normal. TM's Normal. Pharynx normal. Uvula midline. Moist mucous membranes. No lesions/ulcerations or masses noted on the tongue. Normal voice. No trismus noted. No drooling noted. No muffled voice noted. Neck: Normal inspection. Neck supple. FROM. No adenopathy. Thyroid Normal. No meningeal signs. CVS: Normal heart rate and rhythm. Heart sound normal. Pulses normal throughout. No murmurs/rales/gallops. Respiratory: No respiratory distress. Painless inspiration. Breath sounds normal. No wheezes/rales/rhonchi noted. Chest nontender. No accessory muscle usage noted or decreased air movement noted. Abdomen: Soft and nontender. Back: Full range of motion noted. Nontender. Skin: Skin warm and dry. Normal skin color. Normal skin turgor. No rashes/lesions/lacerations noted. Extremities: Extremities exhibit normal range of motion and nontender. Neuro: Oriented X 3. No motor deficit. No sensory deficit. Reflexes normal. Normal steady gait. No focal neuro deficits noted. CN's II-XII intact bilaterally? Vascular: + radial pulses. Normal cap refill. No cyanosis noted to upper extremity nails Course Course Course Narrative: RME - 51yoF c PMhx of DM presenting to the ED with complaints of 1 week of a cough. Reports his has similar symptoms. He denies recent travel or any other sick contacts. He denies any fevers, dizziness, nasal congestion/rhinorrhea, sore throat, trouble swallowing or breathing, chest pain or shortness of breath, nausea/vomiting/diarrhea abdominal pain, lower extremity edema or calf tenderness or any other symptoms complaints or concerns at this time Plan: Patient is stable. He will go back to the waiting room. I ordered a chest x-ray, COVID swab and influenza swab. Patient will go to [facility] to be evaluated. Reevaluation(s) Reevaluation #1: Patient negative for COVID/flu. His just tested positive for RSV she is in the room with him. Therefore at this time will DC home with cough medicine and symptomatic treatment instructions return if any new worsening symptoms follow up with primary care provider. Patient at bedside understand agree this plan. Time: 18:08 Medical Decision Making Lab Data MDM Lab Attestation statement: I reviewed the patient's lab results. Labs: Lab Results 09/26/22 09/26/22 Range/Units 17:08 17:08 COVID-19 (PENELOPE) Negative (Negative) COVID-19 Clin Com See Note Influenza Type A (LULA) Negative (Negative) Influenza Type B (LULA) Negative (Negative) Influenza A & B Note See Note Independent Interpretation Interpretation: CXR FINDINGS: No significant abnormality is noted involving the heart, lungs, mediastinum, bony thorax or soft tissues. A small bone island is present in the left fourth rib. XR/XR chest 2V IMPRESSION: Unremarkable examination. Discharge Plan Discharge Clinical Impression: Acute viral syndrome, RSV exposure Patient Disposition: Home, Self-Care Instructions: Respiratory Syncytial Virus (ED), Viral Syndrome (ED) Additional Instructions: Follow up with your primary care provider. Return to the emergency department immediately if your symptoms worsen or if you develop any dizziness, shortness of breath, difficulty breathing, chest pain, blurry vision, loss of vision, nausea, vomiting, abdominal pain, fever, chills, back pain, or any other complaints. Loulou un seguimiento con bynum proveedor de atenci?n primaria. Regrese al departamento de emergencias de inmediato si jayro s?ntomas empeoran o si presenta mareos, falta de aire, dificultad para respirar, dolor de pecho, visi?n borrosa, p?rdida de la visi?n, n?useas, v?mitos, dolor abdominal, fiebre, escalofr?os, dolor de espalda o cualquier otras quejas. Prescriptions: New cyclobenzaprine 10 mg tablet 10 mg PO Q8H Qty: 14 0RF codeine-guaifenesin [Guaifenesin AC] 10-100 mg/5 mL liquid 5 ml PO Q6H PRN (Reason: cold symptoms) Qty: 120 0RF No Action metformin 1,000 mg tablet 1,000 mg PO BID 90 Days Qty: 180 2RF (DME) pen needle, diabetic [Easy Touch] 31 gauge x 3/16 needle See Rx Instructions .ROUTE .MEDSUPPLY Qty: 100 11RF Rx Instructions: Use 1 needle once a day kpqczbwpty-ocrrmukijpopq-avks 50-325-40 mg Tablet 1 tab PO Q4H PRN (Reason: Headache) Qty: 20 0RF docusate sodium 100 mg Capsule 100 mg PO DAILY PRN (Reason: Constipation) Qty: 30 0RF (DME) FreeStyle Lite Strips Strip See Rx Instructions .Route Rx Instructions: As directed atorvastatin 40 mg tablet 40 mg PO BEDTIME 90 Days Qty: 90 3RF insulin glargine [Lantus Solostar U-100 Insulin] 100 unit/mL (3 mL) insulin pen 32 unit subcut DAILY 90 Days Qty: 28.8 3RF Referrals: Kylee Louis MD [Primary Care Provider] - 2 days Stand Alone Forms: Work/School Release Interventions: ED Discharge Assessment Last Done: 09/26/22 18:56 Discharge Date/Time: 09/26/22 18:56 Print Language: Bangladeshi
[2022-09-26 16:36] VITALS: BP 128/71; PULSE 74; RESP 18; TEMP 36.3; O2SAT 99; BMI 25.5
[2022-09-26 17:35] LABS: IDNOW Serial# 16C4AD1C
[2022-09-26 17:36] LABS: COVID-19 Test Negative (Negative); Influenza A Negative (Negative); Influenza B2 Negative (Negative)
== END 2022-09-26 18:56 | disposition home or self-care (01) ==
PROVIDERS: Physician Assistant Medical; Emergency Provider Emergency Medicine; PCP Internal Medicine
DX: B34.9 Viral infection, unspecified (principal); Z20.822 Contact with and (suspected) exposure to COVID-19; Z20.828 Contact with and (suspected) exposure to other viral communicable diseases; E11.9 Type 2 diabetes mellitus without complications; E78.5 Hyperlipidemia, unspecified; Z79.4 Long term (current) use of insulin; Z79.02 Long term (current) use of antithrombotics/antiplatelets
CPT/HCPCS: 71046; 87502; 87635; 99282; 99283

== ENCOUNTER 2022-12-15 18:29 | Emergency (ER) | payer OTHER, SELFPAY ==
--- NOTE | 2022-12-15 18:56 | ED.HA ---
HPI - Headache General Chief Complaint: Headache <Antonette Matta CNP - Last Filed: 12/15/22 19:04> Stated Complaint: Migraine <Antonette Matta CNP - Last Filed: 12/15/22 19:04> Time Seen by Provider: 12/15/22 21:10 <Antonette Matta CNP - Last Filed: 12/15/22 19:04> Source: patient <Narinder Gonzalez MD - Last Filed: 12/16/22 05:35> Mode of arrival: ambulatory <Narinder Gonzalez MD - Last Filed: 12/16/22 05:35> Limitations: no limitations <Narinder Gonzalez MD - Last Filed: 12/16/22 05:35> History of Present Illness HPI Narrative: Patient otherwise healthy diabetic been having body aches headache dry cough for last 3 days no other family member sick no fever no chills no urinary symptoms no nausea vomiting no significant shortness of breath patient is saturating 97% room air on arrival patient has not taken his insulin tonight <Narinder Gonzalez MD - Last Filed: 12/16/22 05:35> Related Data Home Medications: Home Medications Medication Instructions Recorded Confirmed blood sugar diagnostic (FreeStyle 08/19/22 09/24/22 Lite Strips) Previous Rx's Medication Instructions Recorded cgmvsoijua-thayzlpfdwfjh-kgbrirbe 1 tab PO Q4H PRN Headache #20 tabs 08/03/22 50 mg-325 mg-40 mg tablet docusate sodium 100 mg capsule 100 mg PO DAILY PRN Constipation 08/03/22 #30 caps metformin 1,000 mg tablet 1,000 mg PO BID 90 days #180 tabs 08/03/22 pen needle, diabetic 31 gauge x #100 ea 08/11/22 3/16 (Easy Touch) atorvastatin 40 mg tablet 40 mg PO BEDTIME 90 days #90 tabs 08/19/22 insulin glargine 100 unit/mL (3 32 unit (0.32 mL) subcut DAILY 90 08/19/22 mL) subcutaneous pen (Lantus days #28.8 mL Solostar U-100 Insulin) codeine 10 mg-guaifenesin 100 mg/5 5 ml PO Q6H PRN cold symptoms #120 09/26/22 mL oral liquid (Guaifenesin AC) mL cyclobenzaprine 10 mg tablet 10 mg PO Q8H #14 tabs 09/26/22 benzonatate 200 mg capsule 200 mg PO TID PRN cough #20 caps 12/15/22 ibuprofen 600 mg tablet 600 mg PO Q6H PRN fever or pain 12/15/22 #30 tabs <Antonette Matta CNP - Last Filed: 12/15/22 19:04> Allergies/Adverse Reactions: Allergies Allergy/AdvReac Type Severity Reaction Status Date / Time No Known Allergies Allergy Verified 09/26/22 16:36 [No Known Allergies*] <Antonette Matta CNP - Last Filed: 12/15/22 19:04> Review of Systems Review of Systems: Constitutional : No Weight loss, No Fever, No Chills ENT/Mouth : No sore throat, No Rhinorrhea Eyes: No Eye Pain, No Swelling Cardiovascular : No Chest Pain, no palpitations Respiratory :+ Cough, No Sputum, no shortness of breath Gastrointestinal : no Nausea, No Vomiting, No Diarrhea, No abdominal Pain, no black stools Genitourinary : No Dysuria, No Urinary Frequency Musculoskeletal : No joint pain, No Myalgias, No Joint Swelling Skin : No Skin Lesions, No rash Neuro : + Weakness, No Numbness, No Dizziness, No Headache Psych : No Anxiety/Panic, No Depression Heme/Lymph: No Bruising, No Lymphadenopathy Endocrine : No Polyuria, No Polydipsia All other systems reviewed and are negative <Narinder Gonzalez MD - Last Filed: 12/16/22 05:35> Yes all other systems are reviewed and are negative <Narinder Gonzalez MD - Last Filed: 12/16/22 05:35> PMFSH Past Medical History Medical History: Medical History 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 Sister Diabetes <Antonette MattaMAIK - Last Filed: 12/15/22 19:04> Social History Social History: Social History Household Members: Spouse Housing: House Do you presently have visiting nurse or other home services: No Alcohol intake: never Patient Tobacco Use Status: Never used Tobacco e-Cigarette/Vaping Use: Never Used Second Hand Smoke Exposure: No Advance Directives: No Advance Directives Information Provided: Yes service: No Current occupational status: unemployed Cognitive needs: No Hearing needs: No Vision needs: No <Atnonette Delarosa MAIK Matta - Last Filed: 12/15/22 19:04> Physical Exam Vital Signs: Vital Signs: Last Vital Signs Temp 97.7 F 12/15/22 18:59 Pulse 74 12/15/22 18:59 Resp 18 12/15/22 18:59 BP 135/84 12/15/22 18:59 Pulse Ox 98 12/15/22 18:59 O2 Del Method 12/15/22 18:59 BMI result Body Mass Index 25.8 <Antonette MattaMAIK - Last Filed: 12/15/22 19:04> Vital Signs: Last Vital Signs Temp 97.7 F 12/15/22 18:59 Pulse 74 12/15/22 18:59 Resp 18 12/15/22 18:59 BP 135/84 12/15/22 18:59 Pulse Ox 98 12/15/22 18:59 O2 Del Method 12/15/22 18:59 BMI result Body Mass Index 25.8 <Narinder Gonzalez MD - Last Filed: 12/16/22 05:35> Appearance: Alert. Oriented X3. No acute distress. Occasional dry cough Eyes: PERRLA, No Nystagmus ENT: Pharynx normal. Oral Mucosa moist Neck: Normal inspection. Neck supple. CVS: Normal heart rate and rhythm. Pulses normal. Respiratory: No respiratory distress. Equal air entry bilateral, no wheezing/rales/rhonchi Abdomen: Soft and nontender. Bowel sounds are present, no mass palpable, no CVA tenderness Skin: Skin warm and dry. Normal skin color. Normal skin turgor. Extremities: No lower extremity edema. No calf tenderness Neuro: Oriented X 3. No motor deficit. No sensory deficit.No cerebellar signs , cranial nerves II-XII intact <Narinder Gonzalez MD - Last Filed: 12/16/22 05:35> Course Course Course Narrative: This is an RME: Additional HPI, ROS, PE not included below will be deferred to primary provider. Patient is a 52-year-old male who presents emergency department for evaluation of headache, bilateral leg pain described as throbbing, cough that began today. <Antonette Matta CNP - Last Filed: 12/15/22 19:04> Medications Administered Discontinued Medications Generic Name Dose Route Start Last Admin Trade Name Freq PRN Reason Stop Dose Admin Benzonatate 200 mg 12/15/22 21:31 12/15/22 22:29 Benzonatate 100 Mg Capsule PO 12/15/22 21:32 200 mg ONCE ONE Administration Ibuprofen 600 mg 12/15/22 21:31 12/15/22 22:29 Ibuprofen 600 Mg Tablet PO 12/15/22 21:32 600 mg ONCE ONE Administration Insulin Human Lispro 12 unit 12/15/22 21:30 12/15/22 22:30 Insulin Lispro 100 Unit/Ml 3 Ml Vial SUBCUT 12/15/22 21:31 12 unit ONCE ONE Administration <Antonette Matta CNP - Last Filed: 12/15/22 19:04> Medications Administered Discontinued Medications Generic Name Dose Route Start Last Admin Trade Name Freq PRN Reason Stop Dose Admin Benzonatate 200 mg 12/15/22 21:31 12/15/22 22:29 Benzonatate 100 Mg Capsule PO 12/15/22 21:32 200 mg ONCE ONE Administration Ibuprofen 600 mg 12/15/22 21:31 12/15/22 22:29 Ibuprofen 600 Mg Tablet PO 12/15/22 21:32 600 mg ONCE ONE Administration Insulin Human Lispro 12 unit 12/15/22 21:30 12/15/22 22:30 Insulin Lispro 100 Unit/Ml 3 Ml Vial SUBCUT 12/15/22 21:31 12 unit ONCE ONE Administration <Narinder Gonzalez MD - Last Filed: 12/16/22 05:35> Medical Decision Making Medical Decision Making MDM Narrative: Patient with influenza B been symptomatic for last 3 days discharge patient home on tesslon ibuprofen advised to drink plenty of fluids <Narinder Gonzalez MD - Last Filed: 12/16/22 05:35> Lab Data [facility] Lab Attestation statement: I reviewed the patient's lab results. <Narinder Gonzalez MD - Last Filed: 12/16/22 05:35> Result Diagrams: 12/15/22 19:10 12/15/22 19:10 <Antonette Matta CNP - Last Filed: 12/15/22 19:04> Labs: Lab Results 12/15/22 12/15/22 12/15/22 Range/Units 19:08 19:08 19:10 WBC 3.2 L (4.8-10.8) X10*3/uL RBC 5.15 (4.60-5.80) X10*6/uL Hgb 15.7 (14.0-18.0) g/dl Hct 45.3 (42.0-52.0) % MCV 88.0 (80.0-98.0) fL MCH 30.5 (27.0-33.0) pg MCHC 34.7 (31.0-36.0) g/dl RDW 11.7 (11.0-16.0) % Plt Count 128 L D (160-400) X10*3/uL MPV 11.9 (9.4-12.4) fL Immature Gran % (Auto) 0.3 (0.0-0.4) % Neut % (Auto) 34.2 L (45-73) % Lymph % (Auto) 45.3 H (20-40) % [place] % (Auto) 17.1 H (2-11) % Eos % (Auto) 2.8 (0-4) % Baso % (Auto) 0.3 (0-2) % Lymph # (Auto) 1.4 (1.2-4.9) X10*3/uL [place] # (Auto) 0.5 (0.1-1.2) X10*3/uL Eos # (Auto) 0.1 (0.0-0.4) X10*3/uL Baso # (Auto) 0.0 (0.0-0.2) X10*3/uL Abs Immat Gran (auto) 0.01 (0.00-0.03) X10*3/uL Absolute Neuts (auto) 1.1 L (2.0-8.3) x10*3/uL Absolute Nucleated RBC 0.000 (0.0-0.012) X10*3/uL Nucleated RBC % (auto) 0.0 (0.0-0.2) /100WBC Sodium (135-145) mmol/L Potassium (3.3-5.1) mmol/L Chloride (96-108) mmol/L Carbon Dioxide (22-29) mmol/L Anion Gap (12-20) BUN (9-16) mg/dL Creatinine (0.5-1.4) mg/dL Estim Creat Clear Calc Estimated GFR Random Glucose (60-115) mg/dL Calcium (8.4-10.2) mg/dL Total Bilirubin (0.0-1.0) mg/dL AST (5-37) U/L ALT (0-40) U/L Alkaline Phosphatase (39-117) U/L Total Protein (6.5-8.0) g/dL Albumin (3.5-5.0) g/dL COVID-19 (PENELOPE) Negative (Negative) COVID-19 Clin Com See Note Influenza Type A (LULA) Negative (Negative) Influenza Type B (LULA) Positive A (Negative) Influenza A & B Note See Note 12/15/22 Range/Units 19:10 WBC (4.8-10.8) X10*3/uL RBC (4.60-5.80) X10*6/uL Hgb (14.0-18.0) g/dl Hct (42.0-52.0) % MCV (80.0-98.0) fL MCH (27.0-33.0) pg MCHC (31.0-36.0) g/dl RDW (11.0-16.0) % Plt Count (160-400) X10*3/uL MPV (9.4-12.4) fL Immature Gran % (Auto) (0.0-0.4) % Neut % (Auto) (45-73) % Lymph % (Auto) (20-40) % [place] % (Auto) (2-11) % Eos % (Auto) (0-4) % Baso % (Auto) (0-2) % Lymph # (Auto) (1.2-4.9) X10*3/uL [place] # (Auto) (0.1-1.2) X10*3/uL Eos # (Auto) (0.0-0.4) X10*3/uL Baso # (Auto) (0.0-0.2) X10*3/uL Abs Immat Gran (auto) (0.00-0.03) X10*3/uL Absolute Neuts (auto) (2.0-8.3) x10*3/uL Absolute Nucleated RBC (0.0-0.012) X10*3/uL Nucleated RBC % (auto) (0.0-0.2) /100WBC Sodium 136 (135-145) mmol/L Potassium 4.9 (3.3-5.1) mmol/L Chloride 99 (96-108) mmol/L Carbon Dioxide 29 (22-29) mmol/L Anion Gap 13 (12-20) BUN 17 H (9-16) mg/dL Creatinine 1.09 (0.5-1.4) mg/dL Estim Creat Clear Calc 79.2 Estimated GFR > 60 Random Glucose 382 H* (60-115) mg/dL Calcium 8.7 (8.4-10.2) mg/dL Total Bilirubin 1.0 (0.0-1.0) mg/dL AST 15 (5-37) U/L ALT 16 (0-40) U/L Alkaline Phosphatase 126 H (39-117) U/L Total Protein 6.3 L (6.5-8.0) g/dL Albumin 3.7 (3.5-5.0) g/dL COVID-19 ([facility]OPE) (Negative) COVID-19 Clin Com Influenza Type A (LUAL) (Negative) Influenza Type B (LULA) (Negative) Influenza A & B Note <Antonette Matta, MAIK - Last Filed: 12/15/22 19:04> Lab Results 12/15/22 12/15/22 12/15/22 Range/Units 19:08 19:08 19:10 WBC 3.2 L (4.8-10.8) X10*3/uL RBC 5.15 (4.60-5.80) X10*6/uL Hgb 15.7 (14.0-18.0) g/dl Hct 45.3 (42.0-52.0) % MCV 88.0 (80.0-98.0) fL MCH 30.5 (27.0-33.0) pg MCHC 34.7 (31.0-36.0) g/dl RDW 11.7 (11.0-16.0) % Plt Count 128 L D (160-400) X10*3/uL MPV 11.9 (9.4-12.4) fL Immature Gran % (Auto) 0.3 (0.0-0.4) % Neut % (Auto) 34.2 L (45-73) % Lymph % (Auto) 45.3 H (20-40) % [place] % (Auto) 17.1 H (2-11) % Eos % (Auto) 2.8 (0-4) % Baso % (Auto) 0.3 (0-2) % Lymph # (Auto) 1.4 (1.2-4.9) X10*3/uL [place] # (Auto) 0.5 (0.1-1.2) X10*3/uL Eos # (Auto) 0.1 (0.0-0.4) X10*3/uL Baso # (Auto) 0.0 (0.0-0.2) X10*3/uL Abs Immat Gran (auto) 0.01 (0.00-0.03) X10*3/uL Absolute Neuts (auto) 1.1 L (2.0-8.3) x10*3/uL Absolute Nucleated RBC 0.000 (0.0-0.012) X10*3/uL Nucleated RBC % (auto) 0.0 (0.0-0.2) /100WBC Sodium (135-145) mmol/L Potassium (3.3-5.1) mmol/L Chloride (96-108) mmol/L Carbon Dioxide (22-29) mmol/L Anion Gap (12-20) BUN (9-16) mg/dL Creatinine (0.5-1.4) mg/dL Estim Creat Clear Calc Estimated GFR Random Glucose (60-115) mg/dL Calcium (8.4-10.2) mg/dL Total Bilirubin (0.0-1.0) mg/dL AST (5-37) U/L ALT (0-40) U/L Alkaline Phosphatase (39-117) U/L Total Protein (6.5-8.0) g/dL Albumin (3.5-5.0) g/dL COVID-19 ([facility]) Negative (Negative) COVID-19 Clin Com See Note Influenza Type A (LULA) Negative (Negative) Influenza Type B (LULA) Positive A (Negative) Influenza A & B Note See Note 12/15/22 Range/Units 19:10 WBC (4.8-10.8) X10*3/uL RBC (4.60-5.80) X10*6/uL Hgb (14.0-18.0) g/dl Hct (42.0-52.0) % MCV (80.0-98.0) fL MCH (27.0-33.0) pg MCHC (31.0-36.0) g/dl RDW (11.0-16.0) % Plt Count (160-400) X10*3/uL MPV (9.4-12.4) fL Immature Gran % (Auto) (0.0-0.4) % Neut % (Auto) (45-73) % Lymph % (Auto) (20-40) % [place] % (Auto) (2-11) % Eos % (Auto) (0-4) % Baso % (Auto) (0-2) % Lymph # (Auto) (1.2-4.9) X10*3/uL [place] # (Auto) (0.1-1.2) X10*3/uL Eos # (Auto) (0.0-0.4) X10*3/uL Baso # (Auto) (0.0-0.2) X10*3/uL Abs Immat Gran (auto) (0.00-0.03) X10*3/uL Absolute Neuts (auto) (2.0-8.3) x10*3/uL Absolute Nucleated RBC (0.0-0.012) X10*3/uL Nucleated RBC % (auto) (0.0-0.2) /100WBC Sodium 136 (135-145) mmol/L Potassium 4.9 (3.3-5.1) mmol/L Chloride 99 (96-108) mmol/L Carbon Dioxide 29 (22-29) mmol/L Anion Gap 13 (12-20) BUN 17 H (9-16) mg/dL Creatinine 1.09 (0.5-1.4) mg/dL Estim Creat Clear Calc 79.2 Estimated GFR > 60 Random Glucose 382 H* (60-115) mg/dL Calcium 8.7 (8.4-10.2) mg/dL Total Bilirubin 1.0 (0.0-1.0) mg/dL AST 15 (5-37) U/L ALT 16 (0-40) U/L Alkaline Phosphatase 126 H (39-117) U/L Total Protein 6.3 L (6.5-8.0) g/dL Albumin 3.7 (3.5-5.0) g/dL COVID-19 ([facility]) (Negative) COVID-19 Clin Com Influenza Type A (LULA) (Negative) Influenza Type B (LULA) (Negative) Influenza A & B Note <Narinder Gonzalez MD - Last Filed: 12/16/22 05:35> Discharge Plan Discharge Clinical Impression: Influenza B <Antonette Matta CNP - Last Filed: 12/15/22 19:04> Patient Disposition: Home, Self-Care <Antonette Matta CNP - Last Filed: 12/15/22 19:04> Instructions: Influenza (ED) <Antonette Matta CNP - Last Filed: 12/15/22 19:04> Additional Instructions: Drink plenty of fluid Tylenol/ibuprofen for pain and body aches Cough drops as prescribed Take your insulin on time Follow-up with PCP if not better Take your insulin tonight Beber mucho l?quido Tylenol/ibuprofeno para el dolor y los eufemia corporales Pastillas para la tos seg?n lo prescrito [place] bynum insulina a tiempo Seguimiento con PCP si no mejor Mary tu insulina esta noche <Antonette Matta CNP - Last Filed: 12/15/22 19:04> Prescriptions: New benzonatate 200 mg capsule 200 mg PO TID PRN (Reason: cough) Qty: 20 0RF ibuprofen 600 mg tablet 600 mg PO Q6H PRN (Reason: fever or pain) Qty: 30 0RF No Action metformin 1,000 mg tablet 1,000 mg PO BID 90 Days Qty: 180 2RF (DME) pen needle, diabetic [Easy Touch] 31 gauge x 3/16 needle See Rx Instructions .ROUTE .MEDSUPPLY Qty: 100 11RF Rx Instructions: Use 1 needle once a day ajmdgarqcs-jpatmwdtephzn-xkij 50-325-40 mg Tablet 1 tab PO Q4H PRN (Reason: Headache) Qty: 20 0RF docusate sodium 100 mg Capsule 100 mg PO DAILY PRN (Reason: Constipation) Qty: 30 0RF cyclobenzaprine 10 mg tablet 10 mg PO Q8H Qty: 14 0RF codeine-guaifenesin [Guaifenesin AC] 10-100 mg/5 mL liquid 5 ml PO Q6H PRN (Reason: cold symptoms) Qty: 120 0RF (DME) FreeStyle Lite Strips Strip See Rx Instructions .Route Rx Instructions: As directed atorvastatin 40 mg tablet 40 mg PO BEDTIME 90 Days Qty: 90 3RF insulin glargine [Lantus Solostar U-100 Insulin] 100 unit/mL (3 mL) insulin pen 32 unit subcut DAILY 90 Days Qty: 28.8 3RF <Antonette Matta CNP - Last Filed: 12/15/22 19:04> Stand Alone Forms: Work/School Release <Antonette Matta CNP - Last Filed: 12/15/22 19:04> Interventions: ED Discharge Assessment Last Done: 12/15/22 22:36 <Antonette Mtata CNP - Last Filed: 12/15/22 19:04> Discharge Date/Time: 12/15/22 22:37 <Antonette Matta CNP - Last Filed: 12/15/22 19:04> Print Language: Swedish <Antonette Matta CNP - Last Filed: 12/15/22 19:04>
[2022-12-15 18:59] VITALS: BP 135/84; PULSE 74; RESP 18; TEMP 36.5; O2SAT 98; BMI 25.8
[2022-12-15 19:21] LABS: Basophils Percent Auto 0.3 % (0-2); Neutrophils Absolute Auto 1.1 x10*3/uL (2.0-8.3); PLT CLUMP 1; SCAN SMEAR FLAG 1
[2022-12-15 19:23] LABS: Eosinophils Absolute Auto 0.1 X10*3/uL (0.0-0.4); Eosinophils Percent Auto 2.8 % (0-4); Hematocrit 45.3 % (42.0-52.0); Hemoglobin 15.7 g/dl (14.0-18.0); Imm Gran Abs Auto 0.01 X10*3/uL (0.00-0.03); Imm Gran Pct Auto 0.3 % (0.0-0.4); Lymphocytes Absolute Auto 1.4 X10*3/uL (1.2-4.9); Lymphocytes Percent Auto 45.3 % (20-40); Mean Corpuscular HGB Conc 34.7 g/dl (31.0-36.0); Mean Corpuscular Hemoglobin 30.5 pg (27.0-33.0); Mean Platelet Volume 11.9 fL (9.4-12.4); Monocytes Absolute Auto 0.5 X10*3/uL (0.1-1.2); Monocytes Percent Auto 17.1 % (2-11); Neutrophils Percent Auto 34.2 % (45-73); Red Blood Count 5.15 X10*6/uL (4.60-5.80); Red Cell Distribution Width 11.7 % (11.0-16.0)
[2022-12-15 19:37] LABS: COVID-19 Test Negative (Negative); IDNOW Serial# 16C4AD1C; IDNOW Serial# BCCEAD1C; Influenza A Negative (Negative); Influenza B2 Positive (Negative)
[2022-12-15 19:38] LABS: Alanine Aminotransferase 16 U/L (0-40); Albumin Level 3.7 g/dL (3.5-5.0); Alkaline Phosphatase 126 U/L (39-117); Anion Gap 13 (12-20); Aspartate Amino Transferase 15 U/L (5-37); Blood Urea Nitrogen 17 mg/dL (9-16); Calcium 8.7 mg/dL (8.4-10.2); Carbon Dioxide 29 mmol/L (22-29); Chloride 99 mmol/L (96-108); Creatinine Clr Calc Pharmacy 79.2; Estimated Glomerular Filt Rate > 60; Glucose Random 382 mg/dL (60-115); MANUAL DIFF FLAG NO; Platelet Count 128 X10*3/uL (160-400); Potassium 4.9 mmol/L (3.3-5.1); Sodium 136 mmol/L (135-145); Total Protein 6.3 g/dL (6.5-8.0); White Blood Count 3.2 X10*3/uL (4.8-10.8)
[2022-12-15] MEDS: Ibuprofen 600 MG TABLET PO (22:29)
[2022-12-15] MEDS: Benzonatate 100 MG CAPSULE 200 MG PO (22:29)
[2022-12-15] MEDS: Insulin Lispro 100 UNIT/ML 3 ML VIAL 12 UNIT SUBCUT (22:30)
== END 2022-12-15 22:37 | disposition home or self-care (01) ==
PROVIDERS: Nurse Practitioner Family; Emergency Provider Internal Medicine; PCP Internal Medicine
DX: J10.1 Influenza due to other identified influenza virus with other respiratory manifestations (principal); G43.909 Migraine, unspecified, not intractable, without status migrainosus; Z20.822 Contact with and (suspected) exposure to COVID-19; Z20.828 Contact with and (suspected) exposure to other viral communicable diseases; Z79.899 Other long term (current) drug therapy
CPT/HCPCS: 80053; 85025; 87502; 87635; 99283

== ENCOUNTER 2023-01-14 12:15 | Outpatient (REF) | payer OTHER, SELFPAY ==
[2023-01-14 13:58] LABS: Alanine Aminotransferase 18 U/L (0-40); Albumin Level 4.2 g/dL (3.5-5.0); Alkaline Phosphatase 115 U/L (39-117); Anion Gap 15 (12-20); Aspartate Amino Transferase 15 U/L (5-37); Blood Urea Nitrogen 15 mg/dL (9-16); Calcium 9.6 mg/dL (8.4-10.2); Carbon Dioxide 26 mmol/L (22-29); Chloride 103 mmol/L (96-108); Cholesterol 209 mg/dL; Estimated Glomerular Filt Rate > 60; Glucose Fasting 271 mg/dL (60-99); HDL Cholesterol 65 mg/dL; LDL Cholesterol Calculated 130 mg/dl; Potassium 4.5 mmol/L (3.3-5.1); Sodium 139 mmol/L (135-145); Total Protein 6.9 g/dL (6.5-8.0); Triglycerides 74 mg/dL
[2023-01-14 14:03] LABS: Creatinine Urine 289.76 mg/dL; Microalbum/Creatinine Ratio Ur 19.3 ug/mg cr
[2023-01-14 14:14] LABS: Vitamin D 25-OH Total 39.3 ng/mL (>30)
== END 2023-01-14 12:16 | disposition home or self-care (01) ==
LOC: HO.10HDL 12:15
PROVIDERS: Visit Provider Internal Medicine
DX: E11.9 Type 2 diabetes mellitus without complications (principal); E55.9 Vitamin D deficiency, unspecified; E78.5 Hyperlipidemia, unspecified; Z71.3 Dietary counseling and surveillance
CPT/HCPCS: 36415; 80053; 80061; 82043; 82306; 97802

== ENCOUNTER → 2023-01-19 15:49 | Outpatient (BNVA) | payer OTHER, SELFPAY | PROVIDERS: PCP Internal Medicine; Visit Provider Internal Medicine Endocrinology, Diabetes & Metabolism | DX: E11.9 Type 2 diabetes mellitus without complications (principal) | CPT/HCPCS: 82947; 83036; 99212 ==

== ENCOUNTER → 2023-03-09 13:31 | Outpatient (BNVA) | payer OTHER, SELFPAY | PROVIDERS: PCP Internal Medicine; Visit Provider Dietitian, Registered | DX: E11.9 Type 2 diabetes mellitus without complications (principal); Z71.3 Dietary counseling and surveillance | CPT/HCPCS: 97803 ==

== ENCOUNTER 2023-03-30 13:29 | Outpatient (REF) | payer OTHER, SELFPAY ==
[2023-03-30 15:26] LABS: MANUAL DIFF FLAG NO
[2023-03-30 16:16] LABS: Basophils Percent Auto 0.4 % (0-2); Eosinophils Absolute Auto 0.1 X10*3/uL (0.0-0.4); Eosinophils Percent Auto 0.8 % (0-4); Hematocrit 45.1 % (42.0-52.0); Hemoglobin 15.2 g/dl (14.0-18.0); Imm Gran Abs Auto 0.02 X10*3/uL (0.00-0.03); Imm Gran Pct Auto 0.2 % (0.0-0.4); Lymphocytes Absolute Auto 2.1 X10*3/uL (1.2-4.9); Lymphocytes Percent Auto 23.9 % (20-40); Mean Corpuscular HGB Conc 33.7 g/dl (31.0-36.0); Mean Corpuscular Hemoglobin 30.2 pg (27.0-33.0); Mean Corpuscular Volume 89.5 fL (80.0-98.0); Mean Platelet Volume 12.1 fL (9.4-12.4); Monocytes Absolute Auto 0.8 X10*3/uL (0.1-1.2); Monocytes Percent Auto 8.4 % (2-11); Neutrophils Absolute Auto 5.9 x10*3/uL (2.0-8.3); Neutrophils Percent Auto 66.3 % (45-73); Platelet Count 185 X10*3/uL (160-400); Red Blood Count 5.04 X10*6/uL (4.60-5.80); Red Cell Distribution Width 11.9 % (11.0-16.0); White Blood Count 8.9 X10*3/uL (4.8-10.8)
[2023-03-30 16:47] LABS: Alanine Aminotransferase 21 U/L (0-40); Albumin Level 4.3 g/dL (3.5-5.0); Alkaline Phosphatase 118 U/L (39-117); Anion Gap 11 (12-20); Aspartate Amino Transferase 18 U/L (5-37); Bilirubin Total 1.3 mg/dL (0.0-1.0); Blood Urea Nitrogen 24 mg/dL (9-16); Carbon Dioxide 29 mmol/L (22-29); Chloride 104 mmol/L (96-108); Cholesterol 225 mg/dL; Estimated Glomerular Filt Rate > 60; Glucose Fasting 185 mg/dL (60-99); HDL Cholesterol 71 mg/dL; LDL Cholesterol Calculated 132 mg/dl; Potassium 4.4 mmol/L (3.3-5.1); Sodium 140 mmol/L (135-145); Total Protein 7.2 g/dL (6.5-8.0); Triglycerides 110 mg/dL
[2023-03-30 17:03] LABS: Thyroid Stimulating Hormone 0.93 uIU/mL (0.32-4.0)
[2023-03-30 18:38] LABS: Creatinine Urine 105.55 mg/dL; Microalbum/Creatinine Ratio Ur 10.4 ug/mg cr
[2023-04-04 08:03] LABS: Glutamic acid decarboxylase Ab <5 IU/mL (<5)
== END 2023-03-30 13:30 | disposition home or self-care (01) ==
LOC: HO.LAB 13:29
PROVIDERS: Absent Provider Internal Medicine Endocrinology, Diabetes & Metabolism; PCP Internal Medicine; Visit Provider Registered Nurse Diabetes Educator
DX: E11.9 Type 2 diabetes mellitus without complications (principal); E78.5 Hyperlipidemia, unspecified; E55.9 Vitamin D deficiency, unspecified; R04.0 Epistaxis; R53.83 Other fatigue
CPT/HCPCS: 36415; 80053; 80061; 82043; 82306; 84443; 85025; 86341; 99211

== ENCOUNTER 2023-05-13 14:05 | Outpatient (AMB) | payer OTHER, SELFPAY ==
--- NOTE | 2023-05-13 14:36 | A.OFFVIS_ITS ---
Intake Intake Visit Reasons: dm Timing Inspector Required: Yes Timing Inspector Language: Child Caregiver Private Home Name: Nancy [id number] Information Interpreted: non-clinical & clinical Accompanied by: Spouse Allergies No Known Allergies [No Known Allergies*] Allergy (Verified 09/26/22 16:36) HPI Comprehensive Diabetes Asmnt Most Recent Diabetes Results: Microalb/Creat Ratio 10.4 ug/mg cr 03/30/23 Cholesterol 225 mg/dL 03/30/23 HDL Cholesterol 71 mg/dL 03/30/23 Triglycerides 110 mg/dL 03/30/23 Creatinine 0.92 mg/dL (0.5-1.4) 03/30/23 Blood Urea Nitrogen 24 mg/dL (9-16) H 03/30/23 Sodium 140 mmol/L (135-145) 03/30/23 Potassium 4.4 mmol/L (3.3-5.1) 03/30/23 Chloride 104 mmol/L (96-108) 03/30/23 Carbon Dioxide 29 mmol/L (22-29) 03/30/23 Calcium 10.0 mg/dL (8.4-10.2) 03/30/23 AST 18 U/L (5-37) 03/30/23 ALT 21 U/L (0-40) 03/30/23 Total Protein 7.2 g/dL (6.5-8.0) 03/30/23 Albumin 4.3 g/dL (3.5-5.0) 03/30/23 [facility] 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 Sister Diabetes Social History Household Members: Spouse Housing: House Do you presently have visiting nurse or other home services: No Alcohol intake: never Patient Tobacco Use Status: Never used Tobacco e-Cigarette/Vaping Use: Never Used Second Hand Smoke Exposure: No service: No Current occupational status: unemployed Cognitive needs: No Hearing needs: No Vision needs: No Assessment & Plan Assessment & Plan (1) Diabetes: Code(s): E11.9 - Type 2 diabetes mellitus without complications Plan: CGM Info Instructed Pt on what CGM can and can't do CGM Can: Give Pt minute by minute reading of glucose levels Displays glucose trend arrows that represents the direction glucose levels are fluctuating Give insight on decisions about how to dose insulin CGM cannot: Improve glucose control on its own Completely eliminate the need for all finger sticks Make dosing decision for you Instructed patient on how to insert sensor on the back of your arm Sensors are water proof so you can be then swim If sensor falls off a cannot be put back in must be replaced with new sensor Sensor placed on back patient's left arm Patient left visit in warmup Reviewed delay of CGM from fingersticks Reminded pt that if symptoms do not match sensor still needs to check fingersticks. Patient Instructions: Instrucciones para el paciente: CGM proporciona informaci?n sobre el control de la glucosa en enrique a lo alex del d?a, incluidas la hiperglucemia y la hipoglucemia. Contin?e controlando la glucosa en enrique seg?n las instrucciones. Siga las pautas de nutrici?n proporcionadas. Informe cualquier molestia de inmediato al proveedor de atenci?n m?dica. Mantente matthias hidratado. Puede ba?arse, ducharse, nadar y hacer ejercicio mientras usa el sensor de glucosa. No sumerja el sensor de glucosa en agua ramana m?s de 30 minutos. Retire el sensor para yaneth resonancia magn?terry o yaneth tomograf?a computarizada. Evite la m?quina de melvin X en los aeropuertos: retire el sensor o solicite la varita Coding Level of Care Code Est Pt Level 1 (93130) Diagnoses Diabetes E11.9
== END 2023-05-13 14:43 | disposition home or self-care (01) ==
PROVIDERS: PCP Internal Medicine; Visit Provider Registered Nurse Diabetes Educator
DX: E11.9 Type 2 diabetes mellitus without complications (principal)

== ENCOUNTER → 2023-05-13 14:05 | Outpatient (BNVA) | payer OTHER, SELFPAY | PROVIDERS: PCP Internal Medicine; Visit Provider Registered Nurse Diabetes Educator | DX: E11.9 Type 2 diabetes mellitus without complications (principal) | CPT/HCPCS: 99211 ==

== ENCOUNTER 2023-05-19 09:32 | Outpatient (AMB) | payer OTHER, SELFPAY ==
--- NOTE | 2023-05-19 09:36 | MHC.OFFVIS ---
Intake Vital Signs 05/19/23 09:41 Height 5 ft 9 in Weight 169 lb 8.568 oz BMI 25.0 BP 122/78 Blood Pressure Location Lt brachial Position Sitting Pulse 62 Pulse Source Pulse Oximeter Intake Visit Reasons: f/u diabetes Intake Note: Patient present today to follow up on Diabetes. Last Diabetic Eye exam: Last Podiatry Visit: Random Glucose: 185mg/dl HgA1C: 10.2% Green Building Engineer Required: Yes Green Building Engineer Language: Industrial Sales Representative Name: [facility] staff Information Interpreted: non-clinical & clinical Accompanied by: Self / Same As Patient Allergies No Known Allergies [No Known Allergies*] Allergy (Verified 05/19/23 09:41) Medication List - Last Reconciled 05/19/23 by Jean Sky MD atorvastatin 80 mg PO BEDTIME 90 days benzonatate 200 mg PO TID PRN blood sugar diagnostic (FreeStyle Lite Strips) TEST BLOOD SUGAR TWICE DAILY DIRECTED nvlwcocwbk-tdnitehuquwlv-slqg 50-325-40 mg 1 tab PO Q4H PRN codeine-guaifenesin 10-100 mg/5 mL (Guaifenesin AC) 5 mL PO Q6H PRN cyclobenzaprine 10 mg PO Q8H docusate sodium 100 mg PO DAILY PRN flash glucose scanning reader (FreeStyle Cynthia 2 Husser) As directed flash glucose sensor (FreeStyle Cynthia 2 Sensor kit) As directed change every 14 days ibuprofen 600 mg PO Q6H PRN insulin glargine (Lantus Solostar U-100 Insulin) 32 units (0.32 mL) subcut DAILY 90 days lancets (TRUEplus Lancets) Use 1 lancet twice a day metformin 1,000 mg PO BID 90 days pen needle, diabetic (Easy Touch) Use 1 needle once a day HPI HPI Comments History of Present Illness Details 52 YO M who is seen in consultation for T2DM at the request of PCP. Initially diagnosed with T2DM in metformin. Dxed 6 yrs ago prented with headaches . Was initially started on treatment with metformin 1000 mg BID. Took Trulicity in past but stopped due to nausea Current regimen . metformin 1000 mg BID not taking Lantus 20 units Cynthia download shows he is using the sensor 34% of the time. Average glucose is 255 with variability of 25.4%. Target glucose is 12% of the time with 88% hyperglycemia and no hypoglycemia Reports low sugars never . Treats lows with OJ . Does not recheck sugar after to ensure it is rising. Family history of T1DM since age 7 . 1Had eyes checked yearly, last eye exam 2 yrs ago , Needs to make appt denies retinopathy. Denies neuropathy, does not see podiatry. Denies nephropathy, not on JANET/ARB. Has HLD, on statin. .Not taking regularly Denies CAD. Had diabetes education. 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 Sister Diabetes Social History Household Members: Spouse Housing: House Do you presently have visiting nurse or other home services: No Alcohol intake: never Patient Tobacco Use Status: Never used Tobacco e-Cigarette/Vaping Use: Never Used Second Hand Smoke Exposure: No service: No Current occupational status: unemployed Cognitive needs: No Hearing needs: No Vision needs: No Physical Exam Vital Signs: Last Vital Signs Pulse 62 05/19/23 09:41 BP 122/78 05/19/23 09:41 BMI result Body Mass Index 25.0 Absence of Cushingoid features. Absence of acromegalic features. Neck exam reveals nl size thyroid about 15 gms. No thyroid nodules palpable. No carotid bruits present. Lungs CTA. Heart S1 S2, Reg R/R. No M/R/ G. Skin exam reveals absence of vitiligo or acanthosis nigricans. Abdominal exam reveals Soft NT/ND with NA BS. No organomegaly present. Neck Other: . Extrem Other: Visual exam of foot performed. No ulcerations or open lesions. No onchomycosis, no callouses.Pulses 2 + distally Sensation intact to monofilament exam. Vibratory sensation sensed is intact with 128 Hz tuning fork Results AMB Hemoglobin A1c AMB Hemoglobin A1c 10.2 % Last Edit by Dionne Woods on 05/19/23 10:15 Results Reviewed Results Reviewed: 05/19/23 09:54 Glucose, Whole Blood Routine Laboratory Last Values Glucose (Clinic) 185 mg/dL (60-115) H 08/09/23 09:54 Hgb A1c (Clinic) 10.2 % (4.0-6.0) H 05/19/23 10:06 Assessment & Plan Assessment & Plan (1) Diabetes: Code(s): E11.9 - Type 2 diabetes mellitus without complications Plan: This is a 52-year-old male with history of diabetes type 2 being treated metformin and basal insulin poor glycemic control and no known microvascular macrovascular complications. Plan is that the patient scan with the Cynthia more frequent his point cares pre and post breakfast and dinner. and consider adding an alternative G LP 1 like Ozempic and titrate as tolerated. Went over side effects of Ozempic including nausea, vomiting and rare risk of pancreatitis. Will start Ozempic 0.25 mg Q weekly and titrate as tolerated. Ozempic 0.25 mg samples given to patient lot number [id number] expiration date 11/10/2024 Orders: Orders AMB Hemoglobin A1c Today E11.9 - Type 2 diabetes mellitus without complications Medications: New semaglutide (Ozempic) 0.5 mg (0.736 mL) subcut QWEEK 3 mL 5RF Coding Level of Care Code Est Pt Level 4 (91421) Diagnoses Diabetes E11.9
[2023-05-19 09:41] VITALS: BP 122/78; PULSE 62; BMI 25.0
[2023-05-19 09:59] LABS: Glucose, Whole Blood 185 mg/dL (60-115)
== END 2023-05-19 10:29 | disposition home or self-care (01) ==
PROVIDERS: PCP Internal Medicine; Visit Provider Internal Medicine Endocrinology, Diabetes & Metabolism
DX: E11.9 Type 2 diabetes mellitus without complications (principal)
CPT/HCPCS: 99214

== ENCOUNTER → 2023-05-19 09:32 | Outpatient (BNVA) | payer OTHER, SELFPAY | PROVIDERS: Visit Provider Internal Medicine Endocrinology, Diabetes & Metabolism | DX: E11.9 Type 2 diabetes mellitus without complications (principal) | CPT/HCPCS: 82947; 83036; 99212 ==

== ENCOUNTER 2023-06-15 14:03 | Outpatient (AMB) | payer SELFPAY ==
--- NOTE | 2023-06-15 14:17 | A.OFFPC_ITS ---
Vital Signs 06/15/23 14:19 Height 5 ft 9 in Weight 168 lb BMI 24.8 BP 128/70 Blood Pressure Location Lt brachial Position Sitting Pulse 68 Pulse Source Auscultation Temp Source Skin Oxygen Delivery Method Room Air Intake Visit Reasons: DM, lab results Financial Aids Officer Required: Yes Financial Aids Officer Language: Irish Allergies No Known Allergies [No Known Allergies*] Allergy (Verified 06/15/23 14:35) Medication List - Last Reconciled 06/15/23 by ERIC Ramesh atorvastatin 80 mg PO BEDTIME 90 days benzonatate 200 mg PO TID PRN blood sugar diagnostic (FreeStyle Lite Strips) TEST BLOOD SUGAR TWICE DAILY DIRECTED yhtglncbqh-vaidizaatvavw-ghod 50-325-40 mg 1 tab PO Q4H PRN codeine-guaifenesin 10-100 mg/5 mL (Guaifenesin AC) 5 mL PO Q6H PRN cyclobenzaprine 10 mg PO Q8H docusate sodium 100 mg PO DAILY PRN flash glucose scanning reader (Mach 1 DevelopmentStyle Cynthia 2 [place]) As directed flash glucose sensor (FreeStyle Cynthia 2 Sensor kit) As directed change every 14 days ibuprofen 600 mg PO Q6H PRN insulin glargine (Lantus Solostar U-100 Insulin) 32 units (0.32 mL) subcut DAILY 90 days lancets (TRUEplus Lancets) Use 1 lancet twice a day metformin 1,000 mg PO BID 90 days pen needle, diabetic (Easy Touch) Use 1 needle once a day semaglutide (Ozempic) 0.5 mg (0.736 mL) subcut QWEEK Tobacco use date assessed: 06/15/23 HPI DM, lab results HPI Details Patient is a 52-year-old male who presents today to follow-up on diabetes. Patient of Dr. Dukes. Medical history significant for diabetes - on insulin, dyslipidemia, complicated migraine-patient denies any headaches-does not take anything for migraine. Patient is followed by endocrinology for diabetes, he was recently started on Ozempic although he does not know how to use this medication, patient was educated. Will refer for diabetic eye exam. Patient denies shortness of breath or chest pain. Patient is a Irish-speaking and Flakito was helping with interpretation. 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 Sister Diabetes Social History Household Members: Spouse Housing: House Do you presently have visiting nurse or other home services: No Alcohol intake: never Patient Tobacco Use Status: Never used Tobacco e-Cigarette/Vaping Use: Never Used Second Hand Smoke Exposure: No service: No Current occupational status: unemployed Cognitive needs: No Hearing needs: No Vision needs: No Questionnaire PHQ-9 Over the last 2 weeks, how often have you been bothered by any of the following problems? 1. Little interest or pleasure in doing things: not at all 2. Feeling down, depressed, or hopeless: not at all 3. Trouble falling or staying asleep, or sleeping too much: not at all 4. Feeling tired or having little energy: not at all 5. Poor appetite or overeating: not at all 6. Feeling bad about yourself - or that you are a failure or have let yourself or your family down: not at all 7. Trouble concentrating on things, such as reading the newspaper or watching television: not at all 8. Moving or speaking so slowly that other people could have noticed. Or the op posite - being so fidgety or restless that you have been moving around a lot more than usual: not at all 9. Thoughts that you would be better off or of hurting yourself in some way: not at all Total score: 0 Depression Screening Interpretation: Negative 51177 - PHQ-9 Billing: Yes Source: Developed by Drs. Jean Magana, Karol Jacob, Joo Gonzales and colleagues, with an educational cary from [employer]. Thrive Questionnaire Date Thrive assessed: 10/20/21 AUDIT C Alcohol Use Questionnaire (AUDIT-C) 1. How often do you have a drink containing alcohol?: Monthly or less 2. How many drinks containing alcohol do you have on a typical day when you are drinking?: 1 or 2 3. How often do you have six or more drinks on one occasion?: Never Total Score: 1 Score Reviewed/Action Taken: No ADRIEL-7 AMB Questionnaire ADRIEL-7 Date ADRIEL - 7 assessed: 06/15/23 Source: Developed by Drs. Jean Magana, Karol Jacob, Joo Gonzales and colleagues, with an educational cary from [employer]. Review of Systems Const Denies body aches, Denies chills, Denies fever(s) and Denies headache(s) ENT Denies dizziness, Denies otalgia, Denies headache(s), Denies nasal discharge, Denies sinus pain and Denies sore throat Card Denies chest pain, Denies edema, Denies lightheadedness and Denies dyspnea Resp Denies dyspnea and Denies wheezing GI Denies abdominal pain Denies dysuria Musc Denies myalgias Skin/Breast Denies rash Neuro Denies dizziness and Denies headache(s) Aller/Immun Denies wheezing Physical exam (Primary Care) Vital Signs: Last Vital Signs Pulse 68 06/15/23 14:19 BP 128/70 06/15/23 14:19 Oxygen Delivery Method Room Air 06/15/23 14:19 BMI result Body Mass Index 24.8 Tobacco/Smoking Status: Tobacco use Status Tobacco use date assessed 06/15/23 06/15/23 14:21 Patient Tobacco Use Status Never used Tobacco 06/15/23 14:21 e-Cigarette/Vaping Use Never Used 06/15/23 14:21 PHQ-9: PHQ-9 Score PHQ-9: Total score 0 06/15/23 14:44 Depression Screening Interpretation: Negative Thrive Assessment: Date of Thrive Assessment Date Thrive assessed 10/20/21 06/15/23 14:21 Const General: cooperative and no acute distress Orientation/consciousness: patient oriented x3 HENMT Head: Yes normocephalic and Yes atraumatic Face and sinus: Yes sinuses nontender Mouth: oropharynx normal and moist mucous membranes Throat: Yes posterior oropharynx normal Eyes General: appearance normal, both eyes and all related structures Neck Neck: Yes normal visual inspection, Yes full ROM and Yes no lymphadenopathy Resp Effort & Inspection: normal respiratory effort and able to speak in complete sentences Auscultation: clear to auscultation bilaterally, no crackles, no rales, no rhonchi and no wheezes Cardio Rate: regular rate Rhythm: regular rhythm Heart sounds: S1 normal heart sound present and S2 normal heart sound present GI Auscultation: normal bowel sounds Skin General skin exam: no rashes or lesions noted Neuro General: patient oriented x3 Gait exam (Neuro): Normal gait present Extrem General: Yes full ROM and No edema Assessment and Plan Assessment & Plan (1) Diabetes: Code(s): E11.9 - Type 2 diabetes mellitus without complications Plan: A1c 10.2 05/2023 Continue Lantus, metformin, patient is to start Ozempic - he was educated on how to give injections Low-carbohydrate diet Continue to follow-up with endocrinology Ophthalmology referral for diabetic eye exam (2) Hyperlipidemia LDL goal <70: Code(s): E78.5 - Hyperlipidemia, unspecified Plan: LDL 132 03/2023 Continue atorvastatin 80 mg at bedtime Low-cholesterol diet Recheck lipid panel (3) Complicated migraine: Code(s): G43.109 - Migraine with aura, not intractable, without status migrainosus Plan: Patient denies migraine headache Will continue to monitor Orders: Orders Comprehensive [place]. Panel Fast Today E11.9 - Type 2 diabetes mellitus without complications Lipid Panel Today E78.5 - Hyperlipidemia, unspecified Referrals Ophthalmology Referral E11.9 - Type 2 diabetes mellitus without complications Medications: Refilled flash glucose sensor (FreeStyle Cynthia 2 Sensor kit) As directed change every 14 days 2 ea 4RF Discontinued ptaabqcwev-hvtshyclemzkv-wjhw 50-325-40 mg Discontinued Reason: Patient no longer taking 1 tab PO Q4H PRN 20 tabs 0RF Headache cyclobenzaprine Discontinued Reason: Patient no longer taking 10 mg PO Q8H 14 tabs 0RF codeine-guaifenesin 10-100 mg/5 mL (Guaifenesin AC) Discontinued Reason: Patient no longer taking 5 mL PO Q6H PRN 120 mL 0RF cold symptoms benzonatate Discontinued Reason: Patient no longer taking 200 mg PO TID PRN 20 caps 0RF cough ibuprofen Discontinued Reason: Patient no longer taking 600 mg PO Q6H PRN 30 tabs 0RF fever or pain Coding Level of Care Code Est Pt Level 4 (37963) Diagnoses Diabetes E11.9 Hyperlipidemia LDL goal <70 E78.5 Complicated migraine G43.109
[2023-06-15 14:19] VITALS: BP 128/70; PULSE 68; BMI 24.8
== END 2023-06-15 14:50 | disposition home or self-care (01) ==
LOC: HO.HMGH 14:03
PROVIDERS: PCP Internal Medicine; Visit Provider Nurse Practitioner Family
DX: E11.9 Type 2 diabetes mellitus without complications (principal); E78.5 Hyperlipidemia, unspecified; G43.109 Migraine with aura, not intractable, without status migrainosus
CPT/HCPCS: 99214

== ENCOUNTER 2023-08-26 08:34 | Outpatient (AMB) | payer OTHER, SELFPAY ==
[2023-08-26 08:35] VITALS: BP 126/78; PULSE 82; BMI 25.3
--- NOTE | 2023-08-26 08:35 | A.OFFVIS_ITS ---
Intake Vital Signs 08/26/23 08:35 Height 5 ft 9 in Weight 171 lb 1.259 oz BMI 25.3 BP 126/78 Blood Pressure Location Lt brachial Position Sitting Pulse 82 Pulse Source Pulse Oximeter Intake Visit Reasons: DM-CONFIRMED Intake Note: Patient presents today to follow up on Type 2 Diabetes Mellitus. Last Diabetic Eye exam: 2020 Last Podiatry Visit: None Random Glucose: 281 mg/dl HgA1C: 11.0% Voice Writing Reporter Required: Yes Voice Writing Reporter Language: Plastic Surgery Assistant Name: Lucia medical staff Accompanied by: Self / Same As Patient Allergies No Known Allergies [No Known Allergies*] Allergy (Verified 08/26/23 08:48) Medication List - Last Reconciled 08/26/23 by Jean Sky MD atorvastatin 80 mg PO BEDTIME 90 days blood sugar diagnostic (FreeStyle Lite Strips) TEST BLOOD SUGAR TWICE DAILY DIRECTED docusate sodium 100 mg PO DAILY PRN flash glucose scanning reader (FreeStyle Cynthia 2 [place]) As directed flash glucose sensor (FreeStyle Cynthia 2 Sensor kit) As directed change every 14 days insulin glargine (Lantus Solostar U-100 Insulin) 32 units (0.32 mL) subcut DAILY 90 days lancets (TRUEplus Lancets) Use 1 lancet twice a day metformin 1,000 mg PO BID 90 days pen needle, diabetic (Easy Touch) Use 1 needle once a day semaglutide (Ozempic) 0.5 mg (0.736 mL) subcut QWEEK HPI HPI Comments History of Present Illness Details 52 YO M who is seen in consultation for T2DM at the request of PCP. Initially diagnosed with T2DM in metformin. Dxed 6 yrs ago prented with headaches . Was initially started on treatment with metformin 1000 mg BID. Took Trulicity in past but stopped due to nausea Current regimen . metformin 1000 mg BID Lantus 32 units Ozempic 0.5 mg Qwkly not taking because ran out Unfortunately, patient did not bring his sensor will glucometer to follow-up visit Reports low sugars never . Treats lows with OJ . Does not recheck sugar after to ensure it is rising. Family history of T1DM since age 7 . 1Had eyes checked needs to make appt , Needs to make appt denies retinopathy. Denies neuropathy, does not see podiatry. Denies nephropathy, not on JANET/ARB. Has HLD, on statin. .Not taking regularly Denies CAD. Had diabetes education. 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 Sister Diabetes Social History Household Members: Spouse Housing: House Do you presently have visiting nurse or other home services: No Alcohol intake: never Patient Tobacco Use Status: Never used Tobacco e-Cigarette/Vaping Use: Never Used Second Hand Smoke Exposure: No service: No Current occupational status: unemployed Cognitive needs: No Hearing needs: No Vision needs: No Physical Exam Vital Signs: Last Vital Signs Pulse 82 08/26/23 08:35 BP 126/78 08/26/23 08:35 BMI result Body Mass Index 25.3 Absence of Cushingoid features. Absence of acromegalic features. Neck exam reveals nl size thyroid about 15 gms. No thyroid nodules palpable. No carotid bruits present. Lungs CTA. Heart S1 S2, Reg R/R. No M/R/ G. Skin exam reveals absence of vitiligo or acanthosis nigricans. Abdominal exam reveals Soft NT/ND with NA BS. No organomegaly present. Neck Other: . Extrem Other: Visual exam of foot performed. No ulcerations or open lesions. No onchomycosis, no callouses.Pulses 2 + distally Sensation intact to monofilament exam. Vibratory sensation sensed is intact with 128 Hz tuning fork Assessment & Plan Assessment & Plan (1) Diabetes: Code(s): E11.9 - Type 2 diabetes mellitus without complications Plan: This is a 52-year-old male with history of diabetes type 2 being treated metformin and basal insulin poor glycemic control and no known microvascular macrovascular complications. Plan is to have the patient reinitiate is Cynthia and bring the Cynthia with him to follow-up visit. Cannot make any adjustment to his regimen because of lack of data. Once again went over the relationship poor glycemic can not to development of progression complications with patient via translator and interpreter. Will recheck lipid profile as ordered by primary care. Patient should follow up with peer educator once Cynthia is reinitiated. Will likely need prandial insulin in combination with basal and G LP 1 and metformin Orders: Orders AMB Hemoglobin A1c Today E11.9 - Type 2 diabetes mellitus without complications Coding Level of Care Code Est Pt Level 4 (35821) Diagnoses Diabetes E11.9
[2023-08-26 08:47] LABS: Glucose, Whole Blood 281 mg/dL (60-115)
== END 2023-08-26 08:58 | disposition home or self-care (01) ==
PROVIDERS: PCP Internal Medicine; Visit Provider Internal Medicine Endocrinology, Diabetes & Metabolism
DX: E11.9 Type 2 diabetes mellitus without complications (principal)
CPT/HCPCS: 99214

== ENCOUNTER → 2023-08-26 08:34 | Outpatient (BNVA) | payer OTHER, SELFPAY | PROVIDERS: PCP Internal Medicine; Visit Provider Internal Medicine Endocrinology, Diabetes & Metabolism | DX: E11.9 Type 2 diabetes mellitus without complications (principal) | CPT/HCPCS: 82947; 83036; 99212 ==

== ENCOUNTER 2023-09-07 14:54 | Outpatient (AMB) | payer OTHER, SELFPAY ==
--- NOTE | 2023-09-07 15:29 | MHC.AMDMED ---
Intake Intake Visit Reasons: DM-CONFIRMED Executive Assistant To General Counsel Required: Yes Executive Assistant To General Counsel Language: Design Maker Name: Judith [facility] Information Interpreted: non-clinical & clinical Accompanied by: Self / Same As Patient Allergies No Known Allergies [No Known Allergies*] Allergy (Verified 08/26/23 08:48) HPI Comprehensive Diabetes Asmnt Most Recent Diabetes Results: Microalb/Creat Ratio 10.4 ug/mg cr 03/30/23 Cholesterol 225 mg/dL 03/30/23 HDL Cholesterol 71 mg/dL 03/30/23 Triglycerides 110 mg/dL 03/30/23 Creatinine 0.92 mg/dL (0.5-1.4) 03/30/23 Blood Urea Nitrogen 24 mg/dL (9-16) H 03/30/23 Sodium 140 mmol/L (135-145) 03/30/23 Potassium 4.4 mmol/L (3.3-5.1) 03/30/23 Chloride 104 mmol/L (96-108) 03/30/23 Carbon Dioxide 29 mmol/L (22-29) 03/30/23 Calcium 10.0 mg/dL (8.4-10.2) 03/30/23 AST 18 U/L (5-37) 03/30/23 ALT 21 U/L (0-40) 03/30/23 Total Protein 7.2 g/dL (6.5-8.0) 03/30/23 Albumin 4.3 g/dL (3.5-5.0) 03/30/23 PFSH Medical History (Updated 06/15/23 @ 15:56 by ERIC Ramesh) 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 Sister Diabetes Social History Household Members: Spouse Housing: House Do you presently have visiting nurse or other home services: No Alcohol intake: never Patient Tobacco Use Status: Never used Tobacco e-Cigarette/Vaping Use: Never Used Second Hand Smoke Exposure: No service: No Current occupational status: unemployed Cognitive needs: No Hearing needs: No Vision needs: No Assessment & Plan Assessment & Plan (1) Diabetes: Code(s): E11.9 - Type 2 diabetes mellitus without complications Qualifiers: Diabetes mellitus type: type 2 Diabetes mellitus complication status: without complication Plan: Learning objectives: The patient was provided with verbal and written education on the following topics as outlined below. The patient met all learning objectives and was able to verbalize understanding and provide teach back of education topics discussed . The patient was provided with the opportunity to ask questions and all questions were answered. Patient Assessment Assess patient education level/literacy/barriers Patient questions/concerns,patient has not been able to flower buncher or picker sensors or start of Ozempic. Recommended to patient that he flower buncher or picker sensors from pharmacy, start on Ozempic 0.25 mg weekly follow-up with telehealth nurse educator in 1 month. Blood glucose monitoring When/how often to test Target blood sugar ranges Patient did not bring meter to today's visit Introduction to Nutrition Importance of healthy diet in managing DM Diet is personalized to individual preference Review patient?s regular diet/food preferences Who prepares meals/does food shopping/ Dining out?/ Barriers? How diet effects glucose Eating 3 balanced meals a day with small, healthy snacks between meals Review food groups Carbohydrates: What is a carbohydrate/Which food/food groups are considered carbohydrates Effect of carbohydrates on blood glucose Portion sizes Reading food labels Basic carb counting (if applicable per nursing assessment) Plate method Meal planning Recommendations: Follow plate method, consistent carbs and read nutritional labels. Smart Goal: Patient will keep meals to 45-60 g of carbohydrate Educational Materials: The patient was provided with the following written educational materials: Planning Healthy Meals Handout Patient Response to instructions: Comprehension of Instructions: Fair Readiness to make changes: Contemplation How confident they feel about making changes: Fair Patient Instructions: Incluir actividad diaria regular. ADA recomienda 30 minutos de ejercicio 5 d?as a la semana. P?rdida de peso, hable con el PCP o el cardi?logo antes de comenzar un nuevo plan. Mida el nivel de az?car en la enrique seg?n las indicaciones; Ayuno y comida m?s puneet de 2hpp. Observe las tendencias en los resultados. Utilice los resultados y eval?e c?mo los alimentos, la actividad f?ez y los medicamentos afectan los resultados de az?car en la enrique. Lleve el gluc?metro o CGM a la pr?xima visita. Conocer los medicamentos para la diabetes, bynum acci?n, los efectos secundarios, la eficacia, la toxicidad, la dosis prescrita, el momento y la frecuencia de administraci?n apropiados, el efecto de las dosis olvidadas y retrasadas y las instrucciones de almacenamiento, viaje y seguridad. T?cnicas de resoluci?n de problemas para el seguimiento de episodios de hipo/hiperglucemia y tratamientos. Reducir los comportamientos de reducci?n de riesgos, dejar de fumar, ex?menes regulares de ojos, pies y dentales. Coding Level of Care Code Est Pt Level 1 (10016) Diagnoses Type 2 diabetes mellitus with hyperglycemia, with long-term current use of insulin E11.9 Diabetes mellitus type: type 2 Diabetes mellitus complication status: without complication
== END 2023-09-07 15:31 | disposition home or self-care (01) ==
PROVIDERS: PCP Internal Medicine; Visit Provider Registered Nurse Diabetes Educator
DX: E11.9 Type 2 diabetes mellitus without complications (principal)

== ENCOUNTER → 2023-09-07 14:54 | Outpatient (BNVA) | payer OTHER, SELFPAY | PROVIDERS: PCP Internal Medicine; Visit Provider Registered Nurse Diabetes Educator | DX: E11.9 Type 2 diabetes mellitus without complications (principal) | CPT/HCPCS: 99211 ==

== ENCOUNTER 2023-10-19 08:11 | Outpatient (REF) | payer OTHER, SELFPAY ==
[2023-10-19 09:53] LABS: Alanine Aminotransferase 25 U/L (0-40); Alkaline Phosphatase 91 U/L (39-117); Anion Gap 9 (12-20); Aspartate Amino Transferase 19 U/L (5-37); Bilirubin Total 1.7 mg/dL (0.0-1.0); Blood Urea Nitrogen 17 mg/dL (9-16); Calcium 9.3 mg/dL (8.4-10.2); Carbon Dioxide 29 mmol/L (22-29); Chloride 105 mmol/L (96-108); Cholesterol 206 mg/dL (<200); Estimated Glomerular Filt Rate > 60; Glucose Fasting 147 mg/dL (60-99); HDL Cholesterol 62 mg/dL (>40); LDL Cholesterol Calculated 132 mg/dL (<100); Potassium 4.1 mmol/L (3.3-5.1); Sodium 139 mmol/L (135-145); Total Protein 6.6 g/dL (6.5-8.0); Triglycerides 60 mg/dL (<150)
== END 2023-10-19 08:12 | disposition home or self-care (01) ==
LOC: HO.LAB 08:11
PROVIDERS: PCP Internal Medicine; Visit Provider Nurse Practitioner Family
DX: E78.5 Hyperlipidemia, unspecified (principal); E11.9 Type 2 diabetes mellitus without complications
CPT/HCPCS: 36415; 80053; 80061

== ENCOUNTER 2023-10-20 14:42 | Outpatient (AMB) | payer OTHER, SELFPAY ==
[2023-10-20 14:53] VITALS: BP 120/80; PULSE 82; O2SAT 98; BMI 25.9
--- NOTE | 2023-10-20 14:53 | MHC.PC.OV ---
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 Accompanied by: Spouse Allergies No Known Allergies [No Known Allergies*] Allergy (Verified 10/20/23 15:12) Medication List - Last Reconciled 10/20/23 by Kylee Bui MD atorvastatin 80 mg PO BEDTIME 90 days blood sugar diagnostic (FreeStyle Lite Strips) TEST BLOOD SUGAR TWICE DAILY DIRECTED docusate sodium 100 mg PO DAILY PRN ezetimibe 10 mg PO DAILY 90 days flash glucose scanning reader (IninalStyle Cynthia 2 [place]) As directed flash glucose sensor (FreeStyle Cynthia 2 Sensor kit) As directed change every 14 days insulin glargine (Lantus Solostar U-100 Insulin) 32 units (0.32 mL) subcut DAILY 90 days lancets (TRUEplus Lancets) Use 1 lancet twice a day metformin 1,000 mg PO BID 90 days pen needle, diabetic (Easy Touch) Use 1 needle once a day semaglutide (Ozempic) 0.5 mg (0.736 mL) subcut QWEEK Tobacco use date assessed: 10/20/23 Dental Screening Dental Screen Date: 10/20/23 Did you have a dental visit in the last 12 months?: Yes Did you have a dental problem in the last 6 months where you did not have access to dental care?: No Was dental information given to patient?: Patient has dentist HPI HPI Comments History of Present Illness Details This is a 52-year-old male with diabetes mellitus type 2 on long-term current use of insulin, hyperlipidemia and chronic constipation that comes today for follow-up on his conditions. A1c elevated and I will increase long-acting insulin. He will see Endocrinology next month. LDL elevated and his compliant with medications. He eats mayonaise with eggs every day. I recommend due to some dietary changes and repeat lipid panel. No chest pain or shortness of breath. Accompanied by friend. [facility] Medical History (Updated 10/20/23 @ 15:44 by Kylee Bui MD) Left hemiplegia Poor compliance correction (current) use of insulin Nausea Dyslipidemia COVID-19 Diabetes Surgical History No pertinent past surgical history Family History Father Stroke Mother No problems noted. Sister Diabetes Social History Household Members: Spouse Housing: House Do you presently have visiting nurse or other home services: No Alcohol intake: never Patient Tobacco Use Status: Never used Tobacco e-Cigarette/Vaping Use: Never Used Second Hand Smoke Exposure: No service: No Current occupational status: unemployed Cognitive needs: No Hearing needs: No Vision needs: No Questionnaire PHQ-9 Over the last 2 weeks, how often have you been bothered by any of the following problems? 1. Little interest or pleasure in doing things: not at all 2. Feeling down, depressed, or hopeless: not at all 3. Trouble falling or staying asleep, or sleeping too much: not at all 4. Feeling tired or having little energy: not at all 5. Poor appetite or overeating: not at all 6. Feeling bad about yourself - or that you are a failure or have let yourself or your family down: not at all 7. Trouble concentrating on things, such as reading the newspaper or watching television: not at all 8. Moving or speaking so slowly that other people could have noticed. Or the opposite - being so fidgety or restless that you have been moving around a lot more than usual: not at all 9. Thoughts that you would be better off or of hurting yourself in some way: not at all Total score: 0 Depression Screening Interpretation: Negative Depression Screening Done: Yes 24146 - PHQ-9 Billing: Yes Source: Developed by Drs. Jean Magana, Karol Jacob, Joo Gonzales and colleagues, with an educational cary from [employer]. Thrive Questionnaire Date Thrive assessed: 10/20/23 I am a: Patient What is your living situation today?: I have a steady place to live Within the past 12 months, did the food you bought not last and you didn't have the money to get more?: Never true Within the past 12 months, did you worry whether your food would run out before you got money to buy more?: Never true Do you have trouble paying for medicines?: No Do you have trouble getting transportation to medical appointments?: No Do you have trouble paying your heating and electricity bill?: No Do you have trouble taking care of your child, family member or friend?: No Do you have trouble with day-to-day activities such as bathing, preparing meals, shopping, managing finances, etc.?: No Are you currently unemployed and looking for a job?: No Are you interested in more education?: No Please select the resources that you would like help with: None Currently or been in a relationship where the following occur: no concerns reported AUDIT C Alcohol Use Questionnaire (AUDIT-C) 1. How often do you have a drink containing alcohol?: 2-3 times a week 2. How many drinks containing alcohol do you have on a typical day when you are drinking?: 5 or 6 3. How often do you have six or more drinks on one occasion?: Weekly Total Score: 8 ADRIEL-7 AMB Questionnaire ADRIEL-7 Date ADRIEL - 7 assessed: 10/20/23 Feeling nervous, anxious, or on edge: 0 = Not at all Not being able to stop or control worryin = Not at all Worrying too much about different things: 0 = Not at all Trouble relaxin = Not at all Being so restless that it is hard to sit still: 0 = Not at all Becoming easily annoyed or irritable: 0 = Not at all Feeling afraid as if something awful might happen: 0 = Not at all Total ADRIEL-7 score (0-4 normal; 5-9 mild; 10-14 moderate; 15-21 severe): 0 Source: Developed by Drs. Jean Magana, Karol Jacob, Joo Gonzales and colleagues, with an educational cary from [employer]. ADRIEL-7 Assessment Billing ADRIEL-7 Assessment Tool: ADRIEL-7 Assessment 34091 Review of Systems Const All systems reviewed & are unremarkable except as noted in HPI and below Eyes Reports no additional complaints, Denies change in vision and Denies other visual disturbances Card Denies chest pain at rest, Denies chest pain with activity, Denies edema, Denies irregular heart rhythm, Denies claudication, Denies dyspnea, Denies dyspnea on exertion, Denies orthopnea, Denies paroxysmal nocturnal dyspnea and Denies slow heart rate Resp Denies cough, Denies dyspnea and Denies dyspnea on exertion GI Denies abdominal pain, Denies change in bowel habits, Denies excessive flatus, Denies nausea and Denies vomiting Denies urinary hesitancy, Denies urinary incontinence and Denies urinary urgency Musc Denies abnormal gait, Denies atrophy, Denies deformity and Denies limited range of motion Skin/Breast Denies bleeding lesions, Denies changing lesions and Denies rash Neuro Denies abnormal gait, Denies behavioral changes and Denies lack of coordination Psych Denies behavioral changes Physical exam (Primary Care) Vital Signs: Last Vital Signs Pulse 82 10/20/23 14:53 BP 120/80 10/20/23 14:53 Pulse Ox 98 10/20/23 14:53 Oxygen Delivery Method Room Air 10/20/23 14:53 BMI result Body Mass Index 25.9 Tobacco/Smoking Status: Tobacco use Status Tobacco use date assessed 10/20/23 10/20/23 15:02 Patient Tobacco Use Status Never used Tobacco 10/20/23 14:54 e-Cigarette/Vaping Use Never Used 10/20/23 14:54 PHQ-9: PHQ-9 Score PHQ-9: Total score 0 10/20/23 15:16 Depression Screening Interpretation: Negative Thrive Assessment: Date of Thrive Assessment Date Thrive assessed 10/20/23 10/20/23 14:57 Currently or been in a relationship where the following occur: no concerns reported Eyes General: appearance normal, both eyes and all related structures Eyelids: Yes eyelids normal Conjunctivae: conjunctivae normal Neck Neck: Yes normal visual inspection and Yes supple Resp Effort & Inspection: normal respiratory effort Auscultation: clear to auscultation bilaterally Cardio Jugular venous distension: no JVD Rate: regular rate Rhythm: regular rhythm Heart sounds: S1 normal heart sound present and S2 normal heart sound present Extrem General: Yes full ROM Office Procedures Flu Questionnaire Does the patient have a severe egg allergy?: No Does the patient have severe life threatening allergies?: No Does the patient have a fever or illness today?: No Has the patient ever had Guillain-Adams Syndrome?: No Has the patient ever had any past reaction to a flu shot?: No Results AMB Hemoglobin A1c AMB Hemoglobin A1c 11.4 % Last Edit by RAMA Ortega on 10/20/23 15:05 Immunizations flu vacc [id number] 6mos up(PF) 60 mcg(15 mcgx4)/0.5 mL IM syringe Performing Provider: Kylee Bui MD [place] [facility] [facility] Administered by: RAMA Ortega on 10/20/23 15:04 Dose Route Admin Location Dispensed Lot Number Expiration Date NDC Flight Security Specialist 0.5 mL IM Left Deltoid 0.5 mL [id number] 04/09/24 [id number] [employer] VIS Given Date VIS Provided VIS Publication Date 10/20/23 Single Vaccine 21 Eligibility Eligibility Date Funding Source Not VFC Eligible 10/20/23 Private Results Reviewed Results Reviewed: Laboratory Last Values Hgb A1c (Clinic) 11.4 % (4.0-6.0) H 10/20/23 15:04 Assessment and Plan Assessment & Plan (1) Diabetes: Code(s): E11.9 - Type 2 diabetes mellitus without complications Qualifiers: Diabetes mellitus type: type 2 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 A1c goal is equal or less than 7%. Follow-up with endocrinology. (2) Hyperlipidemia LDL goal <70: Code(s): E78.5 - Hyperlipidemia, unspecified Plan: Continue statins and ezetimibe. LDL goal is less than 70. Dietary changes were advised. (3) Chronic idiopathic constipation: Code(s): K59.04 - Chronic idiopathic constipation Plan: Continue docusate as needed. Orders: Orders Lipid Panel 6 Months E78.5 - Hyperlipidemia, unspecified Microalbumin, Random (w Creat) 6 Months E11.9 - Type 2 diabetes mellitus without complications Comprehensive [facility]. Panel Fast 6 Months E11.9 - Type 2 diabetes mellitus without complications AMB Hemoglobin A1c Today E11.9 - Type 2 diabetes mellitus without complications Influenza [id number] Immunization Today Z23 - Encounter for immunization Medications: Changed From insulin glargine (Lantus Solostar U-100 Insulin) 32 units (0.32 mL) subcut DAILY 90 days 28.8 mL 3RF To insulin glargine (Lantus Solostar U-100 Insulin) 35 units (0.35 mL) subcut DAILY 31.5 mL 3RF 90 days Coding Level of Care Code Est Pt Level 3 (95034) Diagnoses Type 2 diabetes mellitus with hyperglycemia, with long-term current use of insulin E11.65; Z79.4 Diabetes mellitus type: type 2 Diabetes mellitus detention insulin use: with termite exterminator helper use Diabetes mellitus complication status: with hyperglycemia Hyperlipidemia LDL goal <70 E78.5 Chronic idiopathic constipation K59.04 Additional Codes ADRIEL-7 Assessment Billing - ADRIEL-7 Assessment Tool: ADRIEL-7 Assessment 55111 ([id number]) Time Spent (min) 18
== END 2023-10-20 15:19 | disposition home or self-care (01) ==
PROVIDERS: PCP Internal Medicine; Visit Provider Internal Medicine
DX: E11.65 Type 2 diabetes mellitus with hyperglycemia (principal); Z79.4 Long term (current) use of insulin; E78.5 Hyperlipidemia, unspecified; Z23 Encounter for immunization; K59.04 Chronic idiopathic constipation
CPT/HCPCS: 83036; 90471; 90686; 99213

== ENCOUNTER 2024-02-23 15:21 | Outpatient (AMB) | payer OTHER, SELFPAY ==
[2024-02-23 15:23] VITALS: BP 122/80; BMI 25.0
--- NOTE | 2024-02-23 15:23 | MHC.PC.OV ---
Vital Signs 02/23/24 15:23 Height 5 ft 9 in Weight 169 lb BMI 25.0 BP 122/80 Blood Pressure Location Lt brachial Position Sitting Intake Visit Reasons: headaches Intake Note: Patient here c/o sharp headaches, blurry vision Tumbling Instructor Required: No Accompanied by: Self / Same As Patient Allergies No Known Allergies [No Known Allergies*] Allergy (Verified 02/23/24 15:40) Medication List - Last Reconciled 02/23/24 by Kylee Bui MD atorvastatin 80 mg PO BEDTIME 90 days blood sugar diagnostic (FreeStyle Lite Strips) TEST BLOOD SUGAR TWICE DAILY DIRECTED docusate sodium 100 mg PO DAILY PRN ezetimibe 10 mg PO DAILY 90 days flash glucose scanning reader (FreeStyle Cynthia 2 [place]) As directed flash glucose sensor (FreeStyle Cynthia 2 Sensor kit) As directed change every 14 days insulin glargine (Lantus Solostar U-100 Insulin) 35 units (0.35 mL) subcut DAILY 90 days lancets (TRUEplus Lancets) Use 1 lancet twice a day metformin 1,000 mg PO BID 90 days pen needle, diabetic (Easy Touch) Use 1 needle once a day semaglutide (Ozempic) 0.5 mg (0.736 mL) subcut QWEEK Tobacco use date assessed: 10/20/23 Dental Screening Dental Screen Date: 10/20/23 HPI HPI Comments History of Present Illness Details This is a 53-year-old male with diabetes mellitus type 2 on long-term current use of insulin, hyperlipidemia, and chronic constipation that complains of a headache that started yesterday and is still present. No photosensitivity. No blurry vision. No neurological deficit. I will start him on sumatriptan as needed. A1c elevated and I will increase Lantus from 35 units to 40 units. I will also increase Ozempic. Lipid panel will be order. Constipation stable with medications. [facility] Medical History (Updated 02/23/24 @ 16:10 by Kylee Bui MD) Diabetes Left hemiplegia Poor compliance USP (current) use of insulin Nausea Dyslipidemia COVID-19 Diabetes Surgical History No pertinent past surgical history Family History Father Stroke Mother No problems noted. Sister Diabetes Social History Household Members: Spouse Housing: House Do you presently have visiting nurse or other home services: No Alcohol intake: never Patient Tobacco Use Status: Never used Tobacco e-Cigarette/Vaping Use: Never Used Second Hand Smoke Exposure: No service: No Current occupational status: employed Current occupational exposures/hazards: No Cognitive needs: No Hearing needs: No Vision needs: No Questionnaire Thrive Questionnaire Date Thrive assessed: 10/20/23 ADRIEL-7 AMB Questionnaire ADRIEL-7 Date ADRIEL - 7 assessed: 10/20/23 Source: Developed by Drs. Jean Magana, Karol Jacob, Joo Gonzales and colleagues, with an educational cary from [employer]. Review of Systems Const All systems reviewed & are unremarkable except as noted in HPI and below Eyes Reports no additional complaints, Denies change in vision and Denies other visual disturbances Card Denies chest pain at rest, Denies chest pain with activity, Denies edema, Denies irregular heart rhythm, Denies claudication, Denies dyspnea, Denies dyspnea on exertion, Denies orthopnea, Denies paroxysmal nocturnal dyspnea and Denies slow heart rate Resp Denies cough, Denies dyspnea and Denies dyspnea on exertion GI Denies abdominal pain, Denies change in bowel habits, Denies excessive flatus, Denies nausea and Denies vomiting Physical exam (Primary Care) Vital Signs: Last Vital Signs BP 122/80 02/23/24 15:23 BMI result Body Mass Index 25.0 Tobacco/Smoking Status: Tobacco use Status Tobacco use date assessed 10/20/23 02/23/24 15:25 Patient Tobacco Use Status Never used Tobacco 02/23/24 15:25 e-Cigarette/Vaping Use Never Used 02/23/24 15:25 Thrive Assessment: Date of Thrive Assessment Date Thrive assessed 10/20/23 02/23/24 15:25 Resp Effort & Inspection: normal respiratory effort Auscultation: clear to auscultation bilaterally Cardio Jugular venous distension: no JVD Rate: regular rate Rhythm: regular rhythm Heart sounds: S1 normal heart sound present and S2 normal heart sound present Extrem General: Yes full ROM Results AMB Hemoglobin A1c AMB Hemoglobin A1c 11.0 % Last Edit by SUMMER Shay on 02/23/24 15:36 Results Reviewed Results Reviewed: Laboratory Last Values Hgb A1c (Clinic) 11.0 % (4.0-6.0) H 02/23/24 15:30 Assessment and Plan Assessment & Plan (1) Diabetes mellitus, with long-term current use of insulin: Code(s): E11.9 - Type 2 diabetes mellitus without complications; 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 Increase Ozempic. A1c goal is equal or less than 7%. (2) Hyperlipidemia LDL goal <70: Code(s): E78.5 - Hyperlipidemia, unspecified Plan: Continue statins. LDL goal is less than 70. (3) Headache: Code(s): R51.9 - Headache, unspecified Qualifiers: Headache type: tension-type Headache chronicity pattern: acute headache Intractability: not intractable Qualified Code(s): G44.209 - Tension-type headache, unspecified, not intractable Plan: Start sumatriptan as needed. (4) Chronic idiopathic constipation: Code(s): K59.04 - Chronic idiopathic constipation Plan: Continue docusate as needed for constipation. Orders: Orders AMB Hemoglobin A1c Today E11.65 - Type 2 diabetes mellitus with hyperglycemia, Z79.4 - anthropology instructor (current) use of insulin Medications: New semaglutide (Ozempic) 1 mg (0.75 mL) subcut QWEEK 30 days 3.75 mL 3RF E11.65 - Type 2 diabetes mellitus with hyperglycemia, Z79.4 - anthropology instructor (current) use of insulin sumatriptan succinate do not exceed 8 doses per 24 hrs 25 mg PO Q2-4H 30 days PRN 9 tabs 2RF migraine headache Changed From insulin glargine (Lantus Solostar U-100 Insulin) 35 units (0.35 mL) subcut DAILY 90 days 31.5 mL 3RF To insulin glargine (Lantus Solostar U-100 Insulin) 40 units (0.4 mL) subcut DAILY 90 days 36 mL 3RF Discontinued semaglutide (Ozempic) Discontinued Reason: Patient Completed Course 0.5 mg (0.736 mL) subcut QWEEK 3 mL 5RF Coding Level of Care Code Est Pt Level 4 (14882) Diagnoses Diabetes mellitus, with long-term current use of insulin E11.9; Z79.4 Hyperlipidemia LDL goal <70 E78.5 Acute non intractable tension-type headache G44.209 Headache type: tension-type Headache chronicity pattern: acute headache Intractability: not intractable Chronic idiopathic constipation K59.04 Time Spent (min) 20
== END 2024-02-23 15:48 | disposition home or self-care (01) ==
LOC: HO.HMGH 15:21
PROVIDERS: PCP Internal Medicine; Visit Provider Internal Medicine
DX: E11.9 Type 2 diabetes mellitus without complications (principal); Z79.4 Long term (current) use of insulin; E78.5 Hyperlipidemia, unspecified; G44.209 Tension-type headache, unspecified, not intractable; K59.04 Chronic idiopathic constipation; E11.65 Type 2 diabetes mellitus with hyperglycemia
CPT/HCPCS: 83036; 99214

== ENCOUNTER 2024-04-25 14:10 | Outpatient (AMB) | payer OTHER, SELFPAY ==
[2024-04-25 14:14] VITALS: BP 118/80; BMI 24.2
--- NOTE | 2024-04-25 14:14 | A.OFFPC_ITS ---
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 Accompanied by: Self / Same As Patient Allergies No Known Allergies [No Known Allergies*] Allergy (Verified 04/25/24 14:21) Medication List - Last Reconciled 04/25/24 by Kylee Bui MD atorvastatin 80 mg PO BEDTIME 90 days blood sugar diagnostic (FreeStyle Lite Strips) TEST BLOOD SUGAR TWICE DAILY DIRECTED docusate sodium 100 mg PO DAILY PRN ezetimibe 10 mg PO DAILY 90 days flash glucose scanning reader (FreeStyle Cynthia 2 [place]) As directed flash glucose sensor (FreeStyle Cynthia 2 Sensor kit) As directed change every 14 days insulin glargine (Lantus Solostar U-100 Insulin) 40 units (0.4 mL) subcut DAILY 90 days lancets (TRUEplus Lancets) Use 1 lancet twice a day metformin 1,000 mg PO BID 90 days pen needle, diabetic (Easy Touch) Use 1 needle once a day semaglutide (Ozempic) 1 mg (0.75 mL) subcut QWEEK 30 days sumatriptan succinate 25 mg PO Q2-4H PRN 30 days Tobacco use date assessed: 10/20/23 Dental Screening Dental Screen Date: 10/20/23 HPI HPI Comments History of Present Illness Details This is a 53-year-old male with diabetes mellitus type 2 on long-term current use of insulin, hyperlipidemia, complicated migraine and constipation that comes today for follow-up on his conditions. A1c was elevated and I will increase insulin. Labs were not done and last LDL was elevated. I will repeat fasting labs. Constipation and migraines controlled with medications as needed. No chest pain or shortness on breath. 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 Sister Diabetes Social History Household Members: Spouse Housing: House Do you presently have visiting nurse or other home services: No Alcohol intake: never Patient Tobacco Use Status: Never used Tobacco e-Cigarette/Vaping Use: Never Used Second Hand Smoke Exposure: No service: No Current occupational status: employed Current occupational exposures/hazards: No Cognitive needs: No Hearing needs: No Vision needs: No Questionnaire Thrive Questionnaire Date Thrive assessed: 10/20/23 ADRIEL-7 AMB Questionnaire ADRIEL-7 Date ADRIEL - 7 assessed: 10/20/23 Source: Developed by Drs. Jean Magana, Karol Jacob, Joo Gonzales and colleagues, with an educational cary from [employer]. Review of Systems Const All systems reviewed & are unremarkable except as noted in HPI and below Card Denies chest pain at rest, Denies chest pain with activity, Denies edema, Denies irregular heart rhythm, Denies claudication, Denies dyspnea, Denies dyspnea on exertion, Denies orthopnea, Denies paroxysmal nocturnal dyspnea and Denies slow heart rate Resp Denies cough, Denies dyspnea and Denies dyspnea on exertion GI Denies abdominal pain, Denies change in bowel habits, Denies excessive flatus, Denies nausea and Denies vomiting Physical exam (Primary Care) Vital Signs: Last Vital Signs BP 118/80 04/25/24 14:14 BMI result Body Mass Index 24.2 Tobacco/Smoking Status: Tobacco use Status Tobacco use date assessed 10/20/23 04/25/24 14:19 Patient Tobacco Use Status Never used Tobacco 04/25/24 14:19 e-Cigarette/Vaping Use Never Used 04/25/24 14:19 Thrive Assessment: Date of Thrive Assessment Date Thrive assessed 10/20/23 04/25/24 14:19 Resp Effort & Inspection: normal respiratory effort Auscultation: clear to auscultation bilaterally Cardio Jugular venous distension: no JVD Rate: regular rate Rhythm: regular rhythm Heart sounds: S1 normal heart sound present and S2 normal heart sound present Extrem General: Yes full ROM Assessment and Plan Assessment & Plan (1) Diabetes mellitus, with long-term current use of insulin: Code(s): E11.9 - Type 2 diabetes mellitus without complications; Z79.4 - care home (current) use of insulin Plan: Continue metformin. Increase insulin. A1c goal is equal or less than 7%. Continue Ozempic. (2) Chronic idiopathic constipation: Code(s): K59.04 - Chronic idiopathic constipation Plan: Continue docusate. Try to follow a high-fiber diet. (3) Hyperlipidemia LDL goal <70: Code(s): E78.5 - Hyperlipidemia, unspecified Plan: Continue statins and Zetia. Repeat lipid panel. LDL goal is less than 70. (4) Complicated migraine: Code(s): G43.109 - Migraine with aura, not intractable, without status migrainosus Plan: Continue Triptan as needed. Orders: Orders Lipid Panel Today E78.5 - Hyperlipidemia, unspecified Microalbumin, Random (w Creat) Today E11.9 - Type 2 diabetes mellitus without complications Vitamin D 25-OH Total Today E55.9 - Vitamin D deficiency, unspecified Comprehensive [place]. Panel Fast Today E11.9 - Type 2 diabetes mellitus without complications, Z79.4 - care home (current) use of insulin Medications: Changed From insulin glargine (Lantus Solostar U-100 Insulin) 40 units (0.4 mL) subcut DAILY 90 days 36 mL 3RF To insulin glargine (Lantus Solostar U-100 Insulin) 43 units (0.43 mL) subcut DAILY 38.7 mL 3RF 90 days Refilled semaglutide (Ozempic) 1 mg (0.75 mL) subcut QWEEK 3.75 mL 3RF 30 days E11.65 - Type 2 diabetes mellitus with hyperglycemia, Z79.4 - care home (current) use of insulin Coding Level of Care Code Est Pt Level 4 (50277) Complex EM visit Add On G2211 Diagnoses Diabetes mellitus, with long-term current use of insulin E11.9; Z79.4 Chronic idiopathic constipation K59.04 Hyperlipidemia LDL goal <70 E78.5 Complicated migraine G43.109 Time Spent (min) 23
== END 2024-04-25 14:33 | disposition home or self-care (01) ==
PROVIDERS: PCP Internal Medicine; Visit Provider Internal Medicine
DX: E11.9 Type 2 diabetes mellitus without complications (principal); Z79.4 Long term (current) use of insulin; K59.04 Chronic idiopathic constipation; E78.5 Hyperlipidemia, unspecified; G43.109 Migraine with aura, not intractable, without status migrainosus
CPT/HCPCS: 99214; G2211

== ENCOUNTER 2024-05-10 08:44 | Outpatient (REF) | payer OTHER, SELFPAY ==
[2024-05-10 10:17] LABS: Alanine Aminotransferase 20 U/L (0-40); Albumin Level 4.1 g/dL (3.5-5.0); Alkaline Phosphatase 105 U/L (39-117); Anion Gap 8 (12-20); Aspartate Amino Transferase 15 U/L (5-37); Bilirubin Total 1.7 mg/dL (0.0-1.0); Blood Urea Nitrogen 17 mg/dL (9-16); Calcium 9.2 mg/dL (8.4-10.2); Carbon Dioxide 29 mmol/L (22-29); Chloride 105 mmol/L (96-108); Cholesterol 203 mg/dL (<200); Estimated Glomerular Filt Rate > 60; Glucose Fasting 170 mg/dL (60-99); HDL Cholesterol 63 mg/dL (>40); LDL Cholesterol Calculated 126 mg/dL (<100); Potassium 3.8 mmol/L (3.3-5.1); Sodium 138 mmol/L (135-145); Total Protein 6.7 g/dL (6.5-8.0); Triglycerides 72 mg/dL (<150)
[2024-05-10 10:20] LABS: Vitamin D 25-OH Total 34.6 ng/mL (>30)
[2024-05-10 11:42] LABS: Creatinine Urine 233.26 mg/dL; Microalbum/Creatinine Ratio Ur 6.8 ug/mg cr (<30)
== END 2024-05-10 08:45 | disposition home or self-care (01) ==
LOC: HO.LAB 08:44
PROVIDERS: PCP Internal Medicine; Visit Provider Internal Medicine
DX: E11.9 Type 2 diabetes mellitus without complications (principal); E78.5 Hyperlipidemia, unspecified; E55.9 Vitamin D deficiency, unspecified
CPT/HCPCS: 36415; 80053; 80061; 82043; 82306; 82570

== ENCOUNTER 2025-08-13 10:15 | Emergency (ER) | payer OTHER, SELFPAY ==
--- NOTE | ~2025-08-13 | XR_ITS ---
EXAMINATION: XR FOOT, RIGHT CLINICAL INFORMATION: lump, pain COMPARISON: None available. TECHNIQUE: AP, lateral, and oblique views of the right foot. FINDINGS: There is no acute fracture. There are no degenerative changes. There are small enthesophytes the calcaneal insertion of Achilles tendon and plantar fascia. XR/XR foot RT min 3V IMPRESSION: No acute abnormality. There are small calcaneal spurs. Electronically signed by: Leon Ellington MD 08/13/2025 10:57 AM [facility]
--- NOTE | 2025-08-13 10:16 | ED_ITS ---
HPI - General Adult General Chief complaint: Extremity Problem Stated complaint: bump under foot, diabetic Time Seen by Provider: 08/13/25 12:23 Source: patient and workers compensation analyst (Tristanian) Mode of arrival: ambulatory Limitations: language barrier (macanese) History of Present Illness ED Provider: JACKIE KHAN PA-C HPI narrative: 54-year-old male with pmhx significant for diabetes presents to the ED today for evaluation bump to the bottom of his right foot. He first noticed this 3 weeks ago. Reports pain to the area, only on standing and ambulating. No radiation. Denies difficulty ambulating. He states that his job requires him to stand and walk for a majority of the day. He has not trialed anything for the pain. Denies open wound. Denies injury or trauma to the area. He is also noted to be hyperglycemic. He states he forgot to take his insulin this morning. He is normally compliant with this. Denies nausea, vomiting, diarrhea, abdominal pain, headaches, dizziness, increased thirst. Related Data Previous Rx's ?Medication ?Instructions ?Recorded atorvastatin 80 mg tablet 80 mg PO BEDTIME 90 days #90 tabs 05/23/25 blood sugar diagnostic (FreeStyle #50 strips 05/23/25 Lite Strips) docusate sodium 100 mg capsule 100 mg PO DAILY PRN Con stipation 05/23/25 #30 caps ezetimibe 10 mg tablet 10 mg PO DAILY 90 days #90 t abs 05/23/25 flash glucose scanning reader #1 ea 05/23/25 (FreeStyle Cynthia 2 [place]) flash glucose sensor (FreeStyle #2 ea 05/23/25 Cynthia 2 Sensor kit) insulin glargine 100 unit/mL (3 43 unit (0.43 mL) subc ut DAILY 90 05/23/25 mL) subcutaneous pen (Lantus days #38.7 mL Solostar U-100 Insulin) lancets 33 gauge (TRUEplus Lancets) #200 ea 05/23/25 metformin 1,000 mg tablet 1,000 mg PO BID 90 days #180 tabs 05/23/25 pen needle, diabetic 31 gauge x #100 ea 05/23/25 3/16 (Easy Touch) semaglutide 1 mg/dose (4 mg/3 mL) 1 mg (0.75 mL) subcu t QWEEK 30 05/23/25 subcutaneous pen injector (Ozempic) days #3.75 mL sumatriptan succinate 25 mg tablet 25 mg PO Q2-4H PRN migraine 05/23/25 headache 30 days #9 tabs Allergies Allergy/AdvReac Type Severity Reaction Status Date / Time No Known Allergies (No Known Allergy Verified 08/13/25 10:19 Allergies*) Review of Systems 2 Review of Systems: Yes all other systems are reviewed and are negative PMFSH Past Medical History Attestation statement: The following information was validated with the patient. 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 Sister Diabetes Social History Social History Household Members: Spouse Housing: House Do you presently have visiting nurse or other home services: No Alcohol intake: never Patient Tobacco Use Status: Never used Tobacco e-Cigarette/Vaping Use: Never Used Second Hand Smoke Exposure: No service: No Current occupational status: employed Current occupational exposures/hazards: No Cognitive needs: No Hearing needs: No Vision needs: No Physical Exam ED Vital Signs: Vital Signs - 24 hr 08/13/25 10:18 08/13/25 12:44 08/13/25 14:16 Temperature 97.5 F 97.7 F Pulse Rate 79 67 61 Respiratory Rate 18 18 18 Blood Pressure 146/76 H 135/75 126/74 Pulse Oximetry 96 97 98 Oxygen Delivery Method Room Air Room Air Room Air 08/13/25 14:48 Temperature 97.8 F Pulse Rate 61 Respiratory Rate 18 Blood Pressure 126/74 Pulse Oximetry 98 Oxygen Delivery Method Room Air BMI result Body Mass Index 27.7 patient is hypertensive, vitals are otherwise wnl General: Well appearing, in no acute distress. Skin: Warm, dry, intact. No rashes or lesions. Head: Normocephalic, atraumatic. EENT: Hearing is intact b/l. Moist mucous membranes.? Cardiac: Chest wall symmetric. RRR Lungs: Normal respiratory effort without accessory muscle use. CTA bilaterally Ext: +on exam there is a 2cm x2cm palpable firm, somewhat mobile, mass to the medial plantar aspect of right foot. no overlying erythema or pointing. no open wounds. no palpable warmth, fluctuance. no tenderness over plantar fascia or achilles tendon insertion. no calf tenderness. Neuro: AOx3. Normal speech. Ambulating with steady gait Course Course Course Narrative: Rapid medical examination performed in triage by Teresa Zaldivar PA-C: Patient is a 54 year old assigned male at presenting to the emergency department with 2 bumps to the bottom of his right foot. Patient states over the last 3 week has had pain to the bottom part of his right foot and it is not improving. Patient states that he is a diabetic. Detailed physical exam and review of systems are deferred to the power lineworker. Imaging and labs ordered. Patient placed back in the waiting room pending room availability and results. Reevaluation(s) Reevaluation #1: CBC without leukocytosis. No left shift. No anemia, h&h stable. Chemistry without acute electrolyte abnormalities requiring intervention. No lloyd. Liver function around baseline. Glucose 366 - no anion gap. ESR wnl. CRP mildly elevated, possibly secondary to his hyperglycemia. > medicated w/ 1L IVF and 5 units insulin, repeat POC 209. > XR right foot unremarkable. Patient?s exam is consistent with a neuroma. Treated w/ IV Tylenol. Advised f/u with podiatry - referral provided.? Patient has remained stable throughout ED visit today. Discussed worrisome signs and symptoms and when to return to the ED. All questions answered at this time. Patient is agreeable with disposition and stable for discharge. Medications Administered Discontinued Medications Generic Name Dose Route Start Last Admin Trade Name Freq PRN Reason Stop Dose Admin Sodium Chloride 1,000 mls @ 999 mls/hr 08/13/25 12:45 08/13/25 14:47 Ns IV 08/13/25 13:45 Infused .Q1H1M ANGELLA Infusion Acetaminophen 1,000 mg in 100 mls @ 400 mls/hr 08/13/25 12:57 08/13/25 13:20 Ofirmev IV 08/13/25 13:11 Infused ONCE ONE Infusion Insulin Human Regular 5 unit 08/13/25 12:32 08/13/25 13:00 Insulin Regular, Human 100 Unit/Ml 10 Ml Vial IVPUSH 08/13/25 12:33 5 unit ONCE ONE Administration Medical Decision Making Medical Decision Making [facility] Narrative: 54-year-old male with pmhx significant for diabetes presents to the ED today for evaluation bump to the bottom of his right foot. Differential diagnosis includes lipoma, tissue mass, neuroma, plantar fasciitis, abscess. unlikely osteomyelitis, dvt, fracture, arterial occlusion, varicose veins. Labs, and imaging obtained from triage. Will order IV tylenol. Given hyperglycemia - will treat with 1L IVF and 5 units insulin with plan to recheck POC. He is not in DKA. Differential Diagnosis Differential Diagnoses: The differential diagnosis associated with the presentation includes as above. Admission/Observation not indicated. Lab Data [facility] Lab Attestation statement: I reviewed the patient's lab results. as above. 08/13/25 10:42 08/13/25 10:42 Labs: Lab Results 08/13/25 08/13/25 Range/Units 10:42 14:13 WBC 6.9 (4.8-10.8) X10*3/uL RBC 5.29 (4.60-5.80) X10*6/uL Hgb 16.5 (14.0-18.0) g/dl Hct 47.0 (42.0-52.0) % MCV 88.8 (80.0-98.0) fL MCH 31.2 (27.0-33.0) pg MCHC 35.1 (31.0-36.0) g/dl RDW 11.2 (11.0-16.0) % Plt Count 178 (160-400) X10*3/uL MPV 11.5 (9.4-12.4) fL Immature Gran % (Auto) 0.1 (0.0-0.4) % Neut % (Auto) 67.7 (45-73) % Lymph % (Auto) 20.9 (20-40) % Hudson % (Auto) 7.6 (2-11) % Eos % (Auto) 3.1 (0-4) % Baso % (Auto) 0.6 (0-2) % Lymph # (Auto) 1.4 (1.2-4.9) X10*3/uL Hudson # (Auto) 0.5 (0.1-1.2) X10*3/uL Eos # (Auto) 0.2 (0.0-0.4) X10*3/uL Baso # (Auto) 0.0 (0.0-0.2) X10*3/uL Abs Immat Gran (auto) 0.01 (0.00-0.03) X10*3/uL Absolute Neuts (auto) 4.6 (2.0-8.3) x10*3/uL Absolute Nucleated RBC 0.000 (0.0-0.012) X10*3/uL Nucleated RBC % (auto) 0.0 (0.0-0.2) /100WBC ESR 3 (0-15) MM/HR Sodium 137 (135-145) mmol/L Potassium 4.7 D (3.3-5.1) mmol/L Chloride 104 (96-108) mmol/L Carbon Dioxide 25 (22-29) mmol/L Anion Gap 13 (12-20) BUN 23 H (9-16) mg/dL Creatinine 0.84 (0.5-1.4) mg/dL Estim Creat Clear Calc 101.9 Estimated GFR > 60 POC Glucose 209 H (60-115) mg/dL Random Glucose 366 H* (60-115) mg/dL Calcium 9.3 (8.4-10.2) mg/dL Total Bilirubin 1.6 H (0.0-1.0) mg/dL AST 23 (5-37) U/L ALT 31 (0-40) U/L Alkaline Phosphatase 156 H (39-117) U/L C-Reactive Protein 0.52 H (< or = 0.50) mg/dL Total Protein 7.2 (6.5-8.0) g/dL Albumin 4.4 (3.5-5.0) g/dL Independent Interpretation I performed an independent interpretation of an: Plain X-Ray Interpretation: xr right foot without fracture Radiology Impression Discussion of test interpretation with radiology: I have reviewed the radiologist's reading. Radiologist Impression: Procedure(s): XR foot RT min 3V Accession Number(s): [id number] cc: Teresa Zaldivar; Kylee Louis MD~ Reason for Exam: lump, pain EXAMINATION: XR FOOT, RIGHT CLINICAL INFORMATION: lump, pain COMPARISON: None available. TECHNIQUE: AP, lateral, and oblique views of the right foot. FINDINGS: There is no acute fracture. There are no degenerative changes. There are small enthesophytes the calcaneal insertion of Achilles tendon and plantar fascia. XR/XR foot RT min 3V IMPRESSION: No acute abnormality. There are small calcaneal spurs. Electronically signed by: Leon Ellington MD 08/13/2025 10:57 AM EST External Record Review External record reviewed: Inpatient record Prescription Management I considered prescription management with: Pain Medication Chronic Conditions Patient?s care impacted by: Diabetes Social Determinants Patient?s care significantly limited by Social Determinants of Health including: Other Social Determinant of Health Critical Care Time Critical Care Time Critical Care Time: No Discharge Plan Discharge Clinical Impression: Plantar neuroma of right foot, Hyperglycemia Patient Disposition: Home, Self-Care Instructions: Harper Neuroma (ED), Neuroma Excision (DC) Additional Instructions: You were evaluated in the ED today for a bump to the bottom of your right foot. I suspect this is a neuroma, which is a growth of nerve tissue. There are no signs of open wounds or infection. Please follow up with podiatry. You have been provided with a referral. Call them to establish care, they will not call you. In the meantime, you may take tylenol or motrin at home as needed for pain. Additionally, your blood sugar was noted to be elevated - likely due to you not taking your insulin this morning. You were treated with IV fluids and insulin in ED. Please monitor your blood sugar at home and make sure you are compliant with your insulin. Return with any new or worsening symptoms. In the case of an emergency call 911. Prescriptions: No Action atorvastatin 80 mg tablet 80 mg PO BEDTIME 90 Days Qty: 90 2RF (DME) FreeStyle Lite Strips Strip See Rx Instructions .ROUTE .COMPLEX Qty: 50 2RF Dose Instruction: TEST BLOOD SUGAR TWICE DAILY DIRECTED Rx Instructions: TEST BLOOD SUGAR TWICE DAILY DIRECTED docusate sodium 100 mg capsule 100 mg PO DAILY PRN (Reason: Constipation) Qty: 30 0RF ezetimibe 10 mg tablet 10 mg PO DAILY 90 Days Qty: 90 1RF (DME) FreeStyle Cynthia 2 [place] Misc See Rx Instructions .Route Qty: 1 0RF Rx Instructions: As directed (DME) FreeStyle Cynthia 2 Sensor Kit See Rx Instructions .Route Qty: 2 11RF Rx Instructions: As directed change every 14 days insulin glargine [Lantus Solostar U-100 Insulin] 100 unit/mL (3 mL) insulin pen 43 unit subcut DAILY 90 Days Qty: 38.7 3RF (DME) lancets [TRUEplus Lancets] 33 gauge misc See Rx Instructions .Route Qty: 200 2RF Rx Instructions: Use 1 lancet twice a day metformin 1,000 mg tablet 1,000 mg PO BID 90 Days Qty: 180 2RF (DME) pen needle, diabetic [Easy Touch] 31 gauge x 3/16 needle See Rx Instructions .ROUTE .MEDSUPPLY Qty: 100 11RF Rx Instructions: Use 1 needle once a day Ozempic 1 mg/dose (4 mg/3 mL) pen injector 1 mg subcut QWEEK 30 Days Qty: 3.75 3RF sumatriptan succinate 25 mg tablet 25 mg PO Q2-4H PRN (Reason: migraine headache) 30 Days Qty: 9 2RF Rx Instructions: do not exceed 8 doses per 24 hrs Referrals: [facility] [place] Podiatry [Provider Group, Podiatry] Kylee Louis MD [Primary Care Provider, Internal Medicine] Stand Alone Forms: Work/School Release Interventions: ED Discharge Assessment Last Done: 08/13/25 14:48 Discharge Date/Time: 08/13/25 14:48 Print Language: Tristanian
[2025-08-13 10:18] VITALS: BP 146/76; PULSE 79; RESP 18; TEMP 36.4; O2SAT 96; BMI 27.7
[2025-08-13 10:50] LABS: MANUAL DIFF FLAG NO
[2025-08-13 10:53] LABS: Hematocrit 47.0 % (42.0-52.0); Hemoglobin 16.5 g/dl (14.0-18.0); Imm Gran Abs Auto 0.01 X10*3/uL (0.00-0.03); Imm Gran Pct Auto 0.1 % (0.0-0.4); Lymphocytes Absolute Auto 1.4 X10*3/uL (1.2-4.9); Mean Corpuscular HGB Conc 35.1 g/dl (31.0-36.0); Mean Corpuscular Hemoglobin 31.2 pg (27.0-33.0); Mean Corpuscular Volume 88.8 fL (80.0-98.0); NRBC Abs Auto 0.000 X10*3/uL (0.0-0.012); NRBC Pct Auto 0.0 /100WBC (0.0-0.2); Platelet Count 178 X10*3/uL (160-400); Red Blood Count 5.29 X10*6/uL (4.60-5.80); White Blood Count 6.9 X10*3/uL (4.8-10.8)
[2025-08-13 11:15] LABS: Alanine Aminotransferase 31 U/L (0-40); Albumin Level 4.4 g/dL (3.5-5.0); Alkaline Phosphatase 156 U/L (39-117); Anion Gap 13 (12-20); Aspartate Amino Transferase 23 U/L (5-37); Blood Urea Nitrogen 23 mg/dL (9-16); Calcium 9.3 mg/dL (8.4-10.2); Carbon Dioxide 25 mmol/L (22-29); Chloride 104 mmol/L (96-108); Creatinine Clr Calc Pharmacy 101.9; Estimated Glomerular Filt Rate > 60; Potassium 4.7 mmol/L (3.3-5.1); Sodium 137 mmol/L (135-145); Total Protein 7.2 g/dL (6.5-8.0)
[2025-08-13 11:33] LABS: Erythrocyte Sedimentation Rate 3 MM/HR (0-15)
[2025-08-13 12:44] VITALS: BP 135/75; PULSE 67; RESP 18; TEMP 36.5; O2SAT 97
[2025-08-13 14:16] VITALS: BP 126/74; PULSE 61; RESP 18; O2SAT 98
[2025-08-13 14:17] LABS: Glucose, Whole Blood 209 mg/dL (60-115)
[2025-08-13 14:48] VITALS: BP 126/74; PULSE 61; RESP 18; TEMP 36.6; O2SAT 98
== END 2025-08-13 14:48 | disposition home or self-care (01) ==
PROVIDERS: Physician Assistant Medical; Emergency Provider Emergency Medicine; PCP Internal Medicine
DX: G57.61 Lesion of plantar nerve, right lower limb (principal); E11.65 Type 2 diabetes mellitus with hyperglycemia; Z79.4 Long term (current) use of insulin; I10 Essential (primary) hypertension; G81.94 Hemiplegia, unspecified affecting left nondominant side; Z79.899 Other long term (current) drug therapy
CPT/HCPCS: 36415; 73630; 80053; 82947; 85025; 85652; 86140; 96361; 96374; 96375; 99284; J0131

== ENCOUNTER → 2025-08-13 10:22 | Outpatient (BNV) | payer OTHER, SELFPAY | PROVIDERS: PCP Internal Medicine; Visit Provider Radiology Diagnostic Radiology | DX: M77.31 Calcaneal spur, right foot (principal) | CPT/HCPCS: 73630 ==

== ENCOUNTER 2025-08-17 15:12 | Outpatient (AMB) | payer OTHER, SELFPAY ==
--- NOTE | 2025-08-17 15:21 | A.OFFPC_ITS ---
Vital Signs 3 08/17/25 15:22 Height 5 ft 7 in Weight 176 lb 2 oz BMI 27.6 BP 128/82 Blood Pressure Location Lt brachial Position Sitting Respiration 18 Pulse 84 Pulse Source Pulse Oximeter Temp Source Temporal Artery Scan Pulse Oximetry (%) 96 Oxygen Delivery Method Room Air Intake Visit Reasons: f/u [facility] [place] 08/13/25 [place] Applier Required: No Accompanied by: Self / Same As Patient Allergies No Known Allergies (No Known Allergies*) Allergy (Verified 08/17/25 15:30) Medication List - Last Reconciled 08/17/25 by Silvia Peña NP atorvastatin 80 mg PO BEDTIME 90 days blood sugar diagnostic (FreeStyle Lite Strips) TEST BLOOD SUGAR TWICE DAILY DIRECTED docusate sodium 100 mg PO DAILY PRN ezetimibe 10 mg PO DAILY 90 days flash glucose scanning reader ([employer] Cynthia 2 [place]) As directed flash glucose sensor (FreeStyle Cynthia 2 Sensor kit) As directed change every 14 days insulin glargine (Lantus Solostar U-100 Insulin) 43 units (0.43 mL) subcut DAILY 90 days lancets (TRUEplus Lancets) Use 1 lancet twice a day metformin 1,000 mg PO BID 90 days pen needle, diabetic (Easy Touch) Use 1 needle once a day sumatriptan succinate 25 mg PO Q2-4H PRN 30 days Tobacco use date assessed: 08/17/25 Dental Screening Dental Screen Date: 08/17/25 Did you have a dental visit in the last 12 months?: No Did you have a dental problem in the last 6 months where you did not have access to dental care?: No Was dental information given to patient?: No HPI HPI Comments 2 History of Present Illness0 Details 54-year-old Sami-speaking male preslizette for evaluation and follow-up after recent ED visit at [facility] [place] on 08/13 for a ?lump? to the bottom of his right foot. He first noticed the lump approximately 3 weeks ago. Reports localized pain to the area, worse with standing or ambulating. Denies radiation of pain, numbness, tingling, or weakness. No difficulty ambulating. States his occupation requires prolonged standing and walking. Has not tried any treatment or interventions for pain relief. 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 Sister Diabetes Social History Household Members: Spouse Housing: House Do you presently have visiting nurse or other home services: No Alcohol intake: never Patient Tobacco Use Status: Never used Tobacco e-Cigarette/Vaping Use: Never Used Second Hand Smoke Exposure: No service: No Current occupational status: employed Current occupational exposures/hazards: No Cognitive needs: No Hearing needs: No Vision needs: No Questionnaire PHQ-9 Over the last 2 weeks, how often have you been bothered by any of the following problems? 1. Little interest or pleasure in doing things: not at all 2. Feeling down, depressed, or hopeless: not at all 3. Trouble falling or staying asleep, or sleeping too much: not at all 4. Feeling tired or having little energy: not at all 5. Poor appetite or overeating: not at all 6. Feeling bad about yourself - or that you are a failure or have let yourself or your family down: not at all 7. Trouble concentrating on things, such as reading the newspaper or watching television: not at all 8. Moving or speaking so slowly that other people could have noticed. Or the opposite - being so fidgety or restless that you have been moving around a lot more than usual: not at all 9. Thoughts that you would be better off or of hurting yourself in some way: not at all Total score: 0 Source: Developed by Drs. Jean Magana, Karol Jacob, Joo Gonzales and colleagues, with an educational cary from [employer]. Thrive Questionnaire Date Thrive assessed: 08/17/25 I am a: Patient What is your living situation today?: I have a steady place to live Within the past 12 months, did the food you bought not last and you didn't have the money to get more?: I choose not to answer this question Within the past 12 months, did you worry whether your food would run out before you got money to buy more?: I choose not to answer this question Do you have trouble paying for medicines?: I choose not to answer this question Do you have trouble getting transportation to medical appointments?: I choose not to answer this question Do you have trouble paying your heating and electricity bill?: I choose not to answer this question Do you have trouble taking care of your child, family member or friend?: I choose not to answer this question Do you have trouble with day-to-day activities such as bathing, preparing meals, shopping, managing finances, etc.?: I choose not to answer this question Are you currently unemployed and looking for a job?: I choose not to answer this question Are you interested in more education?: I choose not to answer this question Please select the resources that you would like help with: None Currently or been in a relationship where the following occur: I choose not to answer THRIVE Score: 0 AUDIT C Alcohol Use Questionnaire (AUDIT-C) 1. How often do you have a drink containing alcohol?: Never Total Score: 0 ADRIEL-7 AMB Questionnaire ADRIEL-7 Date ADRIEL - 7 assessed: 08/17/25 Feeling nervous, anxious, or on edge: 0 = Not at all Not being able to stop or control worryin = Not at all Worrying too much about different things: 0 = Not at all Trouble relaxin = Not at all Being so restless that it is hard to sit still: 0 = Not at all Becoming easily annoyed or irritable: 0 = Not at all Feeling afraid as if something awful might happen: 0 = Not at all Total ADRIEL-7 score (0-4 normal; 5-9 mild; 10-14 moderate; 15-21 severe): 0 Source: Developed by Drs. Jean Magana, Karol Jacob, Joo Gonzales and colleagues, with an educational cary from [employer]. Review of Systems Const All systems reviewed & are unremarkable except as noted in HPI and below Physical exam (Primary Care) Vital Signs: Last Vital Signs Pulse 84 08/17/25 15:22 Resp 18 08/17/25 15:22 BP 128/82 11/07/25 15:22 Pulse Ox 96 08/17/25 15:22 Oxygen Delivery Method Room Air 08/17/25 15:22 BMI result Body Mass Index 27.6 Tobacco/Smoking Status: Tobacco use Status Tobacco use date assessed 08/17/25 08/17/25 15:25 Patient Tobacco Use Status Never used Tobacco 08/17/25 15:25 e-Cigarette/Vaping Use Never Used 08/17/25 15:25 PHQ-9: PHQ-9 Score PHQ-9: Total score 0 08/17/25 15:49 Thrive Assessment: Date of Thrive Assessment Date Thrive assessed 08/17/25 08/17/25 15:25 Currently or been in a relationship where the following occur: I choose not to answer Const General: no acute distress Nutritional Appearance: well nourished Orientation/consciousness: patient oriented x3 Neuro General: patient oriented x3, gait normal and moves all extremities Extrem Ankle/foot/toe images: 2 1. 2cm x2cm palpable firm, somewhat mobile, mass to the medial plantar aspect of right foot. No erythema, warmth, or drainage. No skin breakdown. Psych Speech and movement: Normal speech and movement present Coding Level of Care Code Est Pt Level 4 (55845) Diagnoses Harper's neuroma of right foot G57.61 Time Spent (min) 20 Assessment & Plan Assessment & Plan (1) Harper's neuroma of right foot: Code(s): G57.61 - Lesion of plantar nerve, right lower limb Category: Medical Plan: Likely plantar Harper Neuroma vs. plantar fascia nodule Differential: plantar fasciitis, ganglion cyst, callus, lipoma, Plantar fibroma. Recommend referral to Podiatry for further evaluation and management. Advise use of cushioned insoles or supportive footwear to reduce pressure. Recommend trial of NSAIDs (as tolerated) for pain control. Educate on limiting prolonged standing when possible. Orders: Orders 2 AMB Hemoglobin A1c Today Z13.9 - Encounter for screening, unspecified Referrals 2 Podiatry Referral G57.61 - Lesion of plantar nerve, right lower limb
[2025-08-17 15:22] VITALS: BP 128/82; PULSE 84; RESP 18; O2SAT 96; BMI 27.6
== END 2025-08-17 16:04 | disposition home or self-care (01) ==
LOC: HO.HMCH 15:12
PROVIDERS: PCP Internal Medicine; Visit Provider Nurse Practitioner Family
DX: Z13.9 Encounter for screening, unspecified (principal); G57.61 Lesion of plantar nerve, right lower limb

== ENCOUNTER → 2025-08-17 15:12 | Outpatient (BNVA) | payer OTHER, SELFPAY | PROVIDERS: PCP Internal Medicine; Visit Provider Nurse Practitioner Family | DX: G57.61 Lesion of plantar nerve, right lower limb (principal) | CPT/HCPCS: 83036; 99212 ==

== ENCOUNTER 2025-09-17 10:36 | Outpatient (AMB) | payer OTHER, SELFPAY ==
[2025-09-17 11:20] VITALS: BMI 27.4
--- NOTE | 2025-09-17 11:20 | A.OFFVIS_ITS ---
Vital Signs 09/17/25 11:20 Height 5 ft 7 in Weight 175 lb BMI 27.4 Intake Visit Reasons: Lesion of plantar nerve, right lower limb Intake Note: David is a 54 year old male who presents to the office today as a new patient visit for Lesion of plantar nerve, right lower limb referred by [facility] Primary care. Pt was Advised to use cushioned insoles or supportive footwear to reduce pressure. X-rays obtained on 08/13/25. Pt states he was doing some bottled therapy and he has purchased supportive shoe and has found a slight improvement. He is still experiencing pain and it has been going on for about 2 months and it is located on both feet but the pain is worst on his right foot. Patient is a diabetic and his last known glucose was around 170 and his last reported A1c was 11.5%. He experiences cramping without numbness or tingling in his feet. Transcriber Name: [id number] Allergies No Known Allergies (No Known Allergies*) Allergy (Verified 08/17/25 15:30) HPI HPI Lesion of plantar nerve, right lower limb: Details: 54-year-old male with past medical history of diabetes mellitus type 2, hyperlipidemia, presents for right heel pain. He has noticed that the pain started approximately 2 months ago. He describes the pain as worst in the 1st step in the morning and hurts throughout the day. Pain does improve by the nighttime. He describes it as a throbbing pain. Does not denies any burning numbness or tingling to his feet. He recently purchased supportive sneakers which he finds improvement from it. He is also doing daily range of motion and stretching exercises. 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 [facility] Medical History (Updated 09/17/25 @ 13:41 by Raf Gray DPM) Harper's neuroma of right foot Diabetes Left hemiplegia Poor compliance skilled nursing (current) use of insulin Nausea Dyslipidemia COVID-19 Diabetes Surgical History No pertinent past surgical history Family History Father Stroke Mother No problems noted. Sister Diabetes Social History Household Members: Spouse Housing: House Do you presently have visiting nurse or other home services: No Alcohol intake: never Patient Tobacco Use Status: Never used Tobacco e-Cigarette/Vaping Use: Never Used Second Hand Smoke Exposure: No service: No Current occupational status: employed Current occupational exposures/hazards: No Cognitive needs: No Hearing needs: No Vision needs: No Review of Systems Const All systems reviewed & are unremarkable except as noted in HPI and below Physical Exam Vital Signs: BMI result Body Mass Index 27.4 Extrem Other: *Bilateral Lower Extremity Focused Diabetic Foot Exam Vascular: DP/PT 2/4, CFT<3s to digits, TG warm to cool, no pedal edema, pedal hair absent Derm: Skin: No open lesions, ulcerations, or calluses. Interdigital spaces: Clear, no maceration or fungal infection. Nails: No onychomycosis, paronychia, or ingrown nails. Neuro: Protective sensation grossly intact to bilateral lower extremities Msk: Moderate tenderness on palpation of the plantar medial calcaneal tubercle right foot. Palpable non mobile firm nodular mass to the central plantar fascial band at the level of the midfoot bilateral feet, without pain on palpation. Ankle dorsiflexion 0 degrees on knee extension. Deformities: No evidence of hammertoes, bunions, Charcot changes, or other structural abnormalities. Muscle strength: 5/5 in all muscle groups. Gait: Normal, no antalgic or steppage gait observed. Footwear Assessment: Shoes inspected; appropriate fit, no excessive wear, or foreign objects noted. Results Reviewed Results Reviewed: Laboratory Tests 08/17/25 15:46 Hgb A1c (Clinic) 11.5 H X-ray Read: 08/13/2025 X-ray right foot 3 views (AP, MO, Lateral) reviewed which shows mild plantar calcaneal spur and superior porsterior calcaneal exostosis. I personally reviewed the imaging and my findings are listed above. Assessment & Plan Assessment & Plan (1) Plantar fasciitis of right foot: Code(s): M72.2 - Plantar fascial fibromatosis Category: Medical Plan: * Discussed etiology of the patient's foot pain. Differential diagnosis includes plantar fasciitis, neuritis, tendinitis. * Reviewed right foot x-rays with the patient. Mild plantar calcaneal spur, no surgical recommendations at this time. * Patient educated on the nature and etiology of plantar fasciitis, which involv es inflammation and microtearing of the plantar fascia due to repetitive stress and overuse. * The patient was counseled on conservative management of plantar fasciitis, including daily stretching exercises targeting the plantar fascia and Achilles tendon, use of supportive and properly fitting footwear, and consideration of custom or prefabricated orthotics to improve foot biomechanics. * Discussed that if symptoms persist despite these measures, further interventions such as corticosteroid injections may be considered once he receives glycemic control. A1c currently 11.5%. * Instructed the patient on home stretching and range of motion exercises including calf-stretches, frozen water bottle therapy, band-therapy. * Recommended supportive shoe-wear with arch-supports to avoid increased loading on the patient's plantar fascia band. * Rx Meloxicam * Discussed possible physical therapy however the patient would like to trial therapy at home prior to proceeding. * Follow up in 1 month (2) Diabetes mellitus, with long-term current use of insulin: Code(s): E11.9 - Type 2 diabetes mellitus without complications; Z79.4 - skilled nursing (current) use of insulin Category: Medical Qualifiers: Diabetes mellitus complication detail: with other skin complication Diabetes mellitus complication status: with skin complications Diabetes mellitus type: type 2 Qualified Code(s): E11.628 - Type 2 diabetes mellitus with other skin complications; Z79.4 - skilled nursing (current) use of insulin Plan: * Educated patient on signs of peripheral neuropathy and concerns for infection * Recommended improving glycemic control Medications: New meloxicam Take one tablet with food daily 15 mg PO DAILY 30 tabs 0RF plantar fasciitis M72.2 - Plantar fascial fibromatosis Coding Level of Care Code New Pt Level 4 (58028) Diagnoses Plantar fasciitis of right foot M72.2 Type 2 diabetes mellitus with other skin complication, with long-term current use of insulin E11.628; Z79.4 Diabetes mellitus complication detail: with other skin complication Diabetes mellitus complication status: with skin complications Diabetes mellitus type: type 2 Time Spent (min) 35
--- OUTSIDE RECORDS SUMMARY | 2025-09-17 17:43 | XMS_ITS | Encounter Summary ---
Author Organization [employer] Address [address] [place] [address] Care Team Providers Care Rn Cvicu Name Role Phone Unavailable Primary Care Provider Unavailabl e Encounter Details Date Type Department Care Team (Late st Contact Info) Description 05/19/2023 Orders Only [facility] [address] [place] [address] Stephenie Weaver, PharmD [address] [place] [address] Social History Tobacco Use Types Packs/Day Years Used Date Smoking Tobacco: Never Assessed Sex and Gender Information Value Date Recorded Sex Assigned at Male 08/10/2022 10:31 AM EDT Legal Sex Male 10:31 AM EDT Gender Identity Not on file Sexual Orientation Not on file documented as of this encounter Plan of Treatment Not on file documented as of this encounter Visit Diagnoses Not on filedocumented in this encounter
--- OUTSIDE RECORDS SUMMARY | 2025-09-17 17:43 | XMS_ITS | Clinical Summary ---
Author Organization [employer] Address [address] [place] [address] Care Team Providers Care Station Gateman Name Role Phone Unavailable Primary Care Provider Unavailabl e Social History Tobacco Use Types Packs/Day Years Used Date Smoking Tobacco: Never Assessed Sex and Gender Information Value Date Recorded Sex Assigned at Male 08/10/2022 10:31 AM EDT Legal Sex Male 10:31 AM EDT Gender Identity Not on file Sexual Orientation Not on file Plan of Treatment Health Maintenance Due Date Last Done Comments CT Colonography 1970 Colonoscopy 1970 Colorectal Cancer Screening 1970 Depression Screening 1970 FIT DNA/Cologuard 1970 FIT 1970 FOBT 1970 Lipid Panel 1970 Sigmoidoscopy 1970 Disability Screening 1970 Alcohol/Substance Use Screening 1982 Tobacco Screening 1982 Hepatitis B Vaccines (1 of 3 - 19+ 3-dose series) 1989 Pneumococcal Vaccine: 50+ Years (1 of 1 - PCV) 2020 Zoster Vaccines (1 of 2) 2020 COVID-19 Vaccine (3 - 2024-2 6 season) 2025 02/05/2021, 01/09/2021 Influenza Vaccine (#1) 2025 10/20/2023 DTaP/Tdap/Td Vaccines (3 - T d or Tdap) 12/24/2028 12/24/2018, 04/21/2017 RSV Patients and Patients Aged 60 years or older (1 - 1-dose 75+ series) 2045 HIB Vaccines Aged Out No longer eligi ble based on patient's age to complete this topic HPV Vaccines Aged Out No longer eligi ble based on patient's age to complete this topic Hepatitis A Vaccines Aged Out No long er eligible based on patient's age to complete this topic IPV Vaccines Aged Out No longer eligi ble based on patient's age to complete this topic Meningococcal B Vaccine Aged Out No l onger eligible based on patient's age to complete this topic Meningococcal Vaccine Aged Out No erick javed eligible based on patient's age to complete this topic RSV under 20 months Aged Out No longe r eligible based on patient's age to complete this topic Rotavirus Vaccines Aged Out No longer eligible based on patient's age to complete this topic
== END 2025-09-17 11:39 | disposition home or self-care (01) ==
LOC: HO.HPODS 10:37
PROVIDERS: PCP Internal Medicine; Visit Provider Student in an Organized Health Care Education/Training Program
DX: M72.2 Plantar fascial fibromatosis (principal); E11.628 Type 2 diabetes mellitus with other skin complications; Z79.4 Long term (current) use of insulin
CPT/HCPCS: 99204

== ENCOUNTER → 2025-09-17 10:36 | Outpatient (BNVA) | payer OTHER, SELFPAY | PROVIDERS: PCP Internal Medicine; Visit Provider Student in an Organized Health Care Education/Training Program | DX: M72.2 Plantar fascial fibromatosis (principal); E11.628 Type 2 diabetes mellitus with other skin complications; Z79.4 Long term (current) use of insulin | CPT/HCPCS: 99202 ==